=== PATIENT | female | born 1965 | race Caucasian/White ===

== ENCOUNTER 2018-05-31 09:50 | Inpatient (IN) | payer MEDICARE, OTHER | END 2018-06-17 11:21 | disposition home or self-care (01) | LOC: ADULT MH 09:50 | DX: F25.0 Schizoaffective disorder, bipolar type (principal); E86.1 Hypovolemia; I10 Essential (primary) hypertension ==

== ENCOUNTER 2022-02-09 12:38 | Emergency (ER) | payer MEDICARE ==
[~2022-02-09] VITALS: Ht 167.6 cm; Wt 72.7 kg
[~2022-02-09 12:38] MED LIST: DIVA250T8 PO; RISP2TAB85 PO; TEMA15CA PO
[2022-02-09 12:58] VITALS: BP 92/61
--- NOTE | 2022-02-09 13:10 | NUR ---
PT WENT UP TO REGISTRATION WINDOW AND STATED "I CHANGED MY MIND", TOOK OFF HER BP CUFF AND LEFT OUT THE FRONT DOOR.
== END 2022-02-09 13:10 | disposition left against medical advice (07) ==
LOC: ER 12:38
DX: G20 Parkinson's disease (principal); Z53.21 Procedure and treatment not carried out due to patient leaving prior to being seen by health care provider

== ENCOUNTER 2022-02-14 16:56 | Inpatient (IN) | payer MEDICARE, MEDICAID ==
[~2022-02-14] VITALS: Ht 167.6 cm; Wt 68.8 kg
[2022-02-14 18:45] LABS: BASOPHILS # (AUTO) 0.1 X10'3 (0-0.2); BASOPHILS % (AUTO) 0.5 % (0-1); EOSINOPHILS # (AUTO) 0.1 X10'3 (0-0.9); EOSINOPHILS % (AUTO) 0.8 % (0-6); HEMATOCRIT 32.4 % (35.0-45.0); HEMOGLOBIN 11.1 g/dl (12.0-16.0); LYMPHOCYTES # (AUTO) 2.7 X10'3 (1.1-4.8); LYMPHOCYTES % (AUTO) 28.2 % (21-51); MEAN CORPUSCULAR HEMOGLOBIN 32.6 PG (27.0-31.0); MEAN CORPUSCULAR HGB CONC 34.2 g/dL (33.0-36.5); MEAN CORPUSCULAR VOLUME 95.2 FL (78-98); MEAN PLATELET VOLUME 7.7 FL (7.4-10.4); MONOCYTES # (AUTO) 0.9 X10'3 (0-0.9); MONOCYTES % (AUTO) 9.5 % (2-12); NEUTROPHILS # (AUTO) 5.9 X10'3 (1.8-7.7); PLATELET COUNT 100 X10'3 (140-440); RED BLOOD COUNT 3.41 X10'6 (4.20-5.60); RED CELL DISTRIBUTION WIDTH 17.5 % (11.5-14.5); WHITE BLOOD COUNT 9.7 X10'3 (4.5-11.0)
[2022-02-14 18:47] LABS: ALANINE AMINOTRANSFERASE 19 U/L (12-78); ALBUMIN 3.6 G/DL (3.4-5.0); ALBUMIN/GLOBULIN RATIO 0.8 (1.1-1.5); ALKALINE PHOSPHATASE 544 IU/L (46-116); ANION GAP 9 (8-16); ASPARTATE AMINO TRANSFERASE 36 U/L (10-37); BILIRUBIN,TOTAL 0.4 MG/DL (0.1-1.0); BLOOD UREA NITROGEN 12 MG/DL (7-18); BUN/CREATININE RATIO 11.7 (6.6-38.0); CALCIUM 10.5 MG/DL (8.5-10.1); CHLORIDE 97 MMOL/L (99-107); CREATININE 1.03 MG/DL (0.40-0.90); GLUCOSE 92 MG/DL (70-104); POTASSIUM 3.7 MMOL/L (3.5-5.1); SODIUM 132 MMOL/L (135-145); TOTAL CARBON DIOXIDE 26.4 MMOL/L (24-32); TOTAL PROTEIN 7.9 G/DL (6.4-8.2); eGFR 56 ML/MIN
[2022-02-14 19:10] LABS: ETHANOL < 0.010 GM/DL (0.0-0.010)
[2022-02-14 20:08] LABS: ANISOCYTOSIS 1+; NUCLEATED RED BLOOD CELLS 3 /100WBC (0-0); PLATELET ESTIMATE DECREASED; TOTAL CELLS COUNTED 100
--- NOTE | 2022-02-14 22:40 | NUR ---
PT MOVED FROM HALLWAY 16 TO OVERFLOW BED 20. PT'S BELONGINGS HAVE BEEN TAKEN AND LOCKED UP. PT CHANGED INTO GREEN SCRUBS AND PROVIDED A URINE SAMPLE. PT NOW LYING IN BED.
[2022-02-14 22:50] LABS: CLARITY,URINE SLIGHTLY CLOUDY (Clear); GLUCOSE, URINE NEGATIVE (Neg); KETONES,URINE NEGATIVE (Neg); LEUKOCYTE ESTERASE ,URINE MODERATE (Neg); NITRITES, URINE POSITIVE (Neg); OCCULT BLOOD,URINE TRACE-INTACT (Neg); PROTEIN,URINE NEGATIVE (Neg); UROBILINOGEN,URINE 0.2 E.U/dL (0.2-1.0)
[2022-02-14 22:58] LABS: COLOR,URINE STRAW (Yellow); UA COLLECTION TYPE CLN CATCH MIDSTREAM
[2022-02-14 23:01] LABS: BACTERIA,URINE 4+ /HPF (Neg); MUCUS STRANDS FEW /LPF (Neg); RBC,URINE 0-2 /HPF (0-2); SQUAMOUS EPITHELIAL CELL,UR FEW /LPF (FEW); TRANSITIONAL EPI CELLS,URINE FEW /HPF; WBC CLUMPS,URINE FEW /HPF (NEGATIVE)
[2022-02-14 23:04] LABS: URINE AMPHETAMINE SCREEN NEGATIVE (Neg); URINE BARBITUATE SCREEN NEGATIVE (Neg); URINE BENZODIAZEPINES SCREEN NEGATIVE (Neg); URINE CANNABINOID SCREEN POSITIVE (Neg); URINE COCAINE SCREEN NEGATIVE (Neg); URINE METHADONE SCREEN NEGATIVE (Neg); URINE OPIATE SCREEN NEGATIVE (Neg); URINE PHENCYCLIDINE SCREEN NEGATIVE (Neg)
--- NOTE | 2022-02-14 23:13 | NUR ---
[facility] faxed
--- NOTE | 2022-02-14 23:30 | NUR ---
PT SLEEPING ON HER SIDE. EQUAL RISE AND FALL OF CHEST.
[2022-02-14] MEDS: sulfamethoxazole/trimethoprim DS (800/160mg) tablet PO SCH (23:55)
--- NOTE | 2022-02-15 00:30 | NUR ---
SPOKE TO [facility] CONCERNING PT'S URINE RESULTS. HE PUT IN ORDERS FOR ANTIBIOTICS. PT MEDICATED WITH FIRST DOSE AND NOW TRYING TO SLEEP AGAIN.
--- NOTE | 2022-02-15 01:30 | NUR ---
PT WALKED TO RESTROOM AND IS NOW BACK IN BED SLEEPING COMFORTABLY.
--- NOTE | 2022-02-15 02:30 | NUR ---
PT SLEEPING COMFORTABLY. EQUAL RISE AND FALL OF CHEST.
--- NOTE | 2022-02-15 03:30 | NUR ---
PT SLEEPING ON HER RIGHT SIDE. EQUAL RISE AND FALL OF CHEST.
--- NOTE | 2022-02-15 04:28 | NUR ---
PT GOT UP AND WALKED TO THE RESTROOM. PT NOW BACK IN BED AND ATTEMPTING TO SLEEP AGAIN.
--- NOTE | 2022-02-15 05:32 | NUR ---
PT IS CURLED UP WITH BLANKET AND SLEEPING ON HER SIDE AFTER HER VITALS WERE TAKEN BY TECH. EQUAL RISE AND FALL OF CHEST.
--- NOTE | 2022-02-15 07:45 | NUR ---
Pt has a baseline tremors. "That is because I have a psychiatric condition."
[2022-02-15] MEDS: sulfamethoxazole/trimethoprim DS (800/160mg) tablet PO SCH ×2 (08:25→20:29)
--- NOTE | 2022-02-15 09:22 | NUR ---
Up to void. Steady gait.
--- NOTE | 2022-02-15 09:24 | NUR ---
Pt was not hungry and did not eat breakfast. She did have a cup of coffee.
--- NOTE | 2022-02-15 10:45 | NUR ---
Nurse to Nurse report given to VANGIE Jara at [facility].
--- NOTE | 2022-02-15 11:11 | NUR ---
Report was given to VANGIE Madden in [facility]. They are not ready to accept the pt at this time but took report.
--- NOTE | 2022-02-15 12:31 | NUR ---
Pt c/o upper back pain after stretching.
[2022-02-15] MEDS ORDERED: acetaminophen 325mg tablet PO ONE (12:35)
[2022-02-15] MEDS ORDERED: PROP10TA10 PO (12:50)
[2022-02-15] MEDS ORDERED: BENZ0.5T43 PO (12:50)
[2022-02-15] MEDS ORDERED: LIT300C PO (12:50)
[2022-02-15] MEDS ORDERED: OLAN5TAB5 PO (12:50)
[2022-02-15] MEDS ORDERED: OLANZapine 5mg rapidly disint. tablet PO PRN (13:25)
[2022-02-15] MEDS ORDERED: loperamide 2mg capsule PO PRN (15:25)
[2022-02-15] MEDS ORDERED: NICOTINE POLACRILEX 2 MG LOZENGE BC PRN (15:25)
[2022-02-15] MEDS ORDERED: acetaminophen 325mg tablet PO PRN (15:25)
[2022-02-15] MEDS ORDERED: OLAN10TA3 PO (16:05)
--- NOTE | 2022-02-15 17:00 | NUR ---
ADMIT NOTE Pt admitted to [facility] at 1510 from [facility] on 5150 for GD. When [facility] clinician visited patient in her home, she was found to be disorganized, malodorous, unable to finish sentences appropriately, unable to care for herself, and not taking her medications correctly. She had rotten food in her home and wasnt sure when she had eaten last. She also reported that she was not feeling safe in her home, and was feeling that people were coming in and taking things. Skin and safety check completed. Belongings inventoried. UTI being treated with Septra
[2022-02-15] MEDS ORDERED: pneumococcal 23-VAL P-sac vacc 25 mcg/0.5ml vial IMVAC ONE (17:35)
[2022-02-15] MEDS: traMADol 50MG tablet PO PRN (18:17)
[2022-02-15 20:00] VITALS: BP 115/69
[2022-02-15] MEDS: traZODone 50mg tablet PO SCH (20:29)
[2022-02-15] MEDS: propranolol 10mg tablet PO SCH (20:29)
[2022-02-15] MEDS: benztropine 1mg tablet PO SCH (20:30)
--- NOTE | 2022-02-16 00:56 | NUR ---
Nursing Progress Note: Problem: Pt admitted to [facility] at 1510 from [facility] on 5150 for GD. When [facility] clinician visited patient in her home, she was found to be disorganized, malodorous, unable to finish sentences appropriately, unable to care for herself, and not taking her medications correctly. She had rotten food in her home and wasnt sure when she had eaten last. She also reported that she was not feeling safe in her home, and was feeling that people were coming in and taking things. Interventions: One on one with patient, administered medications with an explanation of the benefits,provided redirection, positive reinforcement, therapeutic conversation, active listening, monitored behaviors, maintained clear boundaries. Monitored for safety Q15 min. Response: Patient laying in bed at shift change. Patient 1:1, Patient speech linear with normal rate and rhythm. The patient denies A/VH SI HI. Patient reports she is here due to a back sprain when she picked up her cat. patient describes a cracking sound coming from her back and now she is here to be treated. Patient isolated to room and self most of the evening. The patient took evening meds w/o complications. Patient went to sleep shortly after med pass. Plan: Patient requires crisis interruption and stabilization with medication management and monitoring in a safe and therapeutic environment with food, clothing and snf.
[2022-02-16 07:19] VITALS: BP 93/64
[2022-02-16] MEDS: nicotine 21mg patch - 24 hr TD SCH (08:00)
[2022-02-16] MEDS: propranolol 10mg tablet PO SCH ×2 (08:00→20:43)
[2022-02-16] MEDS: sulfamethoxazole/trimethoprim DS (800/160mg) tablet PO SCH ×2 (08:19→20:43)
[2022-02-16] MEDS: OLANZapine 5mg rapidly disint. tablet PO SCH (08:19)
[2022-02-16] MEDS: benztropine 1mg tablet PO SCH ×2 (08:19→20:43)
[2022-02-16 08:41] LABS: HEMOGLOBIN A1C 6.2 % (4.5-6.2)
[2022-02-16 09:31] LABS: CHOL/HDL RATIO 3.1 (0.00-4.99); CHOLESTEROL 159 MG/DL (0-200); HDL CHOLESTEROL 51 MG/DL (35-60); LDL CHOLESTEROL 80 MG/DL (50-100); TRIGLYCERIDES 153 MG/DL (20-135)
[2022-02-16] MEDS: traMADol 50MG tablet PO PRN ×2 (15:28→20:59)
--- NOTE | 2022-02-16 17:44 | NUR ---
Nursing Progress Note: Problem: Pt admitted to [facility] at 1510 from [facility] on 5150 for GD. When [facility] clinician visited patient in her home, she was found to be disorganized, malodorous, unable to finish sentences appropriately, unable to care for herself, and not taking her medications correctly. She had rotten food in her home and wasnt sure when she had eaten last. She also reported that she was not feeling safe in her home, and was feeling that people were coming in and taking things. Interventions: One on one with patient, administered medications with an explanation of the benefits, provided redirection, positive reinforcement, therapeutic conversation, active listening, monitored behaviors, maintained clear boundaries. Monitored for safety Q15 min. Response: RN received pt. asleep in bed at start of shift. Pt. took all medications and ate breakfast. Pt. isolated to her room most of the day and is socially withdrawn. 1:1 done at bedside, pt. reports she is here because of her back pain. pt. denies all psych symptoms, however, pt. appears to be responding to internal stimuli AEB frequent thought blocking. When asked if she is hearing voices, pt. states, Well Its like seeing an image and being there, like going back in time with the light A movie kind of. Pt. is A&O to self and place only. Pt. states, youre going to be calling the [facility] when Im better right? Pt. c/o of back pain rated 10/10 and received Ultram 50mg po x2 today. Plan: Patient requires crisis interruption and stabilization with medication management and monitoring in a safe and therapeutic environment with food, clothing and usp.
[2022-02-16 19:00] VITALS: BP 103/66
[2022-02-16 19:50] LABS: BASOPHILS # (AUTO) 0.1 X10'3 (0-0.2); EOSINOPHILS # (AUTO) 0.1 X10'3 (0-0.9); HEMATOCRIT 28.7 % (35.0-45.0); HEMOGLOBIN 9.8 g/dl (12.0-16.0); MEAN CORPUSCULAR HEMOGLOBIN 32.7 PG (27.0-31.0); MEAN CORPUSCULAR HGB CONC 34.2 g/dL (33.0-36.5); MEAN CORPUSCULAR VOLUME 95.6 FL (78-98); MEAN PLATELET VOLUME 7.8 FL (7.4-10.4); MONOCYTES # (AUTO) 0.6 X10'3 (0-0.9); RED BLOOD COUNT 3.01 X10'6 (4.20-5.60)
[2022-02-16 19:51] LABS: BASOPHILS % (AUTO) 0.9 % (0-1); EOSINOPHILS % (AUTO) 1.7 % (0-6); LYMPHOCYTES # (AUTO) 2.3 X10'3 (1.1-4.8); MONOCYTES % (AUTO) 7.4 % (2-12); NEUTROPHILS # (AUTO) 4.8 X10'3 (1.8-7.7); PLATELET COUNT 97 X10'3 (140-440); RED CELL DISTRIBUTION WIDTH 18.5 % (11.5-14.5); WHITE BLOOD COUNT 7.9 X10'3 (4.5-11.0)
[2022-02-16 20:03] LABS: ALANINE AMINOTRANSFERASE 16 U/L (12-78); ALBUMIN 2.9 G/DL (3.4-5.0); ALBUMIN/GLOBULIN RATIO 0.9 (1.1-1.5); ALKALINE PHOSPHATASE 428 IU/L (46-116); ANION GAP 10 (8-16); ASPARTATE AMINO TRANSFERASE 21 U/L (10-37); BILIRUBIN,TOTAL 0.2 MG/DL (0.1-1.0); BLOOD UREA NITROGEN 9 MG/DL (7-18); BUN/CREATININE RATIO 8.7 (6.6-38.0); CALCIUM 9.9 MG/DL (8.5-10.1); CHLORIDE 101 MMOL/L (99-107); CREATININE 1.03 MG/DL (0.40-0.90); GLUCOSE 90 MG/DL (70-104); POTASSIUM 4.1 MMOL/L (3.5-5.1); SODIUM 135 MMOL/L (135-145); TOTAL CARBON DIOXIDE 24.5 MMOL/L (24-32); TOTAL PROTEIN 6.3 G/DL (6.4-8.2); eGFR 56 ML/MIN
[2022-02-16] MEDS: traZODone 50mg tablet PO SCH (20:43)
[2022-02-16] MEDS: ferrous sulfate 325mg tablet PO SCH (20:52)
[2022-02-16 22:04] LABS: NUCLEATED RED BLOOD CELLS 4 /100WBC (0-0); TOTAL CELLS COUNTED 100
[2022-02-16 22:05] LABS: ANISOCYTOSIS 1+; BURR CELLS 1+; PLATELET ESTIMATE DECREASED
--- NOTE | 2022-02-17 02:56 | NUR ---
Nursing Progress Note: Problem: Pt admitted to [facility] at 1510 from [facility] on 5150 for GD. When [facility] clinician visited patient in her home, she was found to be disorganized, malodorous, unable to finish sentences appropriately, unable to care for herself, and not taking her medications correctly. She had rotten food in her home and wasnt sure when she had eaten last. She also reported that she was not feeling safe in her home, and was feeling that people were coming in and taking things. Interventions: One on one with patient, administered medications with an explanation of the benefits, provided redirection, positive reinforcement, therapeutic conversation, active listening, monitored behaviors, maintained clear boundaries. Monitored for safety Q15 min. Response: Patient is pleasant and cooperative with care; compliant with medication. PRN Tramadol provided per patient request. Patient reported her Nicotine patch fell off during the day. She denies SI, HI, A/VH. She remains self isolative and did not participate in HS snack; observed sleeping and does not appear to be having difficulty. Plan: Patient requires crisis interruption and stabilization with medication management and monitoring in a safe and therapeutic environment with food, clothing and prison.
[2022-02-17 08:00] VITALS: BP 85/50
[2022-02-17] MEDS: propranolol 10mg tablet PO SCH ×2 (08:00→20:00)
[2022-02-17] MEDS: ferrous sulfate 325mg tablet PO SCH ×2 (08:57→20:42)
[2022-02-17] MEDS: benztropine 1mg tablet PO SCH ×2 (08:57→20:42)
[2022-02-17] MEDS: sulfamethoxazole/trimethoprim DS (800/160mg) tablet PO SCH ×2 (08:57→20:42)
[2022-02-17] MEDS: nicotine 21mg patch - 24 hr TD SCH (08:58)
[2022-02-17] MEDS: OLANZapine 5mg rapidly disint. tablet PO SCH (08:58)
[2022-02-17 09:00] VITALS: BP 93/56
[2022-02-17] MEDS: magnesium hydroxide 30ml (MOM) UD suspension PO PRN (14:58)
--- NOTE | 2022-02-17 15:04 | NUR ---
Nursing Progress Note: KIA Problem: Pt admitted to [facility] at 1510 from [facility] on 5150 for GD. When [facility] clinician visited patient in her home, she was found to be disorganized, malodorous, unable to finish sentences appropriately, unable to care for herself, and not taking her medications correctly. She had rotten food in her home and wasnt sure when she had eaten last. She also reported that she was not feeling safe in her home, and was feeling that people were coming in and taking things. Interventions: One on one with patient, administered medications with an explanation of the benefits, provided redirection, positive reinforcement, therapeutic conversation, active listening, monitored behaviors, maintained clear boundaries. Monitored for safety Q15 min. Response: Received pt. asleep in bed. 1:1 done at bedside, A&O X4. Medication compliant. Kia states she is here because, my back was injured causing me to put my mental health concerns somewhere else. Pt denies A/VH stating, I visualize pictures because I like art. Pt attended breakfast eating 0% and 25% for lunch. Pt continues to isolate and spent the majority of the shift in bed other than meals and snack. Pt c/o constipation, MOM administered. Plan: Patient requires crisis interruption and stabilization with medication management and monitoring in a safe and therapeutic environment with food, clothing and retirement.
[2022-02-17] MEDS: traMADol 50MG tablet PO PRN (16:37)
[2022-02-17 19:58] VITALS: BP 88/59
[2022-02-17] MEDS: traZODone 50mg tablet PO SCH (20:42)
[2022-02-17 20:46] VITALS: BP 90/70
--- NOTE | 2022-02-18 05:14 | NUR ---
Nursing Progress Note: Problem: Pt admitted to [facility] at 1510 from [facility] on 5150 for GD. When [facility] clinician visited patient in her home, she was found to be disorganized, malodorous, unable to finish sentences appropriately, unable to care for herself, and not taking her medications correctly. She had rotten food in her home and wasnt sure when she had eaten last. She also reported that she was not feeling safe in her home, and was feeling that people were coming in and taking things. Interventions: One on one with patient, administered medications with an explanation of the benefits, provided redirection, positive reinforcement, therapeutic conversation, active listening, monitored behaviors, maintained clear boundaries. Monitored for safety Q15 min. Response: Patient is pleasant and cooperative with care; compliant with medication. PRN Nicotine lozenge provided and patch removed. She denies SI, HI, A/VH; continues to report being here for back problems. She was briefly observed on the unit and participated in HS snack; observed sleeping and does not appear to be having difficulty. Plan: Patient requires crisis interruption and stabilization with medication management and monitoring in a safe and therapeutic environment with food, clothing and assisted.
[2022-02-18 07:56] VITALS: BP 91/61
[2022-02-18] MEDS: benztropine 1mg tablet PO SCH ×2 (08:07→20:42)
[2022-02-18] MEDS: ferrous sulfate 325mg tablet PO SCH ×2 (08:07→20:42)
[2022-02-18] MEDS: sulfamethoxazole/trimethoprim DS (800/160mg) tablet PO SCH ×2 (08:08→20:42)
[2022-02-18] MEDS: propranolol 10mg tablet PO SCH ×2 (08:08→20:00)
[2022-02-18] MEDS: nicotine 21mg patch - 24 hr TD SCH (08:09)
[2022-02-18] MEDS: OLANZapine 5mg rapidly disint. tablet PO SCH (08:09)
[2022-02-18 11:43] LABS: % IRON SATURATION 46 % (11-46); IRON 86 UG/DL (49-151); TOTAL IRON BINDING CAPACITY 188 UG/DL (259-388)
[2022-02-18] MEDS: mag hydrox/Alum hydrox/simeth 30ml oral suspension PO PRN ×2 (12:37→16:32)
--- NOTE | 2022-02-18 17:02 | NUR ---
Nursing Progress Note: Problem: Pt admitted to [facility] at 1510 from [facility] on 5150 for GD. When [facility] clinician visited patient in her home, she was found to be disorganized, malodorous, unable to finish sentences appropriately, unable to care for herself, and not taking her medications correctly. She had rotten food in her home and wasnt sure when she had eaten last. She also reported that she was not feeling safe in her home, and was feeling that people were coming in and taking things. Interventions: Provided Medication Administration & Management; Maintained a Safe & Supportive Environment; Clear & Simple Instructions; Direction & Encouragement Regarding Performance of ADLs; Monitored Behaviors and Maintained Clear Boundaries; Provided Physical Assessment and 1:1 Patient Interview; Therapeutic Conversation & Active Listening; Education & Monitoring; Encouragement to spend time outside of his/her room; Encouragement to Attend Group Meetings; Clarification of PRN Medications w/Uses & Clarification of Dosage/Times & Blood Sugar Monitoring. Response: Received patient when she arrived in the Community Room for breakfast at 0805. Patient is pleasant and cooperative in taking her medications at 0800, as well as her physical examination and 1:1 interview questions. Patient c/o back pain rated at a 10 on a scale of 1-10. Patient received relief from Ultram approximately 1 hour later. Patient appears to be slightly disorganized, laughs easily and gets along well with others. Patient reports she feels safe at [facility] while staying here. Will continue to monitor patient closely over the next few days while assigned to her care. Plan: Pt. requires a safe and supportive environment, medication titration until effective dose, needs to be monitored for crisis stabilization, and a viable plan for food, water & retirement for discharge.
[2022-02-18] MEDS: traMADol 50MG tablet PO PRN (17:28)
[2022-02-18 19:57] VITALS: BP 100/78
[2022-02-18] MEDS: traZODone 50mg tablet PO SCH (20:42)
--- NOTE | 2022-02-19 04:23 | NUR ---
Nursing Progress Note: Problem: Pt admitted to [facility] at 1510 from [facility] on 5150 for GD. When [facility] clinician visited patient in her home, she was found to be disorganized, malodorous, unable to finish sentences appropriately, unable to care for herself, and not taking her medications correctly. She had rotten food in her home and wasnt sure when she had eaten last. She also reported that she was not feeling safe in her home, and was feeling that people were coming in and taking things. Interventions: One on one with patient, administered medications with an explanation of the benefits, provided redirection, positive reinforcement, therapeutic conversation, active listening, monitored behaviors, maintained clear boundaries. Monitored for safety Q15 min. Response: Patient is pleasant and cooperative with care; compliant with medication. Nicotine patch removed. She denies SI, HI, A/VH; no apparent delusions expressed this shift. She remains in her room the majority of the shift but participated in HS snack prior to bed; observed sleeping and does not appear to be having difficulty. Plan: Patient requires crisis interruption and stabilization with medication management and monitoring in a safe and therapeutic environment with food, clothing and fci.
--- NOTE | 2022-02-19 07:39 | NUR ---
Initial: Pt admitted w/ schizophrenia per EMR. Currently on Regular diet w/ avg intake 45% of meals and participates in snacks per documentation, only partially meeting needs. Will provide smoothies and shakes with meals for additional calories/protein. [facility] 02/17 receiving PRN bowel care. Will continue to monitor. Recs; 1. Continue Regular diet as tolerated 2. Smoothie WB, Shake WS 3. Bowel care PRN 4. Weekly wts Addendum: 02/19/22 at [address] Amended: Links added.
[2022-02-19 08:00] VITALS: BP 109/78
[2022-02-19] MEDS: ferrous sulfate 325mg tablet PO SCH ×2 (08:15→20:45)
[2022-02-19] MEDS: benztropine 1mg tablet PO SCH ×2 (08:15→20:45)
[2022-02-19] MEDS: propranolol 10mg tablet PO SCH ×2 (08:15→20:46)
[2022-02-19] MEDS: sulfamethoxazole/trimethoprim DS (800/160mg) tablet PO SCH ×2 (08:16→20:45)
[2022-02-19] MEDS: OLANZapine 5mg rapidly disint. tablet PO SCH (08:16)
[2022-02-19] MEDS: nicotine 21mg patch - 24 hr TD SCH (08:16)
[2022-02-19] MEDS: traMADol 50MG tablet PO PRN ×2 (12:16→19:28)
[2022-02-19] MEDS: nystatin 15 GM powder TP SCH ×2 (12:16→20:45)
[2022-02-19] MEDS: acetaminophen 325mg tablet PO PRN (16:27)
--- NOTE | 2022-02-19 17:26 | NUR ---
Nursing Progress Note: Problem: Pt admitted to [facility] at 1510 from [facility] on 5150 for GD. When [facility] clinician visited patient in her home, she was found to be disorganized, malodorous, unable to finish sentences appropriately, unable to care for herself, and not taking her medications correctly. She had rotten food in her home and wasnt sure when she had eaten last. She also reported that she was not feeling safe in her home, and was feeling that people were coming in and taking things. Interventions: Provided Medication Administration & Management; Maintained a Safe & Supportive Environment; Clear & Simple Instructions; Direction & Encouragement Regarding Performance of ADLs; Monitored Behaviors and Maintained Clear Boundaries; Provided Physical Assessment and 1:1 Patient Interview; Therapeutic Conversation & Active Listening; Education & Monitoring; Encouragement to spend time outside of his/her room; Encouragement to Attend Group Meetings; Clarification of PRN Medications w/Uses & Clarification of Dosage/Times & Blood Sugar Monitoring. Response: Patient was sleeping soundly this morning and she would wake up briefly to inform that she was going to the dining room to eat breakfast, then would fall right back to sleep. Patient took her medications while in bed this morning, and refused to get out of bed for breakfast. Patient has drank multiple pitchers of H20 throughout today. Patient woke up at approximately 0855 and stayed up and out of bed today. Patient spent most of the day with other peers in the Community Room. Patient reported she is itching in my vaginal area. Redness noted and spoke with Dr. Pruitt and ordered Nystatin Powder to be used tid. Patient used after she showered and received clean underwear and then used the Nystatin Powder on her vaginal area. Patient c/o low posterior back pain which she received Ultram x1 and Tylenol x1 for c/o back pain rated at a 10. Patient is linear most of the time and denies SI, AH & VH. Patient resting in bed at this time. Plan: Pt. requires a safe and supportive environment, medication titration until effective dose, needs to be monitored for crisis stabilization, and a viable plan for food, water & custodial for discharge.
[2022-02-19 19:38] VITALS: BP 113/78
[2022-02-19] MEDS: traZODone 50mg tablet PO SCH (20:45)
[2022-02-19] MEDS: mag hydrox/Alum hydrox/simeth 30ml oral suspension PO PRN (21:25)
--- NOTE | 2022-02-20 05:08 | NUR ---
Nursing Progress Note: Problem: Pt admitted to [facility] at 1510 from [facility] on 5150 for GD. When [facility] clinician visited patient in her home, she was found to be disorganized, malodorous, unable to finish sentences appropriately, unable to care for herself, and not taking her medications correctly. She had rotten food in her home and wasnt sure when she had eaten last. She also reported that she was not feeling safe in her home, and was feeling that people were coming in and taking things. Interventions: One on one with patient, administered medications with an explanation of the benefits, provided redirection, positive reinforcement, therapeutic conversation, active listening, monitored behaviors, maintained clear boundaries. Monitored for safety Q15 min. Response: Patient is pleasant and cooperative with care; compliant with medication. Nicotine patch removed. PRN Tramadol and Maalox provided. She denies SI, HI, A/VH. She remains fixated on back pain; reporting 10/10 pain even after receiving pain medication. She mostly stays in her room, social with roommate and staff, participated in HS snack prior to bed; she's observed sleeping and does not appear to be having difficulty. Plan: Patient requires crisis interruption and stabilization with medication management and monitoring in a safe and therapeutic environment with food, clothing and usp.
[2022-02-20] MEDS: benztropine 1mg tablet PO SCH ×2 (07:57→20:20)
[2022-02-20] MEDS: ferrous sulfate 325mg tablet PO SCH ×2 (07:58→20:20)
[2022-02-20] MEDS: OLANZapine 5mg rapidly disint. tablet PO SCH (07:58)
[2022-02-20] MEDS: nicotine 21mg patch - 24 hr TD SCH (07:59)
[2022-02-20] MEDS: propranolol 10mg tablet PO SCH ×2 (07:59→20:20)
[2022-02-20 08:00] VITALS: BP 84/58
[2022-02-20] MEDS: nystatin 15 GM powder TP SCH ×3 (08:02→20:20)
[2022-02-20] MEDS: traMADol 50MG tablet PO PRN ×2 (09:28→17:20)
[2022-02-20] MEDS: mag hydrox/Alum hydrox/simeth 30ml oral suspension PO PRN ×2 (16:09→22:29)
--- NOTE | 2022-02-20 17:08 | NUR ---
Nursing Progress Note: Problem: Pt admitted to [facility] at 1510 from [facility] on 5150 for GD. When [facility] clinician visited patient in her home, she was found to be disorganized, malodorous, unable to finish sentences appropriately, unable to care for herself, and not taking her medications correctly. She had rotten food in her home and wasnt sure when she had eaten last. She also reported that she was not feeling safe in her home, and was feeling that people were coming in and taking things. Interventions: Provided Medication Administration & Management; Maintained a Safe & Supportive Environment; Clear & Simple Instructions; Direction & Encouragement Regarding Performance of ADLs; Monitored Behaviors and Maintained Clear Boundaries; Provided Physical Assessment and 1:1 Patient Interview; Therapeutic Conversation & Active Listening; Education & Monitoring; Encouragement to spend time outside of his/her room; Encouragement to Attend Group Meetings; Clarification of PRN Medications w/Uses & Clarification of Dosage/Times & Blood Sugar Monitoring. Response: Patient awoke easily for her medications then refused to get up for breakfast in the Community Room. `Patient requested a Pain pill and received Ultram for c/o low back pain rated at 10 on a scale of 1-10. Post f/u after pain pill was administered patient was sleeping soundly. Physical Assessment & 1:1 Patient Interview completed. Patient denied SI, AH & VH. Patient is pleasant and cooperative at all times. Patients blood pressure was 84/58 sitting right arm. Inderal was held as her BP was less than 100. Patient reports her yeast infection, has improved since starting Nystatin Powder yesterday afternoon. Patient joined the [facility] who ambulated to the [facility] outside for approximately 30 minutes then returned to the department. Patient rested in bed most of the day today. Plan: Pt. requires a safe and supportive environment, medication titration until effective dose, needs to be monitored for crisis stabilization, and a viable plan for food, water & care home for discharge.
[2022-02-20 20:00] VITALS: BP 102/61
[2022-02-20] MEDS: traZODone 50mg tablet PO SCH (20:20)
[2022-02-20] MEDS: acetaminophen 325mg tablet PO PRN (22:30)
--- NOTE | 2022-02-21 05:00 | NUR ---
Nursing Progress Note: Problem: Pt admitted to [facility] at 1510 from [facility] on 5150 for GD. When [facility] clinician visited patient in her home, she was found to be disorganized, malodorous, unable to finish sentences appropriately, unable to care for herself, and not taking her medications correctly. She had rotten food in her home and wasnt sure when she had eaten last. She also reported that she was not feeling safe in her home, and was feeling that people were coming in and taking things. Interventions: One on one with patient, administered medications with an explanation of the benefits, provided redirection, positive reinforcement, therapeutic conversation, active listening, monitored behaviors, maintained clear boundaries. Monitored for safety Q15 min. Response: Patient is pleasant and cooperative with care; compliant with medication. PRN Tylenol and Maalox provided this shift; Nicotine patch removed. She denies SI, HI, A/VH. She is social and participated in HS snack prior to bed; observed sleeping and does not appear to be having difficulty. Plan: Patient requires crisis interruption and stabilization with medication management and monitoring in a safe and therapeutic environment with food, clothing and skilled nursing.
[2022-02-21 07:23] VITALS: BP 92/59
[2022-02-21] MEDS: nystatin 15 GM powder TP SCH ×2 (08:00→13:00)
[2022-02-21] MEDS: propranolol 10mg tablet PO SCH (08:00)
[2022-02-21] MEDS: ferrous sulfate 325mg tablet PO SCH (08:15)
[2022-02-21] MEDS: benztropine 1mg tablet PO SCH (08:15)
[2022-02-21] MEDS: OLANZapine 5mg rapidly disint. tablet PO SCH (08:16)
[2022-02-21] MEDS: nicotine 21mg patch - 24 hr TD SCH (08:18)
[2022-02-21] MEDS: traMADol 50MG tablet PO PRN ×2 (08:22→14:40)
[2022-02-21] MEDS: magnesium hydroxide 30ml (MOM) UD suspension PO PRN (10:18)
[2022-02-21] MEDS ORDERED: TRAZ-251 PO (13:52)
[2022-02-21] MEDS ORDERED: OLAN20TA34 PO (13:52)
[2022-02-21] MEDS ORDERED: PROP20TA6 PO (13:52)
[2022-02-21] MEDS ORDERED: NICO-687 TD (13:52)
[2022-02-21] MEDS ORDERED: FER325T PO (13:52)
[2022-02-21] MEDS ORDERED: BENZ0.5T4 PO (13:52)
[2022-02-21] MEDS ORDERED: LIDO700A32 TOP (13:55)
--- NOTE | 2022-02-21 14:53 | NUR ---
DISCHARGE NOTE: Pt. discharged to home, driven by [employer] li[employer] car driver. RN went over all discharge paperwork with patient and she verbalized understanding and signed all paperwork including firearms restriction, emergency phone numbers (including 911), and discharge f/u plan and medications. Pt. is A&O to self and place and is in no apparent distress. Pt denies SI/HI, A/V hallucinations. Pt. discharged with all belongings and valuables.
== END 2022-02-21 14:53 | disposition home or self-care (01) | DRG 885 ==
LOC: ER 16:57 → ED HOLD 02-15 12:25 → ADULT MH 02-15 15:06
PROVIDERS: ADMIT Psychiatry & Neurology Psychiatry; ATTEND Psychiatry & Neurology Psychiatry
DX: F25.0 Schizoaffective disorder, bipolar type (principal); N18.30 Chronic kidney disease, stage 3 unspecified; E87.1 Hypo-osmolality and hyponatremia; N39.0 Urinary tract infection, site not specified; D64.9 Anemia, unspecified; Z20.822 Contact with and (suspected) exposure to COVID-19; D69.6 Thrombocytopenia, unspecified; F15.10 Other stimulant abuse, uncomplicated; E83.52 Hypercalcemia; F12.10 Cannabis abuse, uncomplicated; G89.29 Other chronic pain; M54.9 Dorsalgia, unspecified; F17.210 Nicotine dependence, cigarettes, uncomplicated; Z79.899 Other long term (current) drug therapy; Z56.0 Unemployment, unspecified; Z91.199 Patient's noncompliance with other medical treatment and regimen due to unspecified reason; Z28.21 Immunization not carried out because of patient refusal; Z88.0 Allergy status to penicillin
CPT/HCPCS: 36415; 80053; 80061; 80178; 80305; 80320; 81001; 83036; 83540; 83550; 84443; 85007; 85025; 87081; 87811; 90732; 99285

== ENCOUNTER 2024-04-01 16:08 | Emergency (ER) | payer MEDICARE, MEDICAID ==
[~2024-04-01] VITALS: Ht 167.6 cm; Wt 53.8 kg
[~2024-04-01 16:08] MED LIST changes: +BENZ0.5T44 PO; -DIVA250T8 PO; +FER325T PO; +LIDO700A32 TOP; +NICO-687 TD; +OLAN20TA81 PO; +PROP20TA6 PO; -RISP2TAB85 PO; -TEMA15CA PO; +TRAZ-251 PO
[2024-04-01] MEDS: LORazepam 1 MG tablet PO ONE (16:38)
[2024-04-01 17:05] LABS: BASOPHILS # (AUTO) 0.1 X10'3 (0-0.2); BASOPHILS % (AUTO) 1.3 % (0-1); EOSINOPHILS # (AUTO) 0.2 X10'3 (0-0.9); EOSINOPHILS % (AUTO) 2.4 % (0-6); HEMATOCRIT 34.3 % (35.0-45.0); HEMOGLOBIN 11.7 g/dl (12.0-16.0); LYMPHOCYTES # (AUTO) 2.1 X10'3 (1.1-4.8); MEAN CORPUSCULAR HEMOGLOBIN 38.1 PG (27.0-31.0); MEAN CORPUSCULAR HGB CONC 34.1 g/dL (33.0-36.5); MEAN CORPUSCULAR VOLUME 111.6 FL (78-98); MEAN PLATELET VOLUME 7.6 FL (7.4-10.4); MONOCYTES % (AUTO) 12.7 % (2-12); NEUTROPHILS # (AUTO) 4.6 X10'3 (1.8-7.7); NEUTROPHILS % (AUTO) 57.6 % (42-75); PLATELET COUNT 283 X10'3 (140-440); RED BLOOD COUNT 3.08 X10'6 (4.20-5.60); RED CELL DISTRIBUTION WIDTH 18.2 % (11.5-14.5); WHITE BLOOD COUNT 7.9 X10'3 (4.5-11.0)
[2024-04-01] MEDS ORDERED: ARIP5TAB12 PO (17:13)
[2024-04-01] MEDS ORDERED: ROPI0.5T37 PO (17:13)
[2024-04-01] MEDS ORDERED: BENZ1TAB97 PO (17:13)
[2024-04-01] MEDS ORDERED: LIT300C PO (17:13)
[2024-04-01] MEDS ORDERED: SERT50TA PO (17:13)
[2024-04-01] MEDS ORDERED: PROP10TA10 PO (17:13)
[2024-04-01] MEDS ORDERED: VALB40CA2 PO (17:13)
[2024-04-01] MEDS ORDERED: OLAN5TAB5 PO (17:13)
[2024-04-01 17:28] LABS: ALBUMIN 3.6 G/DL (3.4-5.0); ANION GAP 4 (8-16); BLOOD UREA NITROGEN 7 MG/DL (7-18); CALCIUM 8.8 MG/DL (8.5-10.1); CHLORIDE 104 MMOL/L (99-107); CREATININE 1.17 MG/DL (0.40-0.90); ETHANOL < 10 MG/DL (<10); GLUCOSE 79 MG/DL (70-104); POTASSIUM 4.2 MMOL/L (3.5-5.1); SODIUM 138 MMOL/L (135-145); TOTAL CARBON DIOXIDE 29.8 MMOL/L (24-32); eCRCL 46 ML/MIN; eGFR 48 ML/MIN
[2024-04-01 17:51] LABS: PLATELET ESTIMATE NORMAL
[2024-04-01 17:52] LABS: ANISOCYTOSIS 2+
[2024-04-01 18:16] LABS: BILIRUBIN,URINE NEGATIVE (Neg); CLARITY,URINE CLEAR (Clear); COLOR,URINE YELLOW (Yellow); GLUCOSE, URINE NEGATIVE (Neg); KETONES,URINE NEGATIVE (Neg); LEUKOCYTE ESTERASE ,URINE TRACE (Neg); NITRITES, URINE NEGATIVE (Neg); OCCULT BLOOD,URINE TRACE-INTACT (Neg); PH,URINE 6.5 (4.8-8.0); PROTEIN,URINE NEGATIVE (Neg); UROBILINOGEN,URINE 0.2 E.U/dL (0.2-1.0)
[2024-04-01 18:18] LABS: URINE HCG NEGATIVE (NEG)
[2024-04-01 18:20] LABS: UA COLLECTION TYPE CLN CATCH MIDSTREAM
[2024-04-01 18:22] LABS: BACTERIA,URINE 1+ /HPF (Neg); MUCUS STRANDS FEW /LPF (Neg); RBC,URINE 0-2 /HPF (0-2); RENAL CELLS, URINE FEW /HPF; SQUAMOUS EPITHELIAL CELL,UR MODERATE /LPF (FEW); TRANSITIONAL EPI CELLS,URINE FEW /HPF
[2024-04-01 18:23] LABS: AMORPHOUS PHOSPHATES 1+
[2024-04-01 18:31] LABS: URINE AMPHETAMINE SCREEN POSITIVE (Neg); URINE BARBITUATE SCREEN NEGATIVE (Neg); URINE BENZODIAZEPINES SCREEN NEGATIVE (Neg); URINE CANNABINOID SCREEN POSITIVE (Neg); URINE COCAINE SCREEN NEGATIVE (Neg); URINE METHADONE SCREEN NEGATIVE (Neg); URINE OPIATE SCREEN NEGATIVE (Neg); URINE PHENCYCLIDINE SCREEN NEGATIVE (Neg)
[2024-04-01] MEDS: VALBENAZINE TOSYLATE PO SCH (20:44)
[2024-04-01] MEDS: sertraline 50mg tablet PO SCH (20:46)
[2024-04-01] MEDS: olanzapine 10mg tablet PO SCH (20:47)
[2024-04-01] MEDS: ROPINIRole 0.25mg tablet PO SCH (20:47)
[2024-04-01] MEDS: lithium carbonate 150mg capsule PO SCH (20:47)
[2024-04-01] MEDS: benztropine 1mg tablet PO SCH (20:47)
[2024-04-01] MEDS: propranolol 10mg tablet PO SCH (20:51)
[2024-04-02 05:52] VITALS: BP 90/62; PULSE 88; TEMP 98.9; O2SAT 98
[2024-04-02] MEDS: aripiprazole 5mg tablet PO SCH (09:27)
[2024-04-02 19:43] VITALS: RESP 16
== END 2024-04-02 20:08 | disposition still patient (30) ==
LOC: ER 16:09
DX: Z73.6 Limitation of activities due to disability (principal); F31.9 Bipolar disorder, unspecified; Z56.0 Unemployment, unspecified; Z88.0 Allergy status to penicillin; Z79.899 Other long term (current) drug therapy; Z20.822 Contact with and (suspected) exposure to COVID-19
CPT/HCPCS: 36415; 80048; 80178; 80305; 81001; 81025; 84443; 85008; 85025; 87502; 87503; 87811; 92508; 92616; 99285; G0480; 80320

== ENCOUNTER 2024-07-24 15:14 | Inpatient (IN) | payer MEDICARE, MEDICAID ==
[~2024-07-24] VITALS: Ht 167.6 cm; Wt 54.5 kg
[~2024-07-24 15:14] MED LIST changes: +ARIP5TAB12 PO; -BENZ0.5T44 PO; +BENZ1TAB97 PO; -FER325T PO; -LIDO700A32 TOP; +LIT300C PO; -NICO-687 TD; -OLAN20TA81 PO; +OLAN5TAB5 PO; +PROP10TA10 PO; -PROP20TA6 PO; +ROPI0.5T37 PO; +SERT50TA PO; -TRAZ-251 PO; +VALB40CA2 PO
[2024-07-24] MEDS: normal saline 1000ML IV soln IV ONE (16:32)
[2024-07-24 17:20] LABS: BASOPHILS % (AUTO) 0.6 % (0-1); EOSINOPHILS # (AUTO) 0.1 X10'3 (0-0.9); EOSINOPHILS % (AUTO) 0.8 % (0-6); HEMATOCRIT 37.3 % (35.0-45.0); HEMOGLOBIN 12.9 g/dl (12.0-16.0); LYMPHOCYTES # (AUTO) 2.1 X10'3 (1.1-4.8); MEAN CORPUSCULAR HEMOGLOBIN 37.6 PG (27.0-31.0); MEAN CORPUSCULAR HGB CONC 34.5 g/dL (33.0-36.5); MEAN CORPUSCULAR VOLUME 109.2 FL (78-98); MONOCYTES # (AUTO) 0.7 X10'3 (0-0.9); MONOCYTES % (AUTO) 9.2 % (2-12); NEUTROPHILS # (AUTO) 4.2 X10'3 (1.8-7.7); NEUTROPHILS % (AUTO) 59.4 % (42-75); PLATELET COUNT 211 X10'3 (140-440); RED BLOOD COUNT 3.42 X10'6 (4.20-5.60); RED CELL DISTRIBUTION WIDTH 14.1 % (11.5-14.5); WHITE BLOOD COUNT 7.1 X10'3 (4.5-11.0)
[2024-07-24 17:40] LABS: ALANINE AMINOTRANSFERASE 21 U/L (12-78); ALBUMIN 3.7 G/DL (3.4-5.0); ALBUMIN/GLOBULIN RATIO 1.1 (1.1-1.5); ALKALINE PHOSPHATASE 67 IU/L (46-116); ANION GAP 6 (8-16); ASPARTATE AMINO TRANSFERASE 16 U/L (10-37); BILIRUBIN,DIRECT 0.1 MG/DL (0-0.3); BILIRUBIN,TOTAL 0.3 MG/DL (0.1-1.0); BLOOD UREA NITROGEN 28 MG/DL (7-18); BUN/CREATININE RATIO 19.2 (10.0-20.0); CHLORIDE 95 MMOL/L (99-107); CREATININE 1.46 MG/DL (0.40-0.90); GLUCOSE 89 MG/DL (70-104); POTASSIUM 3.1 MMOL/L (3.5-5.1); SODIUM 133 MMOL/L (135-145); TOTAL CARBON DIOXIDE 32.5 MMOL/L (24-32); TOTAL PROTEIN 7.1 G/DL (6.4-8.2); eCRCL 37 ML/MIN; eGFR 37 ML/MIN
[2024-07-24 17:52] LABS: ETHANOL < 10 MG/DL (<10)
[2024-07-24 18:17] LABS: BILIRUBIN,URINE NEGATIVE (Neg); CLARITY,URINE CLEAR (Clear); COLOR,URINE YELLOW (Yellow); GLUCOSE, URINE NEGATIVE (Neg); KETONES,URINE NEGATIVE (Neg); LEUKOCYTE ESTERASE ,URINE MODERATE (Neg); NITRITES, URINE NEGATIVE (Neg); OCCULT BLOOD,URINE TRACE-INTACT (Neg); PH,URINE 7.5 (4.8-8.0); PROTEIN,URINE TRACE mg/dl (Neg); UROBILINOGEN,URINE 0.2 E.U/dL (0.2-1.0)
[2024-07-24 18:22] LABS: UA COLLECTION TYPE NON-SPECIFIED
[2024-07-24 18:24] LABS: BACTERIA,URINE 1+ /HPF (Neg); SQUAMOUS EPITHELIAL CELL,UR MODERATE /LPF (FEW); TRANSITIONAL EPI CELLS,URINE FEW /HPF
[2024-07-24] MEDS: ondansetron/PF 4mg/2ml inj IV ONE (18:31)
[2024-07-24] MEDS: morphine 2 MG/ML inj. syringe IV ONE (18:32)
[2024-07-24] MEDS: pantoprazole 40 MG vial IV ONE (18:32)
[2024-07-24 18:36] LABS: URINE AMPHETAMINE SCREEN NEGATIVE (Neg); URINE BARBITUATE SCREEN NEGATIVE (Neg); URINE BENZODIAZEPINES SCREEN NEGATIVE (Neg); URINE CANNABINOID SCREEN POSITIVE (Neg); URINE COCAINE SCREEN NEGATIVE (Neg); URINE METHADONE SCREEN NEGATIVE (Neg); URINE OPIATE SCREEN NEGATIVE (Neg); URINE PHENCYCLIDINE SCREEN NEGATIVE (Neg)
[2024-07-24] MEDS: CefTRIAXone 2gm/D5W 50ml BAG 50 ML IV ONE (18:48)
[2024-07-24] MEDS: potassium Cl 20 mEq SR tablet PO ONE (19:20)
[2024-07-24] MEDS ORDERED: potassium Cl 40MEQ/1/2NS 520ml 520 ML IV PRN (20:00)
[2024-07-24] MEDS ORDERED: potassium Cl 20 mEq SR tablet PO PRN (20:00)
[2024-07-24] MEDS ORDERED: magnesium Cl slow-release 64mg tablet PO PRN (20:00)
[2024-07-24] MEDS: K and/or MAG REPLACEMENT MC SCH (20:00)
[2024-07-24] MEDS ORDERED: mag hydrox/Alum hydrox/simeth 30ml oral suspension PO PRN (20:00)
[2024-07-24] MEDS ORDERED: magnesium sulf-water 2g/50mL 50 ML IV PRN (20:00)
[2024-07-24] MEDS ORDERED: magnesium sulf-water 4G/100mL 100 ML IV PRN (20:00)
[2024-07-24] MEDS ORDERED: acetaminophen 325mg tablet PO PRN (20:00)
[2024-07-24] MEDS ORDERED: morphine 2 MG/ML inj. syringe IV PRN (20:00)
[2024-07-24] MEDS ORDERED: magnesium hydroxide 30ml (MOM) UD suspension PO PRN (20:00)
[2024-07-24] MEDS ORDERED: ipratropium/albuterol 3ml nebule NEB PRN (20:05)
[2024-07-24] MEDS: potassium Cl 20 mEq SR tablet PO PRN (20:28)
[2024-07-24] MEDS: docusate sod 100mg capsule PO SCH (20:28)
[2024-07-24] MEDS: ringers solution, lacted 1,000 ML IV SCH (20:34)
[2024-07-24 20:42] LABS: HEMOGLOBIN A1C 5.4 % (4.5-6.2)
[2024-07-24 20:47] LABS: PRO BRAIN NATRIURETIC PEPTIDE 104 PG/ML (0-125); THYROID STIMULATING HORMONE 0.97 ulU/ml (0.34-4.50)
[2024-07-24 21:10] VITALS: BP 139/79; PULSE 89; RESP 18; TEMP 98.5; O2SAT 98
[2024-07-24 21:23] LABS: OCCULT BLOOD STOOL POSITIVE (Neg)
[2024-07-24 22:00] VITALS: BP 139/79; PULSE 86; RESP 20; TEMP 98.5; O2SAT 95
[2024-07-25 02:19] LABS: BASOPHILS % (AUTO) 0.7 % (0-1); EOSINOPHILS % (AUTO) 0.6 % (0-6); HEMATOCRIT 33.9 % (35.0-45.0); HEMOGLOBIN 11.9 g/dl (12.0-16.0); LYMPHOCYTES # (AUTO) 1.1 X10'3 (1.1-4.8); LYMPHOCYTES % (AUTO) 20.1 % (21-51); MEAN CORPUSCULAR HEMOGLOBIN 38.5 PG (27.0-31.0); MEAN CORPUSCULAR HGB CONC 35.1 g/dL (33.0-36.5); MEAN CORPUSCULAR VOLUME 109.6 FL (78-98); MEAN PLATELET VOLUME 7.2 FL (7.4-10.4); MONOCYTES # (AUTO) 0.6 X10'3 (0-0.9); MONOCYTES % (AUTO) 10.3 % (2-12); NEUTROPHILS # (AUTO) 3.8 X10'3 (1.8-7.7); NEUTROPHILS % (AUTO) 68.3 % (42-75); PLATELET COUNT 199 X10'3 (140-440); RED BLOOD COUNT 3.09 X10'6 (4.20-5.60); RED CELL DISTRIBUTION WIDTH 14.2 % (11.5-14.5); WHITE BLOOD COUNT 5.5 X10'3 (4.5-11.0)
[2024-07-25] MEDS: ondansetron/PF 4mg/2ml inj IV PRN (02:34)
[2024-07-25 02:47] LABS: ALANINE AMINOTRANSFERASE 12 U/L (12-78); ALBUMIN 3.1 G/DL (3.4-5.0); ALKALINE PHOSPHATASE 59 IU/L (46-116); ANION GAP 7 (8-16); ASPARTATE AMINO TRANSFERASE 15 U/L (10-37); BILIRUBIN,TOTAL 0.2 MG/DL (0.1-1.0); BLOOD UREA NITROGEN 19 MG/DL (7-18); BUN/CREATININE RATIO 16.4 (10.0-20.0); CHLORIDE 101 MMOL/L (99-107); CHOL/HDL RATIO 4.1 (0.00-4.99); CHOLESTEROL 243 MG/DL (0-200); CREATININE 1.16 MG/DL (0.40-0.90); GLUCOSE 115 MG/DL (70-104); HDL CHOLESTEROL 59 MG/DL (35-60); LDL CHOLESTEROL 142 MG/DL (50-100); MAGNESIUM 1.7 MG/DL (1.5-2.4); POTASSIUM 3.7 MMOL/L (3.5-5.1); SODIUM 135 MMOL/L (135-145); TOTAL CARBON DIOXIDE 27.2 MMOL/L (24-32); TOTAL PROTEIN 6.3 G/DL (6.4-8.2); TRIGLYCERIDES 183 MG/DL (20-135); eCRCL 47 ML/MIN; eGFR 48 ML/MIN
[2024-07-25] MEDS: acetaminophen 325mg tablet PO PRN (05:58)
[2024-07-25 06:00] VITALS: BP 122/87; PULSE 91; RESP 19; TEMP 97.9; O2SAT 100
[2024-07-25] MEDS: CefTRIAXone/D5W-Rocephin 1gm 50 ML IV SCH (08:58)
[2024-07-25 08:59] VITALS: RESP 18; O2SAT 100
[2024-07-25] MEDS: pantoprazole 40 MG vial IV SCH (08:59)
[2024-07-25 10:00] VITALS: BP 116/73; PULSE 60; RESP 19; TEMP 97.5; O2SAT 97
== END 2024-07-25 13:35 | disposition left against medical advice (07) | DRG 315 ==
LOC: ER 15:15 → ED HOLD 19:27 → UNDOADMIN 19:27 → ED HOLD 19:59 → EDBEDREQ 20:43 → ORTHO 4S 21:16 → ED HOLD 21:16 → UNDODISIN 07-25 13:35
PROVIDERS: ADMIT Internal Medicine Critical Care Medicine; ATTEND Internal Medicine
DX: I95.9 Hypotension, unspecified (principal); N17.9 Acute kidney failure, unspecified; N39.0 Urinary tract infection, site not specified; E86.0 Dehydration; K21.9 Gastro-esophageal reflux disease without esophagitis; F31.9 Bipolar disorder, unspecified; Z53.21 Procedure and treatment not carried out due to patient leaving prior to being seen by health care provider; Z85.3 Personal history of malignant neoplasm of breast; Z88.0 Allergy status to penicillin; Z79.899 Other long term (current) drug therapy
CPT/HCPCS: 36415; 71045; 80048; 80053; 80061; 80076; 80178; 80305; 80320; 81001; 82272; 82607; 83036; 83605; 83735; 83880; 84145; 84443; 85025; 87040; 87081; 87088; 93005; 96361; 96365; 96375; 99285; G0378; J0696; J2270; J2405; J2470; J7030; J7120

== ENCOUNTER 2024-08-12 02:54 | Inpatient (IN) | payer MEDICARE, MEDICAID ==
[~2024-08-12] VITALS: Ht 172.7 cm; Wt 54.0 kg
[~2024-08-12 02:54] MED LIST changes: -ROPI0.5T37 PO
[2024-08-12 03:27] LABS: BASOPHILS % (AUTO) 0.5 % (0-1); EOSINOPHILS % (AUTO) 0.6 % (0-6); HEMOGLOBIN 13.3 g/dl (12.0-16.0); LYMPHOCYTES # (AUTO) 0.9 X10'3 (1.1-4.8); LYMPHOCYTES % (AUTO) 15.3 % (21-51); MEAN CORPUSCULAR HEMOGLOBIN 37.2 PG (27.0-31.0); MEAN CORPUSCULAR HGB CONC 34.1 g/dL (33.0-36.5); MEAN CORPUSCULAR VOLUME 109.1 FL (78-98); MEAN PLATELET VOLUME 6.8 FL (7.4-10.4); MONOCYTES # (AUTO) 0.3 X10'3 (0-0.9); MONOCYTES % (AUTO) 4.3 % (2-12); NEUTROPHILS # (AUTO) 4.6 X10'3 (1.8-7.7); NEUTROPHILS % (AUTO) 79.3 % (42-75); PLATELET COUNT 262 X10'3 (140-440); RED BLOOD COUNT 3.57 X10'6 (4.20-5.60); RED CELL DISTRIBUTION WIDTH 13.6 % (11.5-14.5); WHITE BLOOD COUNT 5.8 X10'3 (4.5-11.0)
[2024-08-12] MEDS: ondansetron/PF 4mg/2ml inj IV ONE (03:41)
[2024-08-12] MEDS: normal saline 1000ml 1,000 ML IV ONE (03:45)
[2024-08-12 03:49] LABS: ALBUMIN 3.4 G/DL (3.4-5.0); ANION GAP 11 (8-16); BLOOD UREA NITROGEN 21 MG/DL (7-18); BUN/CREATININE RATIO 12.7 (10.0-20.0); CALCIUM 9.2 MG/DL (8.5-10.1); CHLORIDE 88 MMOL/L (99-107); CREATININE 1.66 MG/DL (0.40-0.90); GLUCOSE 273 MG/DL (70-104); SODIUM 129 MMOL/L (135-145); THYROID STIMULATING HORMONE 0.48 ulU/ml (0.34-4.50); TOTAL CARBON DIOXIDE 29.6 MMOL/L (24-32); eGFR 32 ML/MIN
[2024-08-12 03:52] LABS: ETHANOL < 10 MG/DL (<10); POTASSIUM 2.2 MMOL/L (3.5-5.1)
[2024-08-12] MEDS: potassium Cl 20 mEq SR tablet PO STA (03:56)
[2024-08-12] MEDS: midazolam 1 mg/ML 2ml injection IV ONE (04:20)
[2024-08-12 04:25] LABS: MAGNESIUM 2.1 MG/DL (1.5-2.4)
[2024-08-12] MEDS ORDERED: acetaminophen 325mg tablet PO PRN (04:45)
[2024-08-12] MEDS ORDERED: potassium Cl 20 mEq SR tablet PO PRN (04:45)
[2024-08-12] MEDS ORDERED: magnesium sulf-water 2g/50mL 50 ML IV PRN (04:45)
[2024-08-12] MEDS ORDERED: potassium Cl 40MEQ/1/2NS 520ml 520 ML IV PRN (04:45)
[2024-08-12] MEDS ORDERED: magnesium sulf-water 4G/100mL 100 ML IV PRN (04:45)
[2024-08-12] MEDS ORDERED: magnesium Cl slow-release 64mg tablet PO PRN (04:45)
[2024-08-12] MEDS: potassium Cl 40MEQ/1/2NS 520ml 520 ML IV SCH (05:00)
[2024-08-12] MEDS: magnesium sulf-water 2g/50mL 50 ML IV ONE (05:02)
[2024-08-12] MEDS ORDERED: potassium Cl 20mEq/100mL bag 100 ML IV ONE (05:10)
[2024-08-12] MEDS: metoclopramide 5 mg/ml inj IV PRN (05:53)
[2024-08-12] MEDS: normal saline 1000ml 1,000 ML IV SCH (06:17)
[2024-08-12 07:41] LABS: CHOL/HDL RATIO 3.3 (0.00-4.99); CHOLESTEROL 240 MG/DL (0-200); HDL CHOLESTEROL 73 MG/DL (35-60); LDL CHOLESTEROL 136 MG/DL (50-100); TRIGLYCERIDES 143 MG/DL (20-135)
[2024-08-12 07:49] LABS: OSMOLALITY 268 MOSM/K (280-300)
[2024-08-12] MEDS: docusate sod 100mg capsule PO SCH (08:00)
[2024-08-12] MEDS: heparin, porcine 5000 units/ml vial SQ SCH (08:00)
[2024-08-12] MEDS: K and/or MAG REPLACEMENT MC SCH (08:00)
[2024-08-12 08:12] LABS: HEMOGLOBIN A1C 5.4 % (4.5-6.2)
[2024-08-12 09:49] LABS: BILIRUBIN,URINE NEGATIVE (Neg); CLARITY,URINE SLIGHTLY CLOUDY (Clear); COLOR,URINE YELLOW (Yellow); GLUCOSE, URINE NEGATIVE (Neg); KETONES,URINE NEGATIVE (Neg); LEUKOCYTE ESTERASE ,URINE TRACE (Neg); NITRITES, URINE NEGATIVE (Neg); OCCULT BLOOD,URINE TRACE-INTACT (Neg); PROTEIN,URINE 30 mg/dl (Neg); UROBILINOGEN,URINE 0.2 E.U/dL (0.2-1.0)
[2024-08-12 09:51] LABS: URINE AMPHETAMINE SCREEN NEGATIVE (Neg); URINE BARBITUATE SCREEN NEGATIVE (Neg); URINE BENZODIAZEPINES SCREEN NEGATIVE (Neg); URINE CANNABINOID SCREEN POSITIVE (Neg); URINE COCAINE SCREEN NEGATIVE (Neg); URINE METHADONE SCREEN NEGATIVE (Neg); URINE OPIATE SCREEN NEGATIVE (Neg); URINE PHENCYCLIDINE SCREEN NEGATIVE (Neg)
[2024-08-12 09:57] LABS: UA COLLECTION TYPE NON-SPECIFIED
[2024-08-12 10:02] LABS: BACTERIA,URINE FEW /HPF (Neg); SQUAMOUS EPITHELIAL CELL,UR MANY /LPF (FEW); TRANSITIONAL EPI CELLS,URINE MODERATE /HPF
[2024-08-12] MEDS: ondansetron/PF 4mg/2ml inj IV PRN (10:20)
[2024-08-12 10:26] LABS: UA EOSINOPHILS NO EOS /HPF
[2024-08-12 10:50] VITALS: BP 99/71; PULSE 98; RESP 14; TEMP 98.3; O2SAT 97
[2024-08-12 16:00] VITALS: BP 109/75; PULSE 93; RESP 17; O2SAT 95
[2024-08-12 18:00] VITALS: BP 113/75; PULSE 93; RESP 18; TEMP 98.2; O2SAT 93
[2024-08-12] MEDS: magnesium hydroxide 30ml (MOM) UD suspension PO PRN (19:15)
[2024-08-12 20:00] VITALS: RESP 18; O2SAT 93
[2024-08-12 22:00] VITALS: BP 117/74; PULSE 90; RESP 20; TEMP 99.2; O2SAT 98
[2024-08-13] VITALS (7 sets, daily range): BP systolic 92–123; BP diastolic 57–85; PULSE 62–109; RESP 16–20; TEMP 97.1–98.7; O2SAT 95–99
[2024-08-13] MEDS: Melatonin 3mg tablet PO ONE (01:36)
[2024-08-13 08:02] LABS: BASOPHILS % (AUTO) 0.4 % (0-1); EOSINOPHILS % (AUTO) 0.3 % (0-6); HEMATOCRIT 33.3 % (35.0-45.0); HEMOGLOBIN 11.5 g/dl (12.0-16.0); LYMPHOCYTES # (AUTO) 0.9 X10'3 (1.1-4.8); LYMPHOCYTES % (AUTO) 15.9 % (21-51); MEAN CORPUSCULAR HEMOGLOBIN 37.9 PG (27.0-31.0); MEAN CORPUSCULAR HGB CONC 34.6 g/dL (33.0-36.5); MEAN CORPUSCULAR VOLUME 109.6 FL (78-98); MEAN PLATELET VOLUME 7.3 FL (7.4-10.4); MONOCYTES # (AUTO) 0.4 X10'3 (0-0.9); MONOCYTES % (AUTO) 7.6 % (2-12); NEUTROPHILS # (AUTO) 4.4 X10'3 (1.8-7.7); NEUTROPHILS % (AUTO) 75.8 % (42-75); PLATELET COUNT 226 X10'3 (140-440); RED BLOOD COUNT 3.04 X10'6 (4.20-5.60); RED CELL DISTRIBUTION WIDTH 13.6 % (11.5-14.5); WHITE BLOOD COUNT 5.8 X10'3 (4.5-11.0)
[2024-08-13 08:12] LABS: ALANINE AMINOTRANSFERASE 14 U/L (12-78); ALBUMIN 2.9 G/DL (3.4-5.0); ALBUMIN/GLOBULIN RATIO 0.9 (1.1-1.5); ALKALINE PHOSPHATASE 56 IU/L (46-116); ANION GAP 6 (8-16); ASPARTATE AMINO TRANSFERASE 61 U/L (10-37); BILIRUBIN,TOTAL 0.3 MG/DL (0.1-1.0); BLOOD UREA NITROGEN 8 MG/DL (7-18); BUN/CREATININE RATIO 8.8 (10.0-20.0); CALCIUM 8.5 MG/DL (8.5-10.1); CHLORIDE 98 MMOL/L (99-107); CREATININE 0.91 MG/DL (0.40-0.90); GLUCOSE 141 MG/DL (70-104); POTASSIUM 3.4 MMOL/L (3.5-5.1); SODIUM 133 MMOL/L (135-145); TOTAL CARBON DIOXIDE 29.1 MMOL/L (24-32); TOTAL PROTEIN 6.2 G/DL (6.4-8.2); eCRCL 59 ML/MIN; eGFR 64 ML/MIN
[2024-08-13] MEDS: potassium Cl 20 mEq SR tablet PO PRN (08:42)
[2024-08-13] MEDS ORDERED: GABA-1405 PO (16:19)
[2024-08-13] MEDS ORDERED: VALB80CA PO (16:19)
[2024-08-13] MEDS: sertraline 50mg tablet PO SCH (20:30)
[2024-08-13] MEDS: gabapentin 300mg capsule PO SCH (20:31)
[2024-08-13] MEDS: olanzapine 10mg tablet PO SCH (20:32)
[2024-08-14 06:27] LABS: BASOPHILS % (AUTO) 0.4 % (0-1); HEMATOCRIT 35.3 % (35.0-45.0); LYMPHOCYTES % (AUTO) 19.5 % (21-51); MEAN CORPUSCULAR HEMOGLOBIN 37.2 PG (27.0-31.0); MEAN CORPUSCULAR VOLUME 109.2 FL (78-98); MEAN PLATELET VOLUME 6.9 FL (7.4-10.4); MONOCYTES # (AUTO) 0.5 X10'3 (0-0.9); MONOCYTES % (AUTO) 10.3 % (2-12); NEUTROPHILS # (AUTO) 3.4 X10'3 (1.8-7.7); NEUTROPHILS % (AUTO) 68.8 % (42-75); PLATELET COUNT 212 X10'3 (140-440); RED BLOOD COUNT 3.23 X10'6 (4.20-5.60); RED CELL DISTRIBUTION WIDTH 13.8 % (11.5-14.5)
[2024-08-14 06:45] LABS: ALANINE AMINOTRANSFERASE 18 U/L (12-78); ALBUMIN 2.8 G/DL (3.4-5.0); ALBUMIN/GLOBULIN RATIO 0.8 (1.1-1.5); ALKALINE PHOSPHATASE 57 IU/L (46-116); ANION GAP 3 (8-16); ASPARTATE AMINO TRANSFERASE 49 U/L (10-37); BILIRUBIN,TOTAL 0.4 MG/DL (0.1-1.0); BLOOD UREA NITROGEN 8 MG/DL (7-18); CHLORIDE 103 MMOL/L (99-107); GLUCOSE 90 MG/DL (70-104); POTASSIUM 4.9 MMOL/L (3.5-5.1); SODIUM 137 MMOL/L (135-145); TOTAL CARBON DIOXIDE 31.3 MMOL/L (24-32); TOTAL PROTEIN 6.5 G/DL (6.4-8.2); eCRCL 54 ML/MIN; eGFR 57 ML/MIN
[2024-08-14] MEDS: aripiprazole 5mg tablet PO SCH (08:08)
[2024-08-14 08:45] VITALS: RESP 14; O2SAT 98
[2024-08-14] MEDS: ondansetron 4mg rapidly disintigrating tab PO PRN (10:11)
[2024-08-14] MEDS: mag hydrox/Alum hydrox/simeth 30ml oral suspension PO PRN (15:08)
[2024-08-14 15:59] VITALS: BP 96/58; PULSE 96; RESP 13; TEMP 97.8; O2SAT 98
== END 2024-08-14 19:03 | DRG 640 ==
LOC: ER 02:55 → ED HOLD 05:06 → PCU 3S 10:38
PROVIDERS: ADMIT Internal Medicine Critical Care Medicine; ATTEND Internal Medicine
DX: E87.6 Hypokalemia (principal); G93.41 Metabolic encephalopathy; N17.9 Acute kidney failure, unspecified; N39.0 Urinary tract infection, site not specified; E44.0 Moderate protein-calorie malnutrition; Z68.1 Body mass index [BMI] 19.9 or less, adult; Z20.822 Contact with and (suspected) exposure to COVID-19; E87.8 Other disorders of electrolyte and fluid balance, not elsewhere classified; E11.65 Type 2 diabetes mellitus with hyperglycemia; K59.00 Constipation, unspecified; E87.1 Hypo-osmolality and hyponatremia; E87.3 Alkalosis; F25.0 Schizoaffective disorder, bipolar type; F17.210 Nicotine dependence, cigarettes, uncomplicated; Z88.0 Allergy status to penicillin; Z79.899 Other long term (current) drug therapy; Z85.118 Personal history of other malignant neoplasm of bronchus and lung
CPT/HCPCS: 36415; 80048; 80053; 80061; 80305; 80320; 81001; 82570; 83036; 83735; 83930; 83935; 84132; 84300; 84443; 85025; 87081; 87207; 87811; 93005; 96361; 96365; 96375; 99285; A6250; G0378; J1644; J2405; J2765; J3480; J7030

== ENCOUNTER 2024-08-14 17:45 | Inpatient (IN) | payer MEDICARE, MEDICAID ==
[~2024-08-14] VITALS: Ht 167.6 cm; Wt 53.2 kg
[~2024-08-14 17:45] MED LIST changes: +GABA-1405 PO; -VALB40CA2 PO; +VALB80CA PO
[2024-08-14] MEDS ORDERED: loperamide 2mg capsule PO PRN (20:35)
[2024-08-14] MEDS ORDERED: chlorproMAZINE 25mg tablet PO PRN (20:35)
[2024-08-14] MEDS ORDERED: diphenhydrAMINE 25mg capsule PO PRN (20:35)
[2024-08-14] MEDS: ondansetron 4mg rapidly disintigrating tab PO PRN (22:42)
[2024-08-14] MEDS: magnesium citrate 296ml oral solution PO ONE (22:43)
[2024-08-14] MEDS: sertraline 50mg tablet PO SCH (22:43)
[2024-08-14] MEDS: gabapentin 300mg capsule PO SCH (22:43)
[2024-08-14] MEDS: OLANZapine 5mg rapidly disint. tablet PO SCH (22:44)
[2024-08-14 22:55] VITALS: RESP 18; O2SAT 99
[2024-08-15 07:30] VITALS: BP 90/63; PULSE 102; RESP 18; TEMP 97.5; O2SAT 96
[2024-08-15 07:55] LABS: CHOL/HDL RATIO 3.1 (0.00-4.99); CHOLESTEROL 214 MG/DL (0-200); HDL CHOLESTEROL 68 MG/DL (35-60); LDL CHOLESTEROL 112 MG/DL (50-100); TRIGLYCERIDES 131 MG/DL (20-135)
[2024-08-15] MEDS: nicotine 21mg patch - 24 hr TD SCH (08:00)
[2024-08-15] MEDS: aripiprazole 5mg tablet PO SCH (08:00)
[2024-08-15 08:21] LABS: HEMOGLOBIN A1C 5.4 % (4.5-6.2)
--- NOTE | 2024-08-15 12:41 | HISTORY AND PHYSICAL ---
History & Physical - Blank History and Physical CHIEF COMPLAINT GRAVELY DISABILITY HISTORY OF PRESENT ILLNESS Kia's mental health has decompensated. She has been neglecting her ADLs and due to her disorganization and preoccupation, she is unable to execute plans to meet her needs inappropriately utilize her resources. CHART REVIEW Kia is a 55-year-old female on the medical floor of [facility] referred for a mental health evaluation. Toxicology report positive for THC. Kia is an active client of [facility]. Per [place] clinician, client has been decompensating over the past three months. Reporting that she had not been letting them into her home, most recent visitation clinician discovered home to be an unlivable declined. She stated that the client although reporting she has been eating and has food in her home, this information is boss, and client's physical well-being and weight loss is evident, and evidence verify and there is no food in the home. Client lives on her own in his uncertain if she has been able to maintain a medication regiment. ASSESSMENT The patient is interviewed in observation room. Patient seen actively sitting in rec room. The patient endorses "I need to throw-up." Patient endorses "my stomach is upset it has been upset for about a month I just came from the hospital." The patient endorses "I like the new medications that I get." Patient endorses she was brought to [facility] for a checkup to see how she was doing. "I have multiple diagnosis they all change." The patient was preoccupied about not being able to clean her home and not having a BM for 2 weeks. Despite documentation that she had a BM on 08/15/2024. Denies SI. Denies HI. Denies AVH. The patient is stable no acute distress noted. The patient is hyperverble, irritable, disorganized, and engaged during session. Per staff report no behavior issues. Per staff report patient is compliant with medication regimen. Will continue daily assessment and adjusting treatment as needed. Closely monitor behavior and response to medication during hospitalization. Discussed treatment plan with patient. ASE/risks and benefits of chosen treatment. He verbalized understanding and consented to treatment. REVIEW OF LABS WBC 5.8 RBC 3.57 HEMOGLOBIN 13.3 HEMATOCRIT 39.0 PLATELET COUNT 262 SODIUM 129 POTASSIUM 3.6 ANION GAP11 BUN 21 CREATININE 1.66 HEMOGLOBIN A1C 5.4 CALCIUM 9.2 LITHIUM 2.1 ALBUMIN 3.4 TRIGLYCERIDES 143 CHOLESTEROL 240 LDL 136 HDL 73 TSH 0.48 URINE DRUG SCREEN POSITIVE FOR CANNABIS URINE ANALYSIS NEGATIVE MENTAL STATUS EXAM APPEARANCE: DISHEVELED. AVERAGE HEIGHT THIN FEMALE. WEARING GREEN SCRUBS. BLONDE GRAYING HAIR PULLED BACK IN A PONYTAIL SPEECH: HYPERVERABLE, CIRCUMSTANTIAL, TANGENTIAL EYE CONTACT: NORMAL AFFECT: CONGRUENT WITH MOOD MOOD: IRRITABLE ORIENTATION IMPAIRMENT: NONE MEMORY IMPAIRMENT: NONE ATTENTION: DISTRACTED HALLUCINATIONS: NONE SUICIDALITY: NONE DELUSIONS: PREOCCUPATION BEHAVIOR: AGITATED JUDGMENT: POOR INSIGHT: POOR TREATMENT GABAPENTIN 600 MG P.O. Q.H.S. ABILIFY 5 MG P.O. DAILY Increase ZOLOFT 75 MG P.O. Q.H.S. Increase OLANZAPINE 15 MG P.O. Q.H.S. Monitoring by Staff, Milieu, Group, and Individual counseling as needed -- According to the [place] Suicide Assessment the above named patient is on Q 15 MINUTE CHECKS. [id number]-Patient is unable to formulate a plan to safely meet their basic needs of food, clothing, and chcf due to the severity of their mental illness. We are still titrating medications to an effective dose while maintaining a therapeutic environment to prevent decompensation and readmission. REVIEW OF Clinical notes [X ] RN notes [X] PCT documentation [X] SW notes Labs [ X] Medications [X] Care trends/care activity [X] Vitals [X] DISCUSSION WITH er physician [X] Staff SW [X] Treatment Team [X] DISCHARGE UNSURE AT THIS TIME. DISCHARGE HOME ONCE STABLE. Past Psychiatric History Past Psychiatric History MULTIPLE PSYCHIATRIC HOSPITALIZATION DIAGNOSIS SCHIZOAFFECTIVE DISORDER BIPOLAR TYPE-1985 Past Medical History Past Medical History SEE MEDICAL H & P Past Surgical History Past Surgical History DENIES ANY SURGICAL HISTORY Past Family History Patient History: Patient reports no known family medical history. Substance Abuse History Substance Abuse History [id number] TIMES PER WEEK TOBACCO- DAILY ALCOHOL-OCCASIONALLY ILLICIT DRUGS-DENIES Personal History Current Living Situation APARTMENT IN [place] Marital & Relationship History . ONE CHILD-BOY. 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
--- NOTE | 2024-08-15 14:34 | RADIOLOGY REPORT ---
EXAM: DI ABDOMEN,SINGLE VIEW(KUB) HISTORY: pt. reports no bm for 2 weeks COMPARISON: None TECHNIQUE: Single AP of the abdomen and pelvis was obtained. Findings: Frontal view of the abdomen demonstrates a nonobstructive bowel gas pattern. Moderate descending and rectosigmoid colon fecal burden. No visualized renal calculi. There is no evidence of an acute fractu re, dislocation, blastic, or lytic lesions. The visualized portions of the lung bases are unremarkable. No radiopaque foreign bodies. No superficial soft tissue abnormalities. Impression: 1. Nonobstructive bowel gas pattern. 2. Moderate descending and rectosigmoid colon fecal burden.
[2024-08-15 19:00] VITALS: RESP 20; O2SAT 99
[2024-08-15 20:00] VITALS: BP 112/80; PULSE 98; RESP 20; TEMP 98.9; O2SAT 99
[2024-08-16 08:00] VITALS: BP 98/66; PULSE 62; RESP 18; TEMP 97.6; O2SAT 94
[2024-08-16] MEDS ORDERED: proCHLORperazine 10mg tablet PO PRN (10:00)
[2024-08-16] MEDS: psyllium seed 5.8 gm packet (sugar-free) PO ONE (10:27)
[2024-08-16] MEDS: bisacodyl 10mg suppository rectal RC STA (10:27)
[2024-08-16] MEDS: proCHLORperazine 10 MG/2 ml inj IM ONE (10:40)
--- NOTE | 2024-08-16 12:39 | PROGRESS NOTE ---
Progress Note Dictate Providers to CC ~ Central Line/PICC still needed: N\\A Antibiotic Ordered?: No MRSA Education MRSA Education Provided to pt: No Objective Vitals Vital Signs Date Time Temp Pulse Resp B/P (MAP) Pulse Ox O2 Delivery O2 Flow Rate FiO2 08/16/24 08:00 97.6 62 18 98/66 (77) 94 Room Air Counseling Services Smoking & Tobacco Cessation: > 10 Minutes Problem\\Assessment\\Plan Problems/Diagnosis: (1) Schizoaffective disorder, bipolar type (2) Gravely disabled Psychiatrist's Progress Note Date of Service: Aug 16, 2024 Notes CHART REVIEW Kia is a 55-year-old female on the medical floor of [facility] referred for a mental health evaluation. Toxicology report positive for THC. Kia is an active client of [facility]. Per [place] clinician, client has been decompensating over the past three months. Reporting that she had not been letting them into her home, most recent visitation clinician discovered home to be an unlivable declined. She stated that the client although reporting she has been eating and has food in her home, this information is boss, and client's physical well-being and weight loss is evident, and evidence verify and there is no food in the home. Client lives on her own in his uncertain if she has been able to maintain a medication regiment. ASSESSMENT The patient is interviewed in observation room. Patient seen actively resting in bed with eyes open. The patient endorses "Good." The patient endorses the medicine is working great, I like that." "I am being treated for constipation."Patient endorses "I think the gabapentin is making me sick."Keith mathew endorses "I am a little depressed I keep trying to cry and I can not cry." "I want to cry about everything." Denies SI. Denies HI. Denies AVH. Patient endorses adequate sleep and food intake.. The patient is stable no acute distress noted. The patient is less irritable,less disorganized, depressed, and engaged during session. Patient is still preoccupied with being constipated. Per staff report no behavior issues. Per staff report patient is compliant with medication regimen. Will continue daily assessment and adjusting treatment as needed. Closely monitor behavior and response to medication during hospitalization. Results Of any Diagn. Testing REVIEW OF LABS WBC 5.8 RBC 3.57 HEMOGLOBIN 13.3 HEMATOCRIT 39.0 PLATELET COUNT 262 SODIUM 129 POTASSIUM 3.6 ANION GAP11 BUN 21 CREATININE 1.66 HEMOGLOBIN A1C 5.4 CALCIUM 9.2 LITHIUM 2.1 ALBUMIN 3.4 TRIGLYCERIDES 143 CHOLESTEROL 240 LDL 136 HDL 73 TSH 0.48 URINE DRUG SCREEN POSITIVE FOR CANNABIS URINE ANALYSIS NEGATIVE Appearnace: Other (DISHEVELED. AVERAGE HEIGHT THIN FEMALE. WEARING GREEN SCRUBS. BLONDE GRAYING HAIR PULLED BACK IN A PONY TAIL) Speech: Tangential, Other (CIRCUMSTANTIAL) Eye Contact: Other (INTERMITTENT) Motor Activity: Normal Affect: Labile Mood: Depressed Orientation Impairment: None Memory Impairment: None Attention: Normal Hallucinations: None Other: None Suicidality: None Homicidality: None Delusions: Other (PREOCCUPIED WITH HAVING A BM) Behavior: Cooperative Insight: Poor Judgment: Poor Treatment Decrease GABAPENTIN 300 MG P.O. Q.H.S. ABILIFY 5 MG P.O. DAILY ZOLOFT 75 MG P.O. Q.H.S. INCREASE OLANZAPINE 20 MG P.O. Q.H.S. Monitoring by Staff, Milieu, Group, and Individual counseling as needed -- According to the [place] Suicide Assessment the above named patient is on Q 15 MINUTE CHECKS. [id number]-Patient is unable to formulate a plan to safely meet their basic needs of food, clothing, and [place] [facility] due to the severity of their mental illness. We are still titrating medications to an effective dose while maintaining a therapeutic environment to prevent decompensation and readmission. REVIEW OF Clinical notes [X ] RN notes [X] PCT documentation [X] SW notes Labs [ X] Medications [X] Care trends/care activity [X] Vitals [X] DISCUSSION WITH patient access specialist [X] Staff SW [X] Treatment Team [X] Discharge UNSURE AT THIS TIME. DISCHARGE HOME ONCE STABLE. CODING VISIT-PSYCHIATRY Date of Service: Aug 16, 2024 Billing Provider: KERRIE RIZO APRN Psych Common Visit Codes: [id number] INP/OBS CARE(Mod) KERRIE RIZO APRN Aug 16, 2024 12:39
[2024-08-16] MEDS: lactulose 20gm/30ml cup PO SCH (13:58)
--- NOTE | 2024-08-16 14:49 | HISTORY AND PHYSICAL ---
History & Physical Providers to CC ~ History of Present Illness Reason for Admit\Complaint: Gravely disabled\ constipation with secondary emesis History of Present Illness This is the hospitalist history and physical exam on patients hospitalized at [facility]. The patient was transferred from a medical floor and has been hospitalized for severe hypokalemia and acute kidney injury which had resolved by the time the patient was transferred though the renal function me remains slightly low the patient was creatinine on admission has been 1.66 and on the was 1.00 the patient's potassium initially was 2.2 in his normalized and on the day of the was 4.9. The patient is on a 5150 hold due to being gravely disabled and unable to take care of herself the patient was underlining bipolar disorder. I received a page this morning on this patient as she has not had a good bowel movement in a couple of weeks though she has a small bowel movement two days ago and a KUB demonstrated moderate left-sided fecal stool burden however no signs of an bowel dilatation. I ordered Compazine IM 10 mg x 1 as well as lactulose scheduled Dulcolax suppository p.r.n.- Metamucil x1 and then nightly. The patient has no other complaints and her abdominal exam is unremarkable Allergies: Coded Allergies: Penicillins (Verified Allergy, Unknown, 07/24/24) TOLERARTING ROCEPHIN 07/2024 docusate (Verified Allergy, Unknown, 08/12/24) Home Medications Home Medications Active Reported Gabapentin 600 Mg Tablet 1 Tab PO HS 30 Days Zyprexa Zydis Odt* (Olanzapine) 5 Mg Tab.rapdis 4 Tab PO HS 30 Days Ingrezza (Valbenazine Tosylate) 80 Mg Capsule 1 Cap PO HS 30 Days Zoloft* (Sertraline HCl) 50 Mg Tablet 1 Tab PO HS Inderal* (Propranolol HCl) 10 Mg Tablet 2 Tab PO Q12H LITHIUM CARBONATE tablet ([place] Carbonate) 300 Mg Tablet.sa 0.5 Tab PO Q12H Abilify* (Aripiprazole) 5 Mg Tablet 1 Tab PO QAM Cogentin* (Benztropine Mesylate) 1 Mg Tablet 1 Tab PO Q12H Past Medical History Past Medical History Bone and lung cancer, chronic anemia, constipation, bipolar disorder Past Surgical History Surgical History Comment No prior surgeries Family History Family History: FH: heart disease Maternal grandfather FH: pancreatic cancer Maternal grandmother Past Social History Social History Comment Smokes half a pack of cigarettes a day, does not drink alcohol, smoke a couple of joints of marijuana daily, denies illicit drug use. Full code status. ROS ROS Except for positives in the HPI the rest of the 14 point review systems is negative Exam Vitals: Vital Signs Date Time Temp Pulse Resp B/P (MAP) Pulse Ox O2 Delivery O2 Flow Rate FiO2 08/16/24 08:00 18 94 Room Air 08/16/24 08:00 97.6 62 98/66 (77) General: Gen. No acute distress alert and oriented Lungs clear to ascultation bilaterally, no wheezes rales or rhonchi appreciated Heart normal sinus rhythm no murmurs rubs or clicks noted Abdomen soft nontender bowel sounds are normoactive Lower extremities no clubbing cyanosis, nor edema appreciated bilaterally Counseling Services Smoking & Tobacco Cessation: > 10 Minutes Advance Care Planning Advanced Care planning: N/A Problems: (1) Bipolar 1 disorder Status: Acute Additional Plan # bipolar disorder- on a 5149 due to being gravely disabled Psychiatry following # significant constipation with secondary nausea and vomiting Scheduled lactulose until large bowel movement Metamucil nightly and x1 Dulcolax suppositories p.r.n. constipation # Tobacco abuse-I spent 12 minutes discussing smoking cessation with the patient including the risk of continuing smoke: Lung cancer, stroke, heart attack, poor wound healing, increased in facial wrinkling, cigarette smoke also leads a foul smell on clothing and fabrics, risk of MRSA skin infections. The expense of smoking cigarettes and how cigarettes have been scientifically engineered to be as addictive as humanly possible. The patient has accepted PRN nicotine lozen ges and a 21 mg nicotine patch # daily cannabis use Unknown if this is contributing to her disability, psychiatry to tease this out. # bone and lung cancer We will need to follow up with Oncology once no longer hospitalized on a 5149 # hypokalemia With further episodes of emesis a CMP is ordered for the morning # acute kidney injury Likely secondary to dehydration due to vomiting CMP is ordered. The Hospitalist service will continue to follow the patient Date of Service: Aug 16, 2024 Billing Provider: DAWN SALCEDO DO Common Visit Codes: [id number] INP/OBS CARE (MOD) Secondary Visit Codes: [id number] CHNG SMOKING >10MIN DAWN SALCEDO DO Aug 16, 2024 14:49
[2024-08-16] MEDS: mag hydrox/Alum hydrox/simeth 30ml oral suspension PO PRN (18:36)
[2024-08-16 19:00] VITALS: RESP 14; O2SAT 96
[2024-08-16 20:00] VITALS: BP 96/69; PULSE 111; RESP 14; TEMP 98.4; O2SAT 96
[2024-08-16] MEDS: traZODone 50mg tablet PO PRN (20:38)
[2024-08-16] MEDS: psyllium seed 5.8 gm packet (sugar-free) PO SCH (20:38)
[2024-08-16] MEDS: sertraline 25mg tablet PO SCH (20:39)
[2024-08-16] MEDS: gabapentin 300mg capsule PO SCH (20:39)
[2024-08-17] MEDS: hydrOXYzine 25 MG tablet PO PRN (00:37)
[2024-08-17 07:34] VITALS: BP 108/78; PULSE 105; RESP 16; TEMP 98.3; O2SAT 96
[2024-08-17 08:00] VITALS: RESP 16; O2SAT 99
--- NOTE | 2024-08-17 09:13 | RADIOLOGY REPORT ---
Date: 08/17/2024 07:51 AM Examination: DI ABDOMEN,SINGLE VIEW(KUB) History: Constipation re-evaluate stool burden load Comparison: DI ABDOMEN,SINGLE VIEW(KUB) on DOS: 08/15/24 TECHNIQUE: Frontal views of the abdomen was obtained. FINDINGS: Moderate stool burden. The lung bases are unremarkable. Sclerotic appearance of the osseous structures. IMPRESSION: Moderate stool burden. Sclerotic appearance of the osseous structures.
[2024-08-17 11:25] LABS: ALANINE AMINOTRANSFERASE 19 U/L (12-78); ALBUMIN/GLOBULIN RATIO 0.8 (1.1-1.5); ALKALINE PHOSPHATASE 59 IU/L (46-116); ANION GAP 5 (8-16); ASPARTATE AMINO TRANSFERASE 25 U/L (10-37); BILIRUBIN,TOTAL 0.3 MG/DL (0.1-1.0); BLOOD UREA NITROGEN 11 MG/DL (7-18); BUN/CREATININE RATIO 10.4 (10.0-20.0); CALCIUM 9.3 MG/DL (8.5-10.1); CHLORIDE 94 MMOL/L (99-107); CREATININE 1.06 MG/DL (0.40-0.90); GLUCOSE 95 MG/DL (70-104); POTASSIUM 3.8 MMOL/L (3.5-5.1); SODIUM 133 MMOL/L (135-145); TOTAL CARBON DIOXIDE 34.2 MMOL/L (24-32); TOTAL PROTEIN 6.7 G/DL (6.4-8.2); eCRCL 52 ML/MIN; eGFR 54 ML/MIN
--- NOTE | 2024-08-17 12:02 | PROGRESS NOTE ---
Progress Note Dictate Providers to CC ~ Central Line/PICC still needed: N\\A Antibiotic Ordered?: No MRSA Education MRSA Education Provided to pt: No Objective Vitals Vital Signs Date Time Temp Pulse Resp B/P (MAP) Pulse Ox O2 Delivery O2 Flow Rate FiO2 08/17/24 08:00 16 99 Room Air 08/17/24 07:34 98.3 105 108/78 (88) Lab Results: 08/17/24 1040 Problem\\Assessment\\Plan Problems/Diagnosis: (1) Schizoaffective disorder, bipolar type (2) Gravely disabled Psychiatrist's Progress Note Date of Service: Aug 17, 2024 Notes CHART REVIEW Kia is a 55-year-old female on the medical floor of [facility] referred for a mental health evaluation. Toxicology report positive for THC. Kia is an active client of [facility]. Per [place] clinician, client has been decompensating over the past three months. Reporting that she had not been letting them into her home, most recent visitation clinician discovered home to be an unlivable declined. She stated that the client although reporting she has been eating and has food in her home, this information is boss, and client's physical well-being and weight loss is evident, and evidence verify and there is no food in the home. Client lives on her own in his uncertain if she has been able to maintain a medication regiment. ASSESSMENT The patient is interviewed in observation room. Patient seen actively sitting in rec room engaging with peers. The patient endorses "better." The patient endorses " I am depressed but not suicidal." Denies SI. Denies HI. Denies AVH. Patient endorses adequate sleep and food intake. The patient is stable no acute distress noted. The patient is less disorganized, depressed, and engaged during session. Per staff report no behavior issues. Per staff report patient is compliant with medication regimen. Will continue daily assessment and adjusting treatment as needed. Closely monitor behavior and response to medication during hospitalization. Results Of any Diagn. Testing REVIEW OF LABS WBC 5.8 RBC 3.57 HEMOGLOBIN 13.3 HEMATOCRIT 39.0 PLATELET COUNT 262 SODIUM 129 POTASSIUM 3.6 ANION GAP11 BUN 21 CREATININE 1.66 HEMOGLOBIN A1C 5.4 CALCIUM 9.2 LITHIUM 2.1 ALBUMIN 3.4 TRIGLYCERIDES 143 CHOLESTEROL 240 LDL 136 HDL 73 TSH 0.48 URINE DRUG SCREEN POSITIVE FOR CANNABIS URINE ANALYSIS NEGATIVE Appearnace: Disheveled (DISHEVELED. AVERAGE HEIGHT THIN FEMALE. WEARING GREEN SCRUBS. BLONDE GRAYING HAIR PULLED BACK IN A PONY TAIL) Speech: Tangential, Other (CIRCUMSTANTIAL) Eye Contact: Other Motor Activity: Normal Affect: Flat Mood: Depressed Orientation Impairment: None Memory Impairment: None Attention: Distracted Hallucinations: None Other: None Suicidality: None Homicidality: None Delusions: None Behavior: Cooperative Insight: Poor Judgment: Poor Treatment DECREASE GABAPENTIN 100 MG P.O. Q.H.S. ABILIFY 5 MG P.O. DAILY ZOLOFT 75 MG P.O. Q.H.S. OLANZAPINE 20 MG P.O. Q.H.S. Monitoring by Staff, Milieu, Group, and Individual counseling as needed -- According to the [place] Suicide Assessment the above named patient is on Q 15 MINUTE CHECKS. [id number]-Patient is unable to formulate a plan to safely meet their basic needs of food, clothing, and chcf due to the severity of their mental illness. We are still titrating medications to an effective dose while maintaining a therapeutic environment to prevent decompensation and readmission. REVIEW OF Clinical notes [X ] RN notes [X] PCT documentation [X] SW notes Labs [ X] Medications [X] Care trends/care activity [X] Vitals [X] DISCUSSION WITH directional driller [X] Staff SW [X] Treatment Team [X] Discharge UNSURE AT THIS TIME. LPS REFERRAL SENT CODING VISIT-PSYCHIATRY Date of Service: Aug 17, 2024 Billing Provider: KERRIE RIZO APRN Psych Common Visit Codes: [id number] INP/OBS CARE(Mod) KERRIE RIZO APRN Aug 17, 2024 12:02
[2024-08-17] MEDS: acetaminophen 325mg tablet PO PRN (18:38)
[2024-08-17 18:51] VITALS: RESP 16; O2SAT 97
[2024-08-17 18:57] VITALS: BP 110/75; PULSE 94; RESP 16; TEMP 98.4; O2SAT 97
[2024-08-17 19:05] VITALS: BP 110/75; PULSE 94; RESP 16; TEMP 98.4; O2SAT 97
[2024-08-17] MEDS: gabapentin 100mg capsule PO SCH (20:03)
[2024-08-17] MEDS: OLANZapine **IM** 10 mg inj. IM ONE (22:01)
[2024-08-17] MEDS: diphenhydrAMINE 50 mg/ml inj IM ONE (22:02)
[2024-08-18 07:48] VITALS: BP 106/79; PULSE 100; RESP 16; TEMP 97.9; O2SAT 99
[2024-08-18 08:00] VITALS: RESP 16; O2SAT 95
[2024-08-18] MEDS: magnesium hydroxide 30ml (MOM) UD suspension PO PRN (12:26)
--- NOTE | 2024-08-18 14:10 | PROGRESS NOTE ---
Progress Note Dictate Providers to CC ~ Antibiotic Ordered?: No MRSA Education MRSA Education Provided to pt: No Objective Vitals Vital Signs Date Time Temp Pulse Resp B/P (MAP) Pulse Ox O2 Delivery O2 Flow Rate FiO2 08/18/24 07:48 97.9 100 16 106/79 (88) 99 Room Air Lab Results: 08/17/24 1040 Counseling Services Smoking & Tobacco Cessation: > 10 Minutes Problem\\Assessment\\Plan Problems/Diagnosis: (1) Schizoaffective disorder, bipolar type (2) Gravely disabled Psychiatrist's Progress Note Date of Service: Aug 18, 2024 Notes CHART REVIEW Kia is a 55-year-old female on the medical floor of [facility] referred for a mental health evaluation. Toxicology report positive for THC. Kia is an active client of [facility]. Per [place] clinician, client has been decompensating over the past three months. Reporting that she had not been letting them into her home, most recent visitation clinician discovered home to be an unlivable declined. She stated that the client although reporting she has been eating and has food in her home, this information is boss, and client's physical well-being and weight loss is evident, and evidence verify and there is no food in the home. Client lives on her own in his uncertain if she has been able to maintain a medication regiment. ASSESSMENT The patient is interviewed in observation room. Patient seen actively sitting in rec room engaging with peers. The patient endorses "Okay." Patient endorses "I feel lighted hearted.' "That means I feel positive but I am still a little depressed." "I am not suicidal now; but if I go home I will get sick again." Denies SI. Denies HI. Denies AVH. Patient endorses adequate sleep and food intake. The patient is stable no acute distress noted. The patient is depressed, cooperative, and engaged during session. Per staff report no behavior issues. Per staff report patient is compliant with medication regimen. Will continue daily assessment and adjusting treatment as needed. Closely monitor behavior and response to medication during hospitalization. Results Of any Diagn. Testing REVIEW OF LABS WBC 5.8 RBC 3.57 HEMOGLOBIN 13.3 HEMATOCRIT 39.0 PLATELET COUNT 262 SODIUM 129 POTASSIUM 3.6 ANION GAP11 BUN 21 CREATININE 1.66 HEMOGLOBIN A1C 5.4 CALCIUM 9.2 LITHIUM 2.1 ALBUMIN 3.4 TRIGLYCERIDES 143 CHOLESTEROL 240 LDL 136 HDL 73 TSH 0.48 URINE DRUG SCREEN POSITIVE FOR CANNABIS URINE ANALYSIS NEGATIVE Appearnace: Disheveled (DISHEVELED. AVERAGE HEIGHT THIN FEMALE. WEARING GREEN SCRUBS. BLONDE GRAYING HAIR PULLED BACK IN A PONY TAIL) Speech: Other (CIRCUMSTANTIAL) Eye Contact: Other (INTERMITTENT) Motor Activity: Normal Affect: Constricted Mood: Depressed Orientation Impairment: None Memory Impairment: None Attention: Normal Hallucinations: None Other: None Suicidality: None Homicidality: None Delusions: None Behavior: Cooperative Insight: Poor Judgment: Poor Treatment Discontinue GABAPENTIN 100 MG P.O. Q.H.S. ABILIFY 5 MG P.O. DAILY ZOLOFT 75 MG P.O. Q.H.S. OLANZAPINE 20 MG P.O. Q.H.S. Monitoring by Staff, Milieu, Group, and Individual counseling as needed -- According to the [place] Suicide Assessment the above named patient is on Q 15 MINUTE CHECKS. [id number]-Patient is unable to formulate a plan to safely meet their basic needs of food, clothing, and fpc due to the severity of their mental illness. We are still titrating medications to an effective dose while maintaining a therapeutic environment to prevent decompensation and readmission. REVIEW OF Clinical notes [X ] RN notes [X] PCT documentation [X] SW notes Labs [ X] Medications [X] Care trends/care activity [X] Vitals [X] DISCUSSION WITH junior software engineer [X] Staff SW [X] Treatment Team [X] Discharge UNSURE AT THIS TIME. LPS REFERRAL SENT CODING VISIT-PSYCHIATRY Date of Service: Aug 18, 2024 Billing Provider: KERRIE RIZO APRN Psych Common Visit Codes: [id number] INP/OBS CARE(Mod) KERRIE RIZO APRN Aug 18, 2024 14:10
[2024-08-18 18:30] VITALS: RESP 16; O2SAT 96
--- NOTE | 2024-08-18 19:03 | PROGRESS NOTE ---
Daily Progress Note Providers to CC ~ Antibiotic Timeout Antibiotic Ordered?: No Subjective This is the hospitalist progress note on patients hospitalized at [facility] The patient's RN informed me that the patient has been vomiting intermittently though she has been eating her meals and when I enter the room the emesis basin had least 200 cc of gastric contents present. 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 Objective Vital Signs Date Time Temp Pulse Resp B/P (MAP) Pulse Ox O2 Delivery O2 Flow Rate FiO2 08/18/24 18:30 16 96 Room Air 08/18/24 07:48 97.9 100 106/79 (88) Result Diagram: 08/17/24 1040 Gen. No acute distress alert and oriented Lungs clear to ascultation bilaterally, no wheezes rales or rhonchi appreciated Heart normal sinus rhythm no murmurs rubs or clicks noted Abdomen soft nontender bowel sounds are normoactive Lower extremities no clubbing cyanosis, nor edema appreciated bilaterally Problem\Assessment\Plan Problems/Diagnosis: (1) Bipolar 1 disorder # bipolar disorder- on a 5149 due to being gravely disabled Psychiatry following # significant constipation with secondary nausea and vomiting Scheduled lactulose until large bowel movement Metamucil nightly and x1 Dulcolax suppositories p.r.n. constipation # Tobacco abuse-I spent 12 minutes discussing smoking cessation with the patient including the risk of continuing smoke: Lung cancer, stroke, heart attack, poor wound healing, increased in facial wrinkling, cigarette smoke also leads a foul smell on clothing and fabrics, risk of MRSA skin infections. The expense of smoking cigarettes and how cigarettes have been scientifically engineered to be as addictive as humanly possible. The patient has accepted PRN nicotine lozenges and a 21 mg nicotine patch # daily cannabis use Unknown if this is contributing to her disability, psychiatry to tease this out. # bone and lung cancer We will need to follow up with Oncology once no longer hospitalized on a 515 # hypokalemia With further episodes of emesis a CMP is ordered for the morning # acute kidney injury Likely secondary to dehydration due to vomiting Significantly improved # gastritis- Maalox as ordered P.r.n. Zofran and p.r.n. Compazine Due to the patient's history of breast cancer with metastasis to the bone I have ordered a CT scan of the abdomen and pelvis with overnight oral contrast prep and IV contrast The Hospitalist service will continue to follow the patient Date of Service: Aug 18, 2024 Billing Provider: DAWN SALCEDO DO Common Visit Codes: [id number] INP/OBS CARE(HIGH) DAWN SALCEDO DO Aug 18, 2024 19:03
[2024-08-18 19:29] VITALS: PULSE 65; RESP 16; TEMP 98.6; O2SAT 100
[2024-08-18] MEDS: proCHLORperazine 10mg tablet PO PRN (20:44)
[2024-08-18] MEDS: diatr meglu/diatrizoate 30ml oral sol.-(3 dose) bottle PO SCH (20:44)
[2024-08-19 07:20] VITALS: BP 114/85; PULSE 119; RESP 14; TEMP 97.7; O2SAT 96
[2024-08-19 07:55] VITALS: RESP 16; O2SAT 94
[2024-08-19] MEDS ORDERED: iohexol 300mg/ml 100ml inj. ONE (08:21)
--- NOTE | 2024-08-19 11:44 | RADIOLOGY REPORT ---
Exam: CT CT ABDOMEN PELVIS W/ IV ORAL CONTRAST History: Intermittent nausea and vomiting, HX of Lung and bone ca TECHNIQUE: Multiple contiguous axial CT images of the abdomen and pelvis were obtained with intraveno us contrast. The images were reformatted to generate coronal and sagittal reconstructions. 100 cc of Omnipaque 300 contrast was injected intravenously. All CT scans at this medical facility are performed using dose modulation techniques as appropriate t o a performed exam including the following:Automated exposure control was utilized; adjustment of the MA and/or KV according to patient size; and use of iterative reconstruction technique. Radiation Dose Information: CT Dose: CTDI volume is 7 mGy. Dose-length product is 327 mGy*cm Comparison: None FINDINGS: There is a 4.8 x 8.5 x 7.6 cm irregular heterogeneous mass with peripheral enhancement and central hy podense area along the body of the pancreas. There is no significant peripancreatic fluid collection. There is fatty infiltration of the liver. The gallbladder is not seen in is likely surgically absent. There is a 1.1 cm hypodense left adrenal gland nodule probably an adenoma. The kidneys, and spleen appear within normal limits. There is no free fluid or free air. The stomach grossly appears unremarkable. The small and large bowel loops demonstrate normal caliber and distribution. There is moderate amount of stool in the colon. A normal appearing appendix is see n in the right lower quadrant abdomen. The abdominal aorta and IVC appear within normal limits. The bladder appears within normal limits the degree of distention. Uterus appears within normal limit s. There is no evidence of a pelvic mass or lymphadenopathy. There is no free fluid collection. Lung bases are clear. The osseous structures in the pelvis and lumbar spine demonstrates diffuse heterogeneous sclerotic ch anges compatible osseous metastasis. IMPRESSION: 1. 4.8 x 8.5 x 7.6 cm irregular heterogeneous mass with central hypodense area along the body of the pancreas. This may represent primary pancreatic malignancy versus collection of matted lymph nodes. 2. Extensive heterogeneous sclerotic changes in the pelvis and lumbar spine compatible with osseous m etastasis. 3. Hepatic steatosis. 4. 1.1 cm hypodense nodule in the left adrenal gland probably an adenoma. HS:Y
--- NOTE | 2024-08-19 12:24 | PROGRESS NOTE ---
Progress Note Dictate Providers to CC ~ Central Line/PICC still needed: N\\A Antibiotic Ordered?: No MRSA Education MRSA Education Provided to pt: No Objective Vitals Vital Signs Date Time Temp Pulse Resp B/P (MAP) Pulse Ox O2 Delivery O2 Flow Rate FiO2 08/19/24 07:55 16 94 Room Air 08/19/24 07:20 97.7 119 114/85 (95) Lab Results: 08/17/24 1040 Problem\\Assessment\\Plan Problems/Diagnosis: (1) Schizoaffective disorder, bipolar type (2) Gravely disabled Psychiatrist's Progress Note Date of Service: Aug 19, 2024 Notes CHART REVIEW Kia is a 55-year-old female on the medical floor of [facility] referred for a mental health evaluation. Toxicology report positive for THC. Kia is an active client of [facility]. Per [place] clinician, client has been decompensating over the past three months. Reporting that she had not been letting them into her home, most recent visitation clinician discovered home to be an unlivable declined. She stated that the client although reporting she has been eating and has food in her home, this information is boss, and client's physical well-being and weight loss is evident, and evidence verify and there is no food in the home. Client lives on her own in his uncertain if she has been able to maintain a medication regiment. ASSESSMENT The patient is interviewed in observation room. Patient seen actively sitting in rec room engaging with peers. The patient endorses "alright." Patient endorses "the only way to get rid of my stomach pain is to make myself vomit." Patient endorses no worsening mental health symptoms. Denies SI. Denies HI. Denies AVH. Patient endorses adequate sleep and food intake. The patient is stable no acute distress noted. The patient is depressed, irritable, and engaged during session. Per staff report no behavior issues. Per staff report patient is compliant with medication regimen. Staff report patient noted with a self-induced vomiting. Will continue daily assessment and adjusting treatment as needed. Closely monitor behavior and response to medication during hospitalization. I spoke with Gilmar De Los Santos, [facility] team manager rn case, Gilmar report that they are unable to enter patient's home to get her Ingrezza or the medication that she takes for her cancer. Gilmar stated that they she will see if she can find some samples in the office and dropped them off at [facility]. I also spoke with [facility] and awaiting patient's oncologist to return call regarding CT abdomen results. CT abdomen results were also fax to [phone]. Results Of any Diagn. Testing REVIEW OF LABS Critical findings discussed with Renetta by Dr. Mike Blum via phone on 08/19/2024 11:54 AM. ADDENDUM # 1 Exam: CT CT ABDOMEN PELVIS W/ IV ORAL CONTRAST History: Intermittent nausea and vomiting, HX of Lung and bone ca TECHNIQUE: Multiple contiguous axial CT images of the abdomen and pelvis were obtained with intravenous contrast. The images were reformatted to generate coronal and sagittal reconstructions. 100 cc of Omnipaque 300 contrast was injected intravenously. All CT scans at this medical facility are performed using dose modulation techniques as appropriate to a performed exam including the following:Automated exposure control was utilized; adjustment of the MA and/or KV according to patient size; and use of iterative reconstruction technique. Radiation Dose Information: CT Dose: CTDI volume is 7 mGy. Dose-length product is 327 mGy*cm Comparison: None FINDINGS: There is a 4.8 x 8.5 x 7.6 cm irregular heterogeneous mass with peripheral enhancement and central hypodense area along the body of the pancreas. There is no significant peripancreatic fluid collection. There is fatty infiltration of the liver. The gallbladder is not seen in is likely surgically absent. There is a 1.1 cm hypodense left adrenal gland nodule probably an adenoma. The kidneys, and spleen appear within normal limits. There is no free fluid or free air. The stomach grossly appears unremarkable. The small and large bowel loops demonstrate normal caliber and distribution. There is moderate amount of stool in the colon. A normal appearing appendix is seen in the right lower quadrant abdomen. The abdominal aorta and IVC appear within normal limits. The bladder appears within normal limits the degree of distention. Uterus appears within normal limits. There is no evidence of a pelvic mass or lymphadenopathy. There is no free fluid collection. Lung bases are clear. The osseous structures in the pelvis and lumbar spine demonstrates diffuse heterogeneous sclerotic changes compatible osseous metastasis. IMPRESSION: 1. 4.8 x 8.5 x 7.6 cm irregular heterogeneous mass with central hypodense area along the body of the pancreas. This may represent primary pancreatic malignancy versus collection of matted lymph nodes. 2. Extensive heterogeneous sclerotic changes in the pelvis and lumbar spine compatible with osseous metastasis. 3. Hepatic steatosis. 4. 1.1 cm hypodense nodule in the left adrenal gland probably an adenoma. HS:Y ORIGINAL REPORT Exam: CT CT ABDOMEN PELVIS W/ IV ORAL CONTRAST History: Intermittent nausea and vomiting, HX of Lung and bone ca TECHNIQUE: Multiple contiguous axial CT images of the abdomen and pelvis were obtained with intravenous contrast. The images were reformatted to generate coronal and sagittal reconstructions. 100 cc of Omnipaque 300 contrast was injected intravenously. All CT scans at this medical facility are performed using dose modulation techniques as appropriate to a performed exam including the following:Automated exposure control was utilized; adjustment of the MA and/or KV according to patient size; and use of iterative reconstruction technique. Radiation Dose Information: CT Dose: CTDI volume is 7 mGy. Dose-length product is 327 mGy*cm Comparison: None FINDINGS: There is a 4.8 x 8.5 x 7.6 cm irregular heterogeneous mass with peripheral enhancement and central hypodense area along the body of the pancreas. There is no significant peripancreatic fluid collection. There is fatty infiltration of the liver. The gallbladder is not seen in is likely surgically absent. There is a 1.1 cm hypodense left adrenal gland nodule probably an adenoma. The kidneys, and spleen appear within normal limits. There is no free fluid or free air. The stomach grossly appears unremarkable. The small and large bowel loops demonstrate normal caliber and distribution. There is moderate amount of stool in the colon. A normal appearing appendix is seen in the right lower quadrant abdomen. The abdominal aorta and IVC appear within normal limits. The bladder appears within normal limits the degree of distention. Uterus appears within normal limits. There is no evidence of a pelvic mass or lymphadenopathy. There is no free fluid collection. Lung bases are clear. The osseous structures in the pelvis and lumbar spine demonstrates diffuse heterogeneous sclerotic changes compatible osseous metastasis. IMPRESSION: 1. 4.8 x 8.5 x 7.6 cm irregular heterogeneous mass with central hypodense area along the body of the pancreas. This may represent primary pancreatic malignancy versus collection of matted lymph nodes. 2. Extensive heterogeneous sclerotic changes in the pelvis and lumbar spine compatible with osseous metastasis. 3. Hepatic steatosis. 4. 1.1 cm hypodense nodule in the left adrenal gland probably an adenoma. WBC 5.8 RBC 3.57 HEMOGLOBIN 13.3 HEMATOCRIT 39.0 PLATELET COUNT 262 SODIUM 129 POTASSIUM 3.6 ANION GAP11 BUN 21 CREATININE 1.66 HEMOGLOBIN A1C 5.4 CALCIUM 9.2 LITHIUM 2.1 ALBUMIN 3.4 TRIGLYCERIDES 143 CHOLESTEROL 240 LDL 136 HDL 73 TSH 0.48 URINE DRUG SCREEN POSITIVE FOR CANNABIS URINE ANALYSIS NEGATIVE Appearnace: Other Speech: Other (CIRCUMSTANTIAL) Eye Contact: Other (INTERMITTENT) Affect: Constricted Mood: Irritable Orientation Impairment: None Memory Impairment: None Attention: Normal Hallucinations: Auditory Other: None Suicidality: None Homicidality: None Delusions: None Behavior: Guarded Insight: Poor Judgment: Poor Treatment ABILIFY 5 MG P.O. DAILY ZOLOFT 75 MG P.O. Q.H.S. OLANZAPINE 20 MG P.O. Q.H.S. Monitoring by Staff, Milieu, Group, and Individual counseling as needed -- According to the [place] Suicide Assessment the above named patient is on Q 15 MINUTE CHECKS. [id number]-Patient is unable to formulate a plan to safely meet their basic needs of food, clothing, and prison due to the severity of their mental illness. We are still titrating medications to an effective dose while maintaining a therapeutic environment to prevent decompensation and readmission. REVIEW OF Clinical notes [X ] RN notes [X] PCT documentation [X] SW notes Labs [ X] Medications [X] Care trends/care activity [X] Vitals [X] DISCUSSION WITH document control assistant [X] Staff SW [X] Treatment Team [X] Discharge UNSURE AT THIS TIME. LPS REFERRAL SENT CODING VISIT-PSYCHIATRY Date of Service: Aug 19, 2024 Billing Provider: KERRIE RIZO APRN Psych Common Visit Codes: [id number] INP/OBS CARE(Mod) KERRIE RIZO APRN Aug 19, 2024 12:24
[2024-08-19] MEDS: benztropine 1mg tablet PO SCH (13:07)
[2024-08-19 18:30] VITALS: RESP 16; O2SAT 95
[2024-08-19 19:40] VITALS: BP 116/89; PULSE 114; RESP 20; TEMP 99.1; O2SAT 99
[2024-08-20 07:00] VITALS: RESP 20; O2SAT 97
[2024-08-20 08:00] VITALS: BP 113/86; PULSE 81; RESP 20; TEMP 96.4; O2SAT 97
[2024-08-20] MEDS ORDERED: iohexol 300mg/ml 100ml inj. ONE (08:56)
--- NOTE | 2024-08-20 10:35 | RADIOLOGY REPORT ---
CT HEAD WITH CONTRAST CLINICAL HISTORY: hx of metastatic cancer w bizzare ideation TECHNIQUE: Multiple contiguous axial images of the head with and without contrast. Coronal and sagittal reforma ts. 100 cc of Omnipaque 350 contrast was injected intravenously. Radiation Dose Information: CT Dose: CTDI volume is 54 mGy. Dose-length product is 05/28/2005 mGy*cm Comparison: None FINDINGS: There is mild generalized parenchymal volume loss. There is no evidence of intracranial hemorrhage, m ass, mass effect or midline shift. There is no hydrocephalus or extra-axial fluid collection. There is no pathologic focus of enhancement. The roberts-white matter differentiation appears maintained. The visualized paranasal sinuses are clear. The osseous structures appear unremarkable. IMPRESSION: 1. There is no acute intracranial process. HS:Y
--- NOTE | 2024-08-20 14:09 | PROGRESS NOTE ---
Progress Note Dictate Providers to CC ~ Central Line/PICC still needed: N\\A [place] Indications Met/Not Met: F/C Indications Not Met Antibiotic Ordered?: No MRSA Education MRSA Education Provided to pt: No Objective Vitals Vital Signs Date Time Temp Pulse Resp B/P (MAP) Pulse Ox O2 Delivery O2 Flow Rate FiO2 08/20/24 08:00 96.4 81 20 113/86 (95) 97 Room Air Lab Results: 08/17/24 1040 Counseling Services Smoking & Tobacco Cessation: > 10 Minutes Problem\\Assessment\\Plan Problems/Diagnosis: (1) Schizoaffective disorder, bipolar type (2) Gravely disabled Psychiatrist's Progress Note Date of Service: Aug 19, 2024 Notes CHART REVIEW Kia is a 55-year-old female on the medical floor of [facility] referred for a mental health evaluation. Toxicology report positive for THC. Kia is an active client of [facility]. Per [place] clinician, client has been decompensating over the past three months. Reporting that she had not been letting them into her home, most recent visitation clinician discovered home to be an unlivable declined. She stated that the client although reporting she has been eating and has food in her home, this information is boss, and client's physical well-being and weight loss is evident, and evidence verify and there is no food in the home. Client lives on her own in his uncertain if she has been able to maintain a medication regiment. ASSESSMENT The patient is interviewed in observation room. Patient seen actively resting in bed . The patient endorses "Alright." The patient endorses "I am still having a lot of stomach issues." The patient endorses no worsening mental health symptoms. Denies SI. Denies HI. Denies AVH. Patient endorses adequate sleep and food intake. The patient is stable no acute distress noted. The patient is depressed, cooperative, and engaged during session. Per staff report no behavior issues. Per staff report patient is compliant with medication regimen. Will continue daily assessment and adjusting treatment as needed. Closely monitor behavior and response to medication during hospitalization I spoke with , at [facility], patient consent and notify him of CT abdomen results and fax him the results. endorses the mass on the pancreas is new and the patient needs a follow-up appointment as soon as possible for a new treatment plan. Left message for Maria T wynn's case investigator waiting on returned phone call. Results Of any Diagn. Testing REVIEW OF LABS WBC 5.8 RBC 3.57 HEMOGLOBIN 13.3 HEMATOCRIT 39.0 PLATELET COUNT 262 SODIUM 129 POTASSIUM 3.6 ANION GAP11 BUN 21 CREATININE 1.66 HEMOGLOBIN A1C 5.4 CALCIUM 9.2 LITHIUM 2.1 ALBUMIN 3.4 TRIGLYCERIDES 143 CHOLESTEROL 240 LDL 136 HDL 73 TSH 0.48 URINE DRUG SCREEN POSITIVE FOR CANNABIS URINE ANALYSIS NEGATIVE Appearnace: Disheveled (DISHEVELED. AVERAGE HEIGHT THIN FEMALE. WEARING GREEN SCRUBS. BLONDE GRAYING HAIR PULLED BACK IN A PONY TAIL) Speech: Impoverished Eye Contact: Other (INTERMITTENT) Motor Activity: Normal Affect: Constricted Mood: Depressed Orientation Impairment: None Memory Impairment: None Attention: Normal Hallucinations: None Other: None Suicidality: None Homicidality: None Delusions: None Behavior: Guarded Insight: Poor Judgment: Poor Treatment ABILIFY 5 MG P.O. DAILY ZOLOFT 75 MG P.O. Q.H.S. OLANZAPINE 20 MG P.O. Q.H.S. Monitoring by Staff, Milieu, Group, and Individual counseling as needed -- According to the [place] Suicide Assessment the above named patient is on Q 15 MINUTE CHECKS. [id number]-Patient is unable to formulate a plan to safely meet their basic needs of food, clothing, and prison due to the severity of their mental illness. We are still titrating medications to an effective dose while maintaining a therapeutic environment to prevent decompensation and readmission. REVIEW OF Clinical notes [X ] RN notes [X] PCT documentation [X] SW notes Labs [ X] Medications [X] Care trends/care activity [X] Vitals [X] DISCUSSION WITH restaurant hourly manager [X] Staff SW [X] Treatment Team [X] Discharge UNSURE AT THIS TIME. LPS REFERRAL SENT CODING VISIT-PSYCHIATRY Date of Service: Aug 19, 2024 Billing Provider: KERRIE RIZO APRN Psych Common Visit Codes: [id number] DISCH DAY >30min KERRIE RIZO APRN Aug 20, 2024 14:09
--- NOTE | 2024-08-20 16:04 | PROGRESS NOTE ---
Daily Progress Note Providers to CC ~ Antibiotic Timeout Antibiotic Ordered?: No Subjective This is the hospitalist progress note on patients hospitalized at [facility]. I reviewed the abdominal and pelvic overnight oral contrast prep CT scan results with the patient and discussed the fact that she has an region in the epigastric region that is either a pancreatic mass or matted lymph nodes. The patient states she has a Dr. and kept telling me that she has a UTI and needs antibiotics the only detail she could informed me of is that she has a abdominal discomfort and points to the mid abdominal region Objective Vital Signs Date Time Temp Pulse Resp B/P (MAP) Pulse Ox O2 Delivery O2 Flow Rate FiO2 08/20/24 08:00 96.4 81 20 113/86 (95) 97 Room Air Result Diagram: 08/17/24 1040 Gen. No acute distress alert and oriented Lungs clear to ascultation bilaterally, no wheezes rales or rhonchi appreciated Heart normal sinus rhythm no murmurs rubs or clicks noted Abdomen soft nontender bowel sounds are normoactive Lower extremities no clubbing cyanosis, nor edema appreciated bilaterally Problem\Assessment\Plan Problems/Diagnosis: (1) Bipolar 1 disorder # bipolar disorder- on a 5150 due to being gravely disabled Psychiatry following # significant constipation with secondary nausea and vomiting The patient's RN has witnessed the patient was sticking her finger down her throat and inducing vomiting for which I discussed with the patient- for which she informed me that food gets stuck and that's why she was inducing vomiting when I informed her that this could harm her and cause injury to her esophagus the patient stated she can do what she wants Scheduled lactulose until large bowel movement Metamucil nightly and x1 Dulcolax suppositories p.r.n. constipation # 4.8 x 8.5 x 7.6 cm irregular heterogeneous mass with central hypodense area along the body of the pancreas. I informed the patient that this could be either a primary pancreatic malignancy versus a collection of matted lymph nodes which Elenita Izaguirre psychologists contacted pt's oncology office of Dr Martinez and faxed over the CT scan results and was informed that the patient needs to follow up in the office and likely change her chemo therapy regimen unfortunately the patient is awaiting for an LPS conservatorship. # bone and lung cancer We will need to follow up with Oncology once no longer hospitalized on a 5150 # Tobacco abuse-I spent 12 minutes discussing smoking cessation with the patient including the risk of continuing smoke: Lung cancer, stroke, heart attack, poor wound healing, increased in facial wrinkling, cigarette smoke also leads a foul smell on clothing and fabrics, risk of MRSA skin infections. The expense of smoking cigarettes and how cigarettes have been scientifically engineered to be as addictive as humanly possible. The patient has accepted PRN nicotine lozenges and a 21 mg nicotine patch # daily cannabis use Unknown if this is contributing to her disability, psychiatry to tease this out. # hypokalemia With further episodes of emesis a CMP is ordered for the morning # acute kidney injury Likely secondary to dehydration due to vomiting Significantly improved # gastritis- Maalox as ordered P.r.n. Zofran and p.r.n. Compazine Due to the patient's history of breast cancer with metastasis to the bone I have ordered a CT scan of the abdomen and pelvis with overnight oral contrast prep and IV contrast The Hospitalist service will continue to follow the patient Date of Service: Aug 20, 2024 Billing Provider: DAWN SALCEDO DO Common Visit Codes: [id number] INP/OBS CARE(HIGH) DAWN SALCEDO DO Aug 20, 2024 16:04
[2024-08-20 18:35] VITALS: RESP 16; O2SAT 96
[2024-08-20 19:09] VITALS: BP 130/70; PULSE 65; RESP 18; TEMP 98.8; O2SAT 96
[2024-08-20 19:23] LABS: BILIRUBIN,URINE NEGATIVE (Neg); COLOR,URINE YELLOW (Yellow); GLUCOSE, URINE NEGATIVE (Neg); KETONES,URINE NEGATIVE (Neg); LEUKOCYTE ESTERASE ,URINE NEGATIVE (Neg); NITRITES, URINE NEGATIVE (Neg); OCCULT BLOOD,URINE NEGATIVE (Neg); PROTEIN,URINE NEGATIVE (Neg); UROBILINOGEN,URINE 0.2 E.U/dL (0.2-1.0)
[2024-08-20 19:29] LABS: BACTERIA,URINE 1+ /HPF (Neg); CLARITY,URINE SLIGHTLY CLOUDY (Clear); SQUAMOUS EPITHELIAL CELL,UR MANY /LPF (FEW); UA COLLECTION TYPE CLN CATCH MIDSTREAM
[2024-08-20 19:30] LABS: RBC,URINE NONE SEEN /HPF (0-2); WBC,URINE 0-4 /HPF (0-4)
[2024-08-21 07:00] VITALS: RESP 18; O2SAT 100
[2024-08-21 08:00] VITALS: BP 116/71; PULSE 75; RESP 18; TEMP 97.7; O2SAT 100
--- NOTE | 2024-08-21 09:57 | PROGRESS NOTE ---
Progress Note Dictate Providers to CC ~ Central Line/PICC still needed: N\\A Antibiotic Ordered?: No MRSA Education MRSA Education Provided to pt: No Objective Vitals Vital Signs Date Time Temp Pulse Resp B/P (MAP) Pulse Ox O2 Delivery O2 Flow Rate FiO2 08/21/24 08:00 97.7 75 18 116/71 (86) 100 Room Air Lab Results: 08/17/24 1040 Problem\\Assessment\\Plan Problems/Diagnosis: (1) Schizoaffective disorder, bipolar type (2) Gravely disabled Psychiatrist's Progress Note Date of Service: Aug 21, 2024 Notes CHART REVIEW Kia is a 55-year-old female on the medical floor of [facility] referred for a mental health evaluation. Toxicology report positive for THC. Kia is an active client of [facility]. Per [place] clinician, client has been decompensating over the past three months. Reporting that she had not been letting them into her home, most recent visitation clinician discovered home to be an unlivable declined. She stated that the client although reporting she has been eating and has food in her home, this information is boss, and client's physical well-being and weight loss is evident, and evidence verify and there is no food in the home. Client lives on her own in his uncertain if she has been able to maintain a medication regiment. ASSESSMENT The patient is interviewed in observation room. Patient seen actively sitting in rec room. The patient endorses "okay." The patient endorses patient endorses she is still having a lot of stomach issues. Per chart review the patient is eating 50-100% of her meals and last had Zofran at midnight. The patient endorses "I want to go home not be conserved." The patient endorses no worsening mental health symptoms. Denies SI. Denies HI. Denies AVH. Patient endorses adequate sleep and food intake. The patient is stable no acute distress noted. The patient is depressed, cooperative, and engaged during session. Per staff report no behavior issues. Per staff report patient is compliant with medication regimen. Will continue daily assessment and adjusting treatment as needed. Closely monitor behavior and response to medication during hospitalization Results Of any Diagn. Testing REVIEW OF LABS WBC 5.8 RBC 3.57 HEMOGLOBIN 13.3 HEMATOCRIT 39.0 PLATELET COUNT 262 SODIUM 129 POTASSIUM 3.6 ANION GAP11 BUN 21 CREATININE 1.66 HEMOGLOBIN A1C 5.4 CALCIUM 9.2 LITHIUM 2.1 ALBUMIN 3.4 TRIGLYCERIDES 143 CHOLESTEROL 240 LDL 136 HDL 73 TSH 0.48 URINE DRUG SCREEN POSITIVE FOR CANNABIS URINE ANALYSIS NEGATIVE Appearnace: Disheveled (DISHEVELED. AVERAGE HEIGHT THIN FEMALE. WEARING GREEN SCRUBS. BLONDE GRAYING HAIR PULLED BACK IN A PONY TAIL) Speech: Other (CIRCUMSTANTIAL) Eye Contact: Other (INTERMITTENT) Motor Activity: Normal Affect: Constricted Orientation Impairment: None Memory Impairment: None Attention: Normal Hallucinations: None Other: None Suicidality: None Homicidality: None Delusions: None Behavior: Cooperative Insight: Poor Judgment: Poor Treatment ABILIFY 5 MG P.O. DAILY ZOLOFT 75 MG P.O. Q.H.S. OLANZAPINE 20 MG P.O. Q.H.S. Monitoring by Staff, Milieu, Group, and Individual counseling as needed -- According to the [place] Suicide Assessment the above named patient is on Q 15 MINUTE CHECKS. [id number]-Patient is unable to formulate a plan to safely meet their basic needs of food, clothing, and longterm due to the severity of their mental illness. We are still titrating medications to an effective dose while maintaining a therapeutic environment to prevent decompensation and readmission. REVIEW OF Clinical notes [X ] RN notes [X] PCT documentation [X] SW notes Labs [ X] Medications [X] Care trends/care activity [X] Vitals [X] DISCUSSION WITH line assembler aircraft [X] Staff SW [X] Treatment Team [X] Discharge UNSURE AT THIS TIME. LPS REFERRAL SENT CODING VISIT-PSYCHIATRY Date of Service: Aug 21, 2024 Billing Provider: KERRIE RIZO APRN Psych Common Visit Codes: [id number] INP/OBS CARE(Mod) KERRIE RIZO APRN Aug 21, 2024 09:57
[2024-08-21 19:00] VITALS: RESP 16
[2024-08-21 20:00] VITALS: BP 114/84; PULSE 94; RESP 16; TEMP 98.7; O2SAT 95
[2024-08-22] MEDS: acetaminophen 325mg tablet PO ONE (01:00)
[2024-08-22 07:00] VITALS: RESP 16; O2SAT 92
[2024-08-22 08:00] VITALS: BP 111/79; PULSE 110; RESP 16; TEMP 99; O2SAT 92
--- NOTE | 2024-08-22 12:38 | PROGRESS NOTE ---
Progress Note Dictate Providers to CC ~ Central Line/PICC still needed: N\\A Antibiotic Ordered?: No MRSA Education MRSA Education Provided to pt: No Objective Vitals Vital Signs Date Time Temp Pulse Resp B/P (MAP) Pulse Ox O2 Delivery O2 Flow Rate FiO2 08/22/24 08:00 99.0 110 16 111/79 (90) 92 Room Air Problem\\Assessment\\Plan Problems/Diagnosis: (1) Schizoaffective disorder, bipolar type (2) Gravely disabled Psychiatrist's Progress Note Date of Service: Aug 22, 2024 Notes CHART REVIEW Kia is a 55-year-old female on the medical floor of [facility] referred for a mental health evaluation. Toxicology report positive for THC. Kia is an active client of [facility]. Per [place] clinician, client has been decompensating over the past three months. Reporting that she had not been letting them into her home, most recent visitation clinician discovered home to be an unlivable declined. She stated that the client although reporting she has been eating and has food in her home, this information is boss, and client's physical well-being and weight loss is evident, and evidence verify and there is no food in the home. Client lives on her own in his uncertain if she has been able to maintain a medication regiment. ASSESSMENT The patient is interviewed in observation room. Patient seen actively sitting in rec room. The patient endorses "okay." Patient endorses "I am tired answering questions." "Can you guys just leave me alone." The patient endorses no worsening mental health symptoms. Denies SI. Denies HI. Denies AVH. Patient endorses adequate sleep and food intake. The patient is stable no acute distress noted. The patient is agitated, uncooperative, and disengaged during session. Per staff report no behavior i ssues. Per staff report patient is compliant with medication regimen. Will continue daily assessment and adjusting treatment as needed. Closely monitor behavior and response to medication during hospitalization Results Of any Diagn. Testing REVIEW OF LABS WBC 5.8 RBC 3.57 HEMOGLOBIN 13.3 HEMATOCRIT 39.0 PLATELET COUNT 262 SODIUM 129 POTASSIUM 3.6 ANION GAP11 BUN 21 CREATININE 1.66 HEMOGLOBIN A1C 5.4 CALCIUM 9.2 LITHIUM 2.1 ALBUMIN 3.4 TRIGLYCERIDES 143 CHOLESTEROL 240 LDL 136 HDL 73 TSH 0.48 URINE DRUG SCREEN POSITIVE FOR CANNABIS URINE ANALYSIS NEGATIVE Appearnace: Disheveled (AVERAGE HEIGHT THIN FEMALE. WEARING GREEN SCRUBS. BLONDE GRAYING HAIR PULLED BACK IN A PONY TAIL) Speech: Other (CIRCUMSTANTIAL) Eye Contact: Normal Motor Activity: Normal Affect: Flat Orientation Impairment: None Memory Impairment: None Attention: Normal Hallucinations: None Other: None Suicidality: None Homicidality: None Delusions: None Behavior: Agitated Insight: Poor Judgment: Poor Treatment ABILIFY 5 MG P.O. DAILY ZOLOFT 75 MG P.O. Q.H.S. OLANZAPINE 20 MG P.O. Q.H.S. Monitoring by Staff, Milieu, Group, and Individual counseling as needed -- According to the [place] Suicide Assessment the above named patient is on Q 15 MINUTE CHECKS. [id number]-Patient is unable to formulate a plan to safely meet their basic needs of food, clothing, and alf due to the severity of their mental illness. We are still titrating medications to an effective dose while maintaining a therapeutic environment to prevent decompensation and readmission. REVIEW OF Clinical notes [X ] RN notes [X] PCT documentation [X] SW notes Labs [ X] Medications [X] Care trends/care activity [X] Vitals [X] DISCUSSION WITH rpg programmer analyst [X] Staff SW [X] Treatment Team [X] Discharge UNSURE AT THIS TIME. LPS REFERRAL SENT CODING VISIT-PSYCHIATRY Date of Service: Aug 22, 2024 Billing Provider: KERRIE RIZO APRN Psych Common Visit Codes: [id number] INP/OBS CARE(Mod) KERRIE RIZO APRN Aug 22, 2024 12:38
--- NOTE | 2024-08-22 18:44 | PROGRESS NOTE ---
Daily Progress Note Providers to CC ~ Antibiotic Timeout Antibiotic Ordered?: No Subjective Patient was seen in mental health unit she was having emesis episodes. She mentioned she is constipated since couple of days. Objective Vital Signs Date Time Temp Pulse Resp B/P (MAP) Pulse Ox O2 Delivery O2 Flow Rate FiO2 08/22/24 08:00 99.0 110 16 111/79 (90) 92 Room Air General-patient not in any acute distress, alert awake chronically ill-appearing HEENT-atraumatic normocephalic, neck supple without elevated JVD, no thyromegaly or carotid bruit. No lymphadenopathy bilaterally. Eyes-no icterus or pallor seen in eyes Chest-clear to auscultation bilaterally, breathing nonlabored no tachypnea, no wheezing, no crepitation, no crackles. Heart-S1-S2 normal, regular heart rate no murmur Abdomen bowel sounds positive on auscultation, soft nondistended , signs of subjective discomfort, present over abdomen no guarding, no rigidity Skin no active skin rash Neurology-grossly intact, nonfocal alert awake oriented Extremity- no pedal edema able to move all 4 extremities Psychiatry - patient is not confused or agitated cooperated during physical examination Problem\Assessment\Plan Problems/Diagnosis: (1) Bipolar 1 disorder # bipolar disorder- on a 5150 due to being gravely disabled Psychiatry following # significant constipation with secondary nausea and vomiting- ordered KUB today # hypokalemia- resolved # acute kidney injury Likely secondary to dehydration due to vomiting Significantly improved # gastritis- Maalox as ordered P.r.n. Zofran and p.r.n. Compazine #Hyponatremia-improved Patient's current condition is guarded we will continue to follow from hospitalist team as needed or as per protocol Date of Service: Aug 22, 2024 Billing Provider: ELÍAS SNOW MD Common Visit Codes: [id number] INP/OBS CARE(LOW) ELÍAS SNOW MD Aug 22, 2024 18:44
[2024-08-22 19:00] VITALS: RESP 16
--- NOTE | 2024-08-22 19:04 | RADIOLOGY REPORT ---
Date: 08/22/2024 06:42 PM Examination: DI ABDOMEN,SINGLE VIEW(KUB) History: constipation Comparison: DI ABDOMEN,SINGLE VIEW(KUB) on DOS: 08/17/24, DI ABDOMEN,SINGLE VIEW(KUB) on DOS: 08/15/24 TECHNIQUE: Frontal views of the abdomen was obtained. FINDINGS: Bowel gas pattern is unremarkable. Contrast in the transverse colon. Persistent findings of stool in the left colon. The lung bases are unremarkable. No acute osseous abnormality identified. IMPRESSION: 1. Contrast in the transverse colon. 2. Persistent stool in the left colon.
[2024-08-22 21:40] VITALS: BP 115/82; PULSE 72; RESP 16; TEMP 97.4; O2SAT 95
[2024-08-22 21:45] VITALS: BP 115/82; PULSE 72; RESP 16; TEMP 97.4; O2SAT 95
[2024-08-23 08:00] VITALS: PULSE 15; RESP 15; TEMP 98.8; O2SAT 98
--- NOTE | 2024-08-23 13:04 | PROGRESS NOTE ---
Progress Note Dictate Providers to CC ~ Central Line/PICC still needed: N\\A Antibiotic Ordered?: No MRSA Education MRSA Education Provided to pt: No Objective Vitals Vital Signs Date Time Temp Pulse Resp B/P (MAP) Pulse Ox O2 Delivery O2 Flow Rate FiO2 08/23/24 08:00 98.8 15 15 98 Room Air 08/22/24 21:45 115/82 (93) Problem\\Assessment\\Plan Problems/Diagnosis: (1) Schizoaffective disorder, bipolar type (2) Gravely disabled Psychiatrist's Progress Note Date of Service: Aug 23, 2024 Notes CHART REVIEW Kia is a 55-year-old female on the medical floor of [facility] referred for a mental health evaluation. Toxicology report positive for THC. Kia is an active client of [facility]. Per [place] clinician, client has been decompensating over the past three months. Reporting that she had not been letting them into her home, most recent visitation clinician discovered home to be an unlivable declined. She stated that the client although reporting she has been eating and has food in her home, this information is boss, and client's physical well-being and weight loss is evident, and evidence verify and there is no food in the home. Client lives on her own in his uncertain if she has been able to maintain a medication regiment. ASSESSMENT The patient is interviewed in observation room. Patient seen actively sitting edge of bed. The patient endorses "fine." The patient endorses no worsening mental health symptoms. Denies SI. Denies HI. Denies AVH. Patient endorses adequate sleep and food intake. The patient is stable no acute distress noted. The patient is agitated, uncooperative, and disengaged during session. Per staff report no behavior issues. Per staff report patient is compliant with medication regimen. Per report patient is self isolates. Patient encouraged to participate in unit/group activities daily. Will continue daily assessment and adjusting treatment as needed. Closely monitor behavior and response to medication during hospitalization Results Of any Diagn. Testing REVIEW OF LABS WBC 5.8 RBC 3.57 HEMOGLOBIN 13.3 HEMATOCRIT 39.0 PLATELET COUNT 262 SODIUM 129 POTASSIUM 3.6 ANION GAP11 BUN 21 CREATININE 1.66 HEMOGLOBIN A1C 5.4 CALCIUM 9.2 LITHIUM 2.1 ALBUMIN 3.4 TRIGLYCERIDES 143 CHOLESTEROL 240 LDL 136 HDL 73 TSH 0.48 URINE DRUG SCREEN POSITIVE FOR CANNABIS URINE ANALYSIS NEGATIVE Appearnace: Other (AVERAGE HEIGHT THIN FEMALE. WEARING GREEN SCRUBS. BLONDE GRAYING HAIR PULLED BACK IN A PONY TAIL) Speech: Other (CIRCUMSTANTIAL) Eye Contact: Other (INTERMITTENT) Motor Activity: Normal Affect: Labile Mood: Irritable Orientation Impairment: None Memory Impairment: None Attention: Normal Hallucinations: None Other: None Suicidality: None Homicidality: None Delusions: None Behavior: Agitated Insight: Poor Judgment: Poor Treatment ABILIFY 5 MG P.O. DAILY ZOLOFT 75 MG P.O. Q.H.S. OLANZAPINE 20 MG P.O. Q.H.S. Monitoring by Staff, Milieu, Group, and Individual counseling as needed -- According to the [place] Suicide Assessment the above named patient is on Q 15 MINUTE CHECKS. [id number]-Patient is unable to formulate a plan to safely meet their basic needs of food, clothing, and fpc due to the severity of their mental illness. We are still titrating medications to an effective dose while maintaining a therapeutic environment to prevent decompensation and readmission. REVIEW OF Clinical notes [X ] RN notes [X] PCT documentation [X] SW notes Labs [ X] Medications [X] Care trends/care activity [X] Vitals [X] DISCUSSION WITH lab aide [X] Staff SW [X] Treatment Team [X] Discharge UNSURE AT THIS TIME. LPS REFERRAL SENT CODING VISIT-PSYCHIATRY Date of Service: Aug 23, 2024 Billing Provider: KERRIE RIZO APRN Psych Common Visit Codes: [id number] INP/OBS CARE(Mod) KERRIE RIZO APRN Aug 23, 2024 13:03
[2024-08-23 19:00] VITALS: RESP 16; O2SAT 98
[2024-08-23 20:00] VITALS: BP 117/75; PULSE 114; RESP 16; TEMP 98; O2SAT 98
[2024-08-23] MEDS: acetaminophen 325mg tablet PO PRN (20:26)
[2024-08-24 07:00] VITALS: RESP 16; O2SAT 100
[2024-08-24 08:00] VITALS: BP 114/84; PULSE 110; RESP 16; TEMP 98.4; O2SAT 100
--- NOTE | 2024-08-24 11:34 | PROGRESS NOTE ---
Progress Note Dictate Providers to CC ~ Central Line/PICC still needed: N\\A Antibiotic Ordered?: No MRSA Education MRSA Education Provided to pt: No Objective Vitals Vital Signs Date Time Temp Pulse Resp B/P (MAP) Pulse Ox O2 Delivery O2 Flow Rate FiO2 08/24/24 08:00 98.4 110 16 114/84 (94) 100 Room Air Problem\\Assessment\\Plan Problems/Diagnosis: (1) Schizoaffective disorder, bipolar type (2) Gravely disabled Psychiatrist's Progress Note Date of Service: Aug 24, 2024 Notes CHART REVIEW Kia is a 55-year-old female on the medical floor of [facility] referred for a mental health evaluation. Toxicology report positive for THC. Kia is an active client of [facility]. Per [place] clinician, client has been decompensating over the past three months. Reporting that she had not been letting them into her home, most recent visitation clinician discovered home to be an unlivable declined. She stated that the client although reporting she has been eating and has food in her home, this information is boss, and client's physical well-being and weight loss is evident, and evidence verify and there is no food in the home. Client lives on her own in his uncertain if she has been able to maintain a medication regiment. ASSESSMENT The patient is interviewed in observation room. Patient seen actively sitting in rec room. The patient endorses "Okay." The patient endorses she is still "vomiting sometimes."The patient was informed that she has an appointment on Saturday for her cancer injection and she will see her oncologist at that time. The patient endorses no worsening mental health symptoms. Denies SI. Denies HI. Denies AVH. Patient endorses adequate sleep and food intake. The patient is stable no acute distress noted. The patient is irritable, cooperative, and engaged during session. Per staff report no behavior issues. Per staff report patient is compliant with medication regimen. Per report patient is self isolates. Patient encouraged to participate in unit/group activities daily. Will continue daily assessment and adjusting treatment as needed. Closely monitor behavior and response to medication during hospi talization Results Of any Diagn. Testing REVIEW OF LABS WBC 5.8 RBC 3.57 HEMOGLOBIN 13.3 HEMATOCRIT 39.0 PLATELET COUNT 262 SODIUM 129 POTASSIUM 3.6 ANION GAP11 BUN 21 CREATININE 1.66 HEMOGLOBIN A1C 5.4 CALCIUM 9.2 LITHIUM 2.1 ALBUMIN 3.4 TRIGLYCERIDES 143 CHOLESTEROL 240 LDL 136 HDL 73 TSH 0.48 URINE DRUG SCREEN POSITIVE FOR CANNABIS URINE ANALYSIS NEGATIVE Appearnace: Other (AVERAGE HEIGHT THIN FEMALE. WEARING GREEN SCRUBS. BLONDE GRAYING HAIR PULLED BACK IN A PONY TAIL) Speech: Other (CIRCUMSTANTIAL) Eye Contact: Other (INTERMITTENT) Motor Activity: Normal Affect: Constricted Mood: Irritable Orientation Impairment: None Memory Impairment: None Attention: Normal Hallucinations: None Other: None Suicidality: None Homicidality: None Delusions: None Behavior: Guarded Insight: Poor Judgment: Poor Treatment ABILIFY 5 MG P.O. DAILY ZOLOFT 75 MG P.O. Q.H.S. OLANZAPINE 20 MG P.O. Q.H.S. Monitoring by Staff, Milieu, Group, and Individual counseling as needed -- According to the [place] Suicide Assessment the above named patient is on Q 15 MINUTE CHECKS. [id number]-Patient is unable to formulate a plan to safely meet their basic needs of food, clothing, and half-way due to the severity of their mental illness. We are still titrating medications to an effective dose while maintaining a therapeutic environment to prevent decompensation and readmission. REVIEW OF Clinical notes [X ] RN notes [X] PCT documentation [X] SW notes Labs [ X] Medications [X] Care trends/care activity [X] Vitals [X] DISCUSSION WITH test pilot [X] Staff SW [X] Treatment Team [X] Discharge UNSURE AT THIS TIME. LPS REFERRAL SENT CODING VISIT-PSYCHIATRY Date of Service: Aug 24, 2024 Billing Provider: KERRIE RIZO APRN Psych Common Visit Codes: [id number] INP/OBS CARE(Mod) KERRIE RIZO APRN Aug 24, 2024 11:34
[2024-08-24] MEDS ORDERED: polyethylene glycol 3350 17gm powd pack PO PRN (19:20)
[2024-08-24 19:32] VITALS: RESP 16; O2SAT 95
[2024-08-24 19:37] VITALS: BP 110/80; PULSE 97; RESP 16; TEMP 98.2; O2SAT 95
--- NOTE | 2024-08-24 20:06 | PROGRESS NOTE- Residence ---
Progress Note - Resident Providers to CC Resident Creating Document: GEN KUMAR, NAREN ~ Antibiotic Timeout Antibiotic Ordered?: No Subjective Patient was seen in the mental health unit today, she was difficult to approach and did not consent for examination. Objective Vital Signs Date Time Temp Pulse Resp B/P (MAP) Pulse Ox O2 Delivery O2 Flow Rate FiO2 08/24/24 19:37 98.2 97 16 110/80 (90) 95 Room Air General: Awake and Alert, no acute distress. Patient did not consent for examination Assessment Assessment # bipolar disorder- on a 5150 due to being gravely disabled Psychiatry following # significant constipation with secondary nausea and vomiting- Abdominal x-ray showed persistent stool in the left colon # hypokalemia- resolved # acute kidney injury Likely secondary to dehydration due to vomiting Significantly improved # gastritis- Maalox as ordered P.r.n. Zofran and p.r.n. Compazine #Hyponatremia-improved Gen Kumar m.d pgy1 Date of Service: Aug 24, 2024 Billing Provider: JOANN MORRISSEY MD Common Visit Codes: [id number] INP/OBS CARE(MOD) GEN KUMAR, NAREN Aug 24, 2024 20:06 JOANN MORRISSEY MD Aug 24, 2024 20:33
[2024-08-25 07:00] VITALS: RESP 16; O2SAT 98
[2024-08-25] MEDS: bisacodyl 10mg suppository rectal RC PRN (08:17)
[2024-08-25 08:42] VITALS: BP 92/60; PULSE 78; RESP 16; TEMP 97.7; O2SAT 98
[2024-08-25 11:25] LABS: BASOPHILS # (AUTO) 0.1 X10'3 (0-0.2); BASOPHILS % (AUTO) 0.9 % (0-1); EOSINOPHILS % (AUTO) 0.7 % (0-6); HEMATOCRIT 34.1 % (35.0-45.0); HEMOGLOBIN 11.6 g/dl (12.0-16.0); LYMPHOCYTES # (AUTO) 0.7 X10'3 (1.1-4.8); LYMPHOCYTES % (AUTO) 12.7 % (21-51); MEAN CORPUSCULAR HEMOGLOBIN 35.9 PG (27.0-31.0); MEAN CORPUSCULAR HGB CONC 34.1 g/dL (33.0-36.5); MEAN CORPUSCULAR VOLUME 105.2 FL (78-98); MEAN PLATELET VOLUME 6.8 FL (7.4-10.4); MONOCYTES # (AUTO) 0.8 X10'3 (0-0.9); MONOCYTES % (AUTO) 13.8 % (2-12); NEUTROPHILS % (AUTO) 71.9 % (42-75); PLATELET COUNT 266 X10'3 (140-440); RED BLOOD COUNT 3.24 X10'6 (4.20-5.60); RED CELL DISTRIBUTION WIDTH 13.3 % (11.5-14.5); WHITE BLOOD COUNT 5.5 X10'3 (4.5-11.0)
[2024-08-25 11:47] LABS: PLATELET ESTIMATE NORMAL; TOTAL CELLS COUNTED 100
--- NOTE | 2024-08-25 14:22 | PROGRESS NOTE ---
Progress Note Dictate Providers to CC ~ Central Line/PICC still needed: N\\A Antibiotic Ordered?: No MRSA Education MRSA Education Provided to pt: No Objective Vitals Vital Signs Date Time Temp Pulse Resp B/P (MAP) Pulse Ox O2 Delivery O2 Flow Rate FiO2 08/25/24 08:42 97.7 78 16 92/60 (71) 98 Room Air Lab Results: 08/25/24 1113 Problem\\Assessment\\Plan Problems/Diagnosis: (1) Schizoaffective disorder, bipolar type (2) Gravely disabled Psychiatrist's Progress Note Date of Service: Aug 25, 2024 Notes CHART REVIEW Kia is a 55-year-old female on the medical floor of [facility] referred for a mental health evaluation. Toxicology report positive for THC. Kia is an active client of [facility]. Per [place] clinician, client has been decompensating over the past three months. Reporting that she had not been letting them into her home, most recent visitation clinician discovered home to be an unlivable declined. She stated that the client although reporting she has been eating and has food in her home, this information is boss, and client's physical well-being and weight loss is evident, and evidence verify and there is no food in the home. Client lives on her own in his uncertain if she has been able to maintain a medication regiment. ASSESSMENT The patient is interviewed in observation room. Patient seen actively sitting in rec room. The patient endorses "Okay." The patient endorses having last nausea and vomiting. The patient endorses no worsening mental health symptoms. Denies SI. Denies HI. Denies AVH. Patient endorses adequate sleep and food intake. The patient is stable no acute distress noted. The patient is irritable, cooperative, and engaged during session. Per staff report no behavior issues. Per staff report patient is compliant with medication regimen. Per report patient is self isolates. Patient encouraged to participate in unit/group activities daily. Will continue daily assessment and adjusting treatment as needed. Closely monitor behavior and response to medication during hospitalization Results Of any Diagn. Testing REVIEW OF LABS WBC 5.8 RBC 3.57 HEMOGLOBIN 13.3 HEMATOCRIT 39.0 PLATELET COUNT 262 SODIUM 129 POTASSIUM 3.6 ANION GAP11 BUN 21 CREATININE 1.66 HEMOGLOBIN A1C 5.4 CALCIUM 9.2 LITHIUM 2.1 ALBUMIN 3.4 TRIGLYCERIDES 143 CHOLESTEROL 240 LDL 136 HDL 73 TSH 0.48 URINE DRUG SCREEN POSITIVE FOR CANNABIS URINE ANALYSIS NEGATIVE Appearnace: Other (AVERAGE HEIGHT THIN FEMALE. WEARING GREEN SCRUBS. BLONDE GRAYING HAIR PULLED BACK IN A PONY TAIL) Speech: Impoverished, Other Eye Contact: Avoidant Motor Activity: Normal Affect: Flat Orientation Impairment: None Memory Impairment: None Attention: Normal Hallucinations: None Other: None Suicidality: None Homicidality: None Delusions: None Behavior: Cooperative Insight: Poor Judgment: Poor Treatment ABILIFY 5 MG P.O. DAILY ZOLOFT 100 MG P.O. Q.H.S. OLANZAPINE 20 MG P.O. Q.H.S. Monitoring by Staff, Milieu, Group, and Individual counseling as needed -- According to the [place] Suicide Assessment the above named patient is on Q 15 MINUTE CHECKS. [id number]-Patient is unable to formulate a plan to safely meet their basic needs of food, clothing, and snf due to the severity of their mental illness. We are still titrating medications to an effective dose while maintaining a therapeutic environment to prevent decompensation and readmission. REVIEW OF Clinical notes [X ] RN notes [X] PCT documentation [X] SW notes Labs [ X] Medications [X] Care trends/care activity [X] Vitals [X] DISCUSSION WITH architectural engineer [X] Staff SW [X] Treatment Team [X] Discharge UNSURE AT THIS TIME. LPS REFERRAL SENT CODING VISIT-PSYCHIATRY Date of Service: Aug 25, 2024 Billing Provider: KERRIE RIZO APRN Psych Common Visit Codes: [id number] INP/OBS CARE(Mod) KERRIE RIZO APRN Aug 25, 2024 14:22
[2024-08-25 18:42] LABS: ALANINE AMINOTRANSFERASE 422 U/L (12-78); ALBUMIN 3.2 G/DL (3.4-5.0); ALBUMIN/GLOBULIN RATIO 1.2 (1.1-1.5); ALKALINE PHOSPHATASE 449 IU/L (46-116); ANION GAP 5 (8-16); ASPARTATE AMINO TRANSFERASE 402 U/L (10-37); BILIRUBIN,TOTAL 2.8 MG/DL (0.1-1.0); BLOOD UREA NITROGEN 18 MG/DL (7-18); BUN/CREATININE RATIO 17.3 (10.0-20.0); CHLORIDE 88 MMOL/L (99-107); CREATININE 1.04 MG/DL (0.40-0.90); GLUCOSE 110 MG/DL (70-104); SODIUM 131 MMOL/L (135-145); TOTAL CARBON DIOXIDE 37.8 MMOL/L (24-32); TOTAL PROTEIN 5.9 G/DL (6.4-8.2); eCRCL 47 ML/MIN; eGFR 55 ML/MIN
[2024-08-25 18:55] LABS: POTASSIUM 2.9 MMOL/L (3.5-5.1)
[2024-08-25] MEDS ORDERED: magnesium sulf-water 2g/50mL 50 ML IV PRN (19:40)
[2024-08-25] MEDS ORDERED: magnesium Cl slow-release 64mg tablet PO PRN (19:40)
[2024-08-25] MEDS ORDERED: potassium Cl 40MEQ/1/2NS 520ml 520 ML IV PRN (19:40)
[2024-08-25] MEDS ORDERED: magnesium sulf-water 4G/100mL 100 ML IV PRN (19:40)
[2024-08-25 20:00] VITALS: RESP 16
[2024-08-25] MEDS: potassium Cl 20 mEq SR tablet PO PRN (20:10)
[2024-08-25] MEDS: K and/or MAG REPLACEMENT MC SCH (20:39)
[2024-08-26 07:00] VITALS: RESP 17; O2SAT 97
[2024-08-26 08:00] VITALS: BP 109/65; PULSE 106; RESP 17; TEMP 97.8; O2SAT 97
[2024-08-26] MEDS: NICOTINE POLACRILEX 2 MG LOZENGE BC PRN (08:35)
--- NOTE | 2024-08-26 11:16 | PROGRESS NOTE ---
Progress Note Dictate Providers to CC ~ Central Line/PICC still needed: N\\A Antibiotic Ordered?: No MRSA Education MRSA Education Provided to pt: No Objective Vitals Vital Signs Date Time Temp Pulse Resp B/P (MAP) Pulse Ox O2 Delivery O2 Flow Rate FiO2 08/26/24 08:00 97.8 106 17 109/65 (80) 97 Room Air Lab Results: 08/25/24 1113 08/26/24 0754 Problem\\Assessment\\Plan Problems/Diagnosis: (1) Schizoaffective disorder, bipolar type (2) Gravely disabled Psychiatrist's Progress Note Date of Service: Aug 26, 2024 Notes CHART REVIEW Kia is a 55-year-old female on the medical floor of [facility] referred for a mental health evaluation. Toxicology report positive for THC. Kia is an active client of [facility]. Per [place] clinician, client has been decompensating over the past three months. Reporting that she had not been letting them into her home, most recent visitation clinician discovered home to be an unlivable declined. She stated that the client although reporting she has been eating and has food in her home, this information is boss, and client's physical well-being and weight loss is evident, and evidence verify and there is no food in the home. Client lives on her own in his uncertain if she has been able to maintain a medication regiment. ASSESSMENT The patient is interviewed in observation room. Patient seen actively sitting up in bed. The patient endorses "I am good." The patient endorses she is excited about going to see her oncologist on Saturday. The patient endorses "when he gives me the injection it seems to make me feel better." The patient endorses no worsening mental health symptoms. Denies SI. Denies HI. Denies AVH. Patient endorses adequate sleep and food intake. The patient is stable no acute distress noted. The patient is calm, cooperative, and engaged during session. Per staff report no behavior issues. Per staff report patient is compliant with medication regimen. Per report patient is self isolates. Patient encouraged to participate in unit/group activities daily. Will continue daily assessment and adjusting treatment as needed. Closely monitor behavior and response to medication during hospitalization Results Of any Diagn. Testing REVIEW OF LABS WBC 5.8 RBC 3.57 HEMOGLOBIN 13.3 HEMATOCRIT 39.0 PLATELET COUNT 262 SODIUM 129 POTASSIUM 3.6 ANION GAP11 BUN 21 CREATININE 1.66 HEMOGLOBIN A1C 5.4 CALCIUM 9.2 LITHIUM 2.1 ALBUMIN 3.4 TRIGLYCERIDES 143 CHOLESTEROL 240 LDL 136 HDL 73 TSH 0.48 URINE DRUG SCREEN POSITIVE FOR CANNABIS URINE ANALYSIS NEGATIVE Appearnace: Other (AVERAGE HEIGHT THIN FEMALE. WEARING GREEN SCRUBS. BLONDE GRAYING HAIR PULLED BACK IN A PONY TAIL) Speech: Impoverished, Other (CIRCUMSTANTIAL) Affect: Constricted Orientation Impairment: None Memory Impairment: None Attention: Normal Hallucinations: None Other: None Suicidality: None Homicidality: None Delusions: None Behavior: Guarded Insight: Poor Judgment: Poor Treatment ABILIFY 5 MG P.O. DAILY ZOLOFT 100 MG P.O. Q.H.S. OLANZAPINE 20 MG P.O. Q.H.S. Monitoring by Staff, Milieu, Group, and Individual counseling as needed -- According to the [place] Suicide Assessment the above named patient is on Q 15 MINUTE CHECKS. [id number]-Patient is unable to formulate a plan to safely meet their basic needs of food, clothing, and intermediate due to the severity of their mental illness. We are still titrating medications to an effective dose while maintaining a therapeutic environment to prevent decompensation and readmission. REVIEW OF Clinical notes [X ] RN notes [X] PCT documentation [X] SW notes Labs [ X] Medications [X] Care trends/care activity [X] Vitals [X] DISCUSSION WITH baseball glove shaper [X] Staff SW [X] Treatment Team [X] Discharge UNSURE AT THIS TIME. LPS REFERRAL SENT CODING VISIT-PSYCHIATRY Date of Service: Aug 26, 2024 Billing Provider: KERRIE RIZO APRN Psych Common Visit Codes: [id number] INP/OBS CARE(Low) KERRIE RIZO APRN Aug 26, 2024 11:16
--- NOTE | 2024-08-26 16:14 | PROGRESS NOTE- Residence ---
Progress Note - Resident Providers to CC Resident Creating Document: SANDRA RICE, RES ~ Antibiotic Timeout Antibiotic Ordered?: No Subjective Patient was seen in the mental health unit today, she claims of having bone cancer and complaints of generalized pain of 10 on 10 in intensity. But however she was comfortable, lying down and did not show any signs of severe agony Objective Vital Signs Date Time Temp Pulse Resp B/P (MAP) Pulse Ox O2 Delivery O2 Flow Rate FiO2 08/26/24 08:00 97.8 106 17 109/65 (80) 97 Room Air Result Diagram: 08/25/24 1113 08/26/24 0754 Awake , alert, and oriented x4, delusions present HEENT: Atraumatic, normocephalic, EOMI, anicteric sclera ; pink conjunctiva Neck: Trachea midline. Supple, full range of motion, no JVD Cardiac: Regular rhythm, regular rate with no murmurs all over the precordium. Respiratory: Equal breath sounds bilaterally, no tachypnea, no wheezing ,rub or rales, Chest wall is symmetric and without deformity. Gastrointestinal: Abdomen symmetric, non-distended, soft, non-tender, normal bowel sounds x4 quadrant, normoactive, no hepatosplenomegaly Musculoskeletal: No peripheral edema, no cyanosis Neurological: No focal neurological deficits, speech clear, alert oriented, delusions present Skin: Warm and dry Advance Care Planning Advanced Care plannin - 30 Minutes Assessment Assessment # bipolar disorder- on a 5150 due to being gravely disabled Management per Psychiatry # significant constipation with secondary nausea and vomiting- Abdominal x-ray showed persistent stool in the left colon Patient has not complaints of any constipation at this visit, she had a bowel movement # hypokalemia- 3.6 today # acute kidney injury Likely secondary to dehydration due to vomiting Significantly improved # gastritis- Maalox as ordered P.r.n. Zofran and p.r.n. Compazine #Hyponatremia-improved to 131 today Sandra Rice MD Internal Medicine Resident, PGY-1 Date of Service: Aug 26, 2024 Billing Provider: JASWANT RIOS MD Common Visit Codes: [id number] INP/OBS CARE(MOD) SANDRA RICE, RES Aug 26, 2024 16:14 JASWANT RIOS MD Aug 30, 2024 16:43
[2024-08-26 19:00] VITALS: RESP 20; O2SAT 92
[2024-08-26 20:00] VITALS: BP 102/66; PULSE 107; RESP 20; TEMP 98; O2SAT 92
[2024-08-26] MEDS: sertraline 50mg tablet PO SCH (21:11)
[2024-08-26] MEDS ORDERED: ibuprofen 200mg tablet PO PRN (22:30)
[2024-08-27 07:00] VITALS: RESP 14; O2SAT 98
[2024-08-27 08:00] VITALS: BP 100/52; PULSE 71; RESP 14; TEMP 97.9; O2SAT 98
--- NOTE | 2024-08-27 15:43 | PROGRESS NOTE ---
Progress Note Dictate Providers to CC ~ Central Line/PICC still needed: N\\A Antibiotic Ordered?: No MRSA Education MRSA Education Provided to pt: No Objective Vitals Vital Signs Date Time Temp Pulse Resp B/P (MAP) Pulse Ox O2 Delivery O2 Flow Rate FiO2 08/27/24 08:00 97.9 71 14 100/52 (68) 98 Room Air Lab Results: 08/25/24 1113 08/26/24 0754 Problem\\Assessment\\Plan Problems/Diagnosis: (1) Schizoaffective disorder, bipolar type (2) Gravely disabled Psychiatrist's Progress Note Date of Service: Aug 27, 2024 Notes CHART REVIEW Kia is a 55-year-old female on the medical floor of [facility] referred for a mental health evaluation. Toxicology report positive for THC. Kia is an active client of [facility]. Per [place] clinician, client has been decompensating over the past three months. Reporting that she had not been letting them into her home, most recent visitation clinician discovered home to be an unlivable declined. She stated that the client although reporting she has been eating and has food in her home, this information is boss, and client's physical well-being and weight loss is evident, and evidence verify and there is no food in the home. Client lives on her own in his uncertain if she has been able to maintain a medication regiment. ASSESSMENT The patient is interviewed in observation room. Patient seen actively sitting up in bed. The patient endorses "okay." The patient endorses the nausea comes and goes. The patient endorses no worsening mental health symptoms. Denies SI. Denies HI. Denies AVH. Patient endorses adequate sleep and food intake. The patient is stable no acute distress noted. The patient is calm, cooperative, and engaged during session. Per staff report no behavior issues. Per staff report patient is compliant with medication regimen. Per report patient is self isolates. Patient encouraged to participate in unit/group activities daily. Will continue daily assessment and adjusting treatment as needed. Closely monitor behavior and response to medication during hospitalization Results Of any Diagn. Testing REVIEW OF LABS WBC 5.8 RBC 3.57 HEMOGLOBIN 13.3 HEMATOCRIT 39.0 PLATELET COUNT 262 SODIUM 129 POTASSIUM 3.6 ANION GAP11 BUN 21 CREATININE 1.66 HEMOGLOBIN A1C 5.4 CALCIUM 9.2 LITHIUM 2.1 ALBUMIN 3.4 TRIGLYCERIDES 143 CHOLESTEROL 240 LDL 136 HDL 73 TSH 0.48 URINE DRUG SCREEN POSITIVE FOR CANNABIS URINE ANALYSIS NEGATIVE Appearnace: Other (APPROPRIATE. AVERAGE HEIGHT THIN FEMALE. WEARING GREEN SCRUBS. BLONDE GRAYING HAIR PULLED BACK IN A PONY TAIL) Speech: Other (CIRCUMSTANTIAL) Eye Contact: Other (INTERMITTENT) Motor Activity: Normal Affect: Constricted Orientation Impairment: None Memory Impairment: None Attention: Normal Hallucinations: None Other: None Suicidality: None Homicidality: None Delusions: None Behavior: Cooperative Insight: Poor Judgment: Poor Treatment ABILIFY 5 MG P.O. DAILY ZOLOFT 100 MG P.O. Q.H.S. OLANZAPINE 20 MG P.O. Q.H.S. Monitoring by Staff, Milieu, Group, and Individual counseling as needed -- According to the [place] Suicide Assessment the above named patient is on Q 15 MINUTE CHECKS. [id number]-Patient is unable to formulate a plan to safely meet their basic needs of food, clothing, and fpc due to the severity of their mental illness. We are still titrating medications to an effective dose while maintaining a therapeutic environment to prevent decompensation and readmission. REVIEW OF Clinical notes [X ] RN notes [X] PCT documentation [X] SW notes Labs [ X] Medications [X] Care trends/care activity [X] Vitals [X] DISCUSSION WITH advertising sales representative [X] Staff SW [X] Treatment Team [X] Discharge UNSURE AT THIS TIME. TCON CODING VISIT-PSYCHIATRY Date of Service: Aug 27, 2024 Billing Provider: KERRIE RIZO APRN Psych Common Visit Codes: [id number] INP/OBS CARE(Low) KERRIE RIZO APRN Aug 27, 2024 15:43
[2024-08-27 19:00] VITALS: RESP 15; O2SAT 97
[2024-08-27 20:00] VITALS: BP 65/42; PULSE 106; RESP 17; TEMP 98
[2024-08-27 23:05] VITALS: BP 109/77; PULSE 105; RESP 20; O2SAT 98
[2024-08-28 07:42] LABS: ALANINE AMINOTRANSFERASE 301 U/L (12-78); ALBUMIN 2.8 G/DL (3.4-5.0); ALKALINE PHOSPHATASE 532 IU/L (46-116); ANION GAP 7 (8-16); ASPARTATE AMINO TRANSFERASE 186 U/L (10-37); BILIRUBIN,TOTAL 4.9 MG/DL (0.1-1.0); BLOOD UREA NITROGEN 12 MG/DL (7-18); BUN/CREATININE RATIO 13.6 (10.0-20.0); CALCIUM 8.9 MG/DL (8.5-10.1); CHLORIDE 93 MMOL/L (99-107); CREATININE 0.88 MG/DL (0.40-0.90); GLUCOSE 124 MG/DL (70-104); POTASSIUM 3.1 MMOL/L (3.5-5.1); SODIUM 132 MMOL/L (135-145); eCRCL 56 ML/MIN; eGFR 66 ML/MIN
[2024-08-28 07:43] LABS: ALBUMIN/GLOBULIN RATIO 0.8 (1.1-1.5); TOTAL PROTEIN 6.2 G/DL (6.4-8.2)
[2024-08-28 08:00] VITALS: BP 92/67; PULSE 88; RESP 18; TEMP 98; O2SAT 97
[2024-08-28] MEDS: nicotine 14mg patch - 24hr TD SCH (08:03)
[2024-08-28] MEDS: potassium Cl 20 mEq SR tablet PO PRN (08:04)
--- NOTE | 2024-08-28 12:05 | PROGRESS NOTE ---
Progress Note Dictate Providers to CC ~ Central Line/PICC still needed: N\\A Antibiotic Ordered?: No MRSA Education MRSA Education Provided to pt: No Objective Vitals Vital Signs Date Time Temp Pulse Resp B/P (MAP) Pulse Ox O2 Delivery O2 Flow Rate FiO2 08/28/24 08:00 98.0 88 18 92/67 (75) 97 Room Air Lab Results: 08/25/24 1113 08/28/24 0703 Counseling Services Smoking & Tobacco Cessation: > 10 Minutes Problem\\Assessment\\Plan Problems/Diagnosis: (1) Schizoaffective disorder, bipolar type (2) Gravely disabled Psychiatrist's Progress Note Date of Service: Aug 28, 2024 Notes CHART REVIEW Kia is a 55-year-old female on the medical floor of [facility] referred for a mental health evaluation. Toxicology report positive for THC. Kia is an active client of [facility]. Per [place] clinician, client has been decompensating over the past three months. Reporting that she had not been letting them into her home, most recent visitation clinician discovered home to be an unlivable declined. She stated that the client although reporting she has been eating and has food in her home, this information is boss, and client's physical well-being and weight loss is evident, and evidence verify and there is no food in the home. Client lives on her own in his uncertain if she has been able to maintain a medication regiment. ASSESSMENT The patient is interviewed in observation room. Patient seen actively sitting up in bed. The patient endorses "fine." The patient endorses no worsening mental health symptoms. Denies SI. Denies HI. Denies AVH. Patient endorses adequate sleep and food intake. The patient is stable no acute distress noted. The patient is calm, cooperative, and engaged during session. Per staff report no behavior issues. Per staff report patient is compliant with medication regimen. Per report patient is self isolates. Patient encouraged to participate in unit/group activities daily. Will continue daily assessment and adjusting treatment as needed. Closely monitor behavior and response to medication during hospitalization Results Of any Diagn. Testing REVIEW OF LABS WBC 5.8 RBC 3.57 HEMOGLOBIN 13.3 HEMATOCRIT 39.0 PLATELET COUNT 262 SODIUM 129 POTASSIUM 3.6 ANION GAP11 BUN 21 CREATININE 1.66 HEMOGLOBIN A1C 5.4 CALCIUM 9.2 LITHIUM 2.1 ALBUMIN 3.4 TRIGLYCERIDES 143 CHOLESTEROL 240 LDL 136 HDL 73 TSH 0.48 URINE DRUG SCREEN POSITIVE FOR CANNABIS URINE ANALYSIS NEGATIVE Appearnace: Other (APPROPRIATE. AVERAGE HEIGHT THIN FEMALE. WEARING GREEN SCRUBS. BLONDE GRAYING HAIR PULLED BACK IN A PONY TAIL) Speech: Other (CIRCUMSTANTIAL) Eye Contact: Normal Motor Activity: Normal Affect: Constricted Orientation Impairment: None Memory Impairment: None Attention: Normal Hallucinations: None Other: None Suicidality: None Homicidality: None Delusions: None Behavior: Cooperative Insight: Poor Judgment: Poor Treatment ABILIFY 5 MG P.O. DAILY ZOLOFT 100 MG P.O. Q.H.S. OLANZAPINE 20 MG P.O. Q.H.S. Monitoring by Staff, Milieu, Group, and Individual counseling as needed -- According to the [place] Suicide Assessment the above named patient is on Q 15 MINUTE CHECKS. [id number]-Patient is unable to formulate a plan to safely meet their basic needs of food, clothing, and assisted due to the severity of their mental illness. We are still titrating medications to an effective dose while maintaining a therapeutic environment to prevent decompensation and readmission. REVIEW OF Clinical notes [X ] RN notes [X] PCT documentation [X] SW notes Labs [ X] Medications [X] Care trends/care activity [X] Vitals [X] DISCUSSION WITH fur grader [X] Staff SW [X] Treatment Team [X] Discharge UNSURE AT THIS TIME. TCON CODING VISIT-PSYCHIATRY Date of Service: Aug 28, 2024 Billing Provider: KERRIE RIZO APRN Psych Common Visit Codes: [id number] INP/OBS CARE(Low) KERRIE RIZO APRN Aug 28, 2024 12:05
--- NOTE | 2024-08-28 16:19 | PROGRESS NOTE ---
Daily Progress Note Providers to CC ~ Antibiotic Timeout Antibiotic Ordered?: No Subjective This is the hospitalist progress note on patients hospitalized at [facility] [place] [facility]. Patient was sitting up in bed with a emesis basin there was scant amount of emesis in the emesis basin. The patient's bilirubin and alk phosphatase are up trending. Her serum potassium level today is 3.1. Daily CMPs are ordered. The patient was adamant that she was not going to take gabapentin as this could "damage my heart" Objective Vital Signs Date Time Temp Pulse Resp B/P (MAP) Pulse Ox O2 Delivery O2 Flow Rate FiO2 08/28/24 08:00 98.0 88 18 92/67 (75) 97 Room Air Result Diagram: 08/25/24 1113 08/28/24 0703 Gen. No acute distress alert and oriented Lungs clear to ascultation bilaterally, no wheezes rales or rhonchi appreciated Heart normal sinus rhythm no murmurs rubs or clicks noted Abdomen soft nontender bowel sounds are normoactive Lower extremities no clubbing cyanosis, nor edema appreciated bilaterally Problem\\Assessment\\Plan Problems/Diagnosis: (1) Bipolar 1 disorder # bipolar disorder- on a 5150 due to being gravely disabled Psychiatry following # 4.8 x 8.5 x 7.6 cm irregular heterogeneous mass with central hypodense area along the body of the pancreas. I informed the patient that this could be either a primary pancreatic malignancy versus a collection of matted lymph nodes which Elenita Izaguirre clinical psychology teacher contacted pt's oncology office of Dr Martinez and faxed over the CT scan results and was informed that the patient needs to follow up in the office and likely change her chemo therapy regimen unfortunately the patient is awaiting for an LPS conservatorship. # bone and lung cancer We will need to follow up with Oncology once no longer hospitalized on a 5150 # significant constipation with secondary nausea and vomiting- ordered KUB today # hypokalemia- daily CMP is ordered on the potassium replacement protocol # acute kidney injury Likely secondary to dehydration due to vomiting Significantly improved # gastritis- Maalox as ordered P.r.n. Zofran and p.r.n. Compazine #Hyponatremia-improved # Tobacco abuse-I spent 12 minutes discussing smoking cessation with the patient including the risk of continuing smoke: Lung cancer, stroke, heart attack, poor wound healing, increased in facial wrinkling, cigarette smoke also leads a foul smell on clothing and fabrics, risk of MRSA skin infections. The expense of smoking cigarettes and how cigarettes have been scientifically engineered to be as addictive as humanly possible. The patient has accepted PRN nicotine lozenges and a 21 mg nicotine patch Patient's current condition is likely terminal if she does not get the follow up with Oncology Hospitalist team will continue to follow the patient while hospitalized at [facility] Date of Service: Aug 28, 2024 Billing Provider: DAWN SALCEDO DO Common Visit Codes: [id number] INP/OBS CARE(HIGH) DAWN SALCEDO DO Aug 28, 2024 16:19
[2024-08-28 19:00] VITALS: RESP 14; O2SAT 98
[2024-08-28 20:00] VITALS: BP 113/71; PULSE 111; RESP 14; TEMP 98.2
[2024-08-28] MEDS ORDERED: potassium Cl 20 mEq SR tablet PO PRN (21:40)
[2024-08-28 23:55] VITALS: BP 113/71; PULSE 111; RESP 14; TEMP 98.2
[2024-08-29 07:00] VITALS: RESP 20; O2SAT 96
--- NOTE | 2024-08-29 07:15 | PROGRESS NOTE ---
Progress Note Dictate Providers to CC ~ Central Line/PICC still needed: N\\A Antibiotic Ordered?: No MRSA Education MRSA Education Provided to pt: No Objective Vitals Vital Signs Date Time Temp Pulse Resp B/P (MAP) Pulse Ox O2 Delivery O2 Flow Rate FiO2 08/28/24 20:00 98.2 111 14 113/71 (85) Room Air 08/28/24 19:00 98 Lab Results: 08/25/24 1113 08/28/24 0703 Counseling Services Smoking & Tobacco Cessation: > 10 Minutes Problem\\Assessment\\Plan Problems/Diagnosis: (1) Schizoaffective disorder, bipolar type (2) Gravely disabled Psychiatrist's Progress Note Date of Service: Aug 29, 2024 Notes CHART REVIEW Kia is a 55-year-old female on the medical floor of [facility] referred for a mental health evaluation. Toxicology report positive for THC. Kia is an active client of [facility]. Per [place] clinician, client has been decompensating over the past three months. Reporting that she had not been letting them into her home, most recent visitation clinician discovered home to be an unlivable declined. She stated that the client although reporting she has been eating and has food in her home, this information is boss, and client's physical well-being and weight loss is evident, and evidence verify and there is no food in the home. Client lives on her own in his uncertain if she has been able to maintain a medication regiment. ASSESSMENT The patient is interviewed in observation room. Patient seen actively sitting up in bed. The patient endorses "fine." "I need to make sure my stuff is okay at my house." The patient endorses no worsening mental health symptoms. Denies SI. Denies HI. Denies AVH. Patient endorses adequate sleep and food intake. The patient is stable no acute distress noted. The patient is calm, cooperative, and engaged during session. Per staff report no behavior issues. Per staff report patient is compliant with medication regimen. Per report patient is self isolates. Patient encouraged to participate in unit/group activities daily. Will continue daily assessment and adjusting treatment as needed. Closely monitor behavior and response to medication during hospitalization Results Of any Diagn. Testing REVIEW OF LABS WBC 5.8 RBC 3.57 HEMOGLOBIN 13.3 HEMATOCRIT 39.0 PLATELET COUNT 262 SODIUM 129 POTASSIUM 3.6 ANION GAP11 BUN 21 CREATININE 1.66 HEMOGLOBIN A1C 5.4 CALCIUM 9.2 LITHIUM 2.1 ALBUMIN 3.4 TRIGLYCERIDES 143 CHOLESTEROL 240 LDL 136 HDL 73 TSH 0.48 URINE DRUG SCREEN POSITIVE FOR CANNABIS URINE ANALYSIS NEGATIVE Appearnace: Disheveled (AVERAGE HEIGHT THIN FEMALE. WEARING GREEN SCRUBS. BLONDE GRAYING HAIR PULLED BACK IN A PONY TAIL) Speech: Other (CIRCUMSTANTIAL) Eye Contact: Normal Motor Activity: Normal Affect: Flat Orientation Impairment: None Memory Impairment: None Attention: Normal Hallucinations: None Other: None Suicidality: None Homicidality: None Delusions: None Behavior: Cooperative Insight: Poor Judgment: Poor Treatment ABILIFY 5 MG P.O. DAILY ZOLOFT 100 MG P.O. Q.H.S. OLANZAPINE 20 MG P.O. Q.H.S. Monitoring by Staff, Milieu, Group, and Individual counseling as needed -- According to the [place] Suicide Assessment the above named patient is on Q 15 MINUTE CHECKS. [id number]-Patient is unable to formulate a plan to safely meet their basic needs of food, clothing, and usp due to the severity of their mental illness. We are still titrating medications to an effective dose while maintaining a therapeutic environment to prevent decompensation and readmission. REVIEW OF Clinical notes [X ] RN notes [X] PCT documentation [X] SW notes Labs [ X] Medications [X] Care trends/care activity [X] Vitals [X] DISCUSSION WITH wheel press operator [X] Staff SW [X] Treatment Team [X] Discharge UNSURE AT THIS TIME. TCON CODING VISIT-PSYCHIATRY Date of Service: Aug 29, 2024 Billing Provider: KERRIE RIZO APRN Psych Common Visit Codes: [id number] INP/OBS CARE(Mod) KERRIE RIZO APRN Aug 29, 2024 07:15
[2024-08-29 08:00] VITALS: BP 104/71; PULSE 100; RESP 20; TEMP 96.3; O2SAT 96
[2024-08-29] MEDS ORDERED: lactose-reduced food (Ensure Enlive) - 237ml bottle PO SCH (08:00)
[2024-08-29 08:14] LABS: ALANINE AMINOTRANSFERASE 261 U/L (12-78); ALBUMIN 2.9 G/DL (3.4-5.0); ALKALINE PHOSPHATASE 580 IU/L (46-116); ANION GAP 7 (8-16); ASPARTATE AMINO TRANSFERASE 164 U/L (10-37); BILIRUBIN,TOTAL 5.8 MG/DL (0.1-1.0); BLOOD UREA NITROGEN 8 MG/DL (7-18); CALCIUM 8.9 MG/DL (8.5-10.1); CHLORIDE 92 MMOL/L (99-107); CREATININE 0.89 MG/DL (0.40-0.90); GLUCOSE 110 MG/DL (70-104); LIPASE 28 U/L (16-77); MAGNESIUM 2.4 MG/DL (1.5-2.4); POTASSIUM 3.7 MMOL/L (3.5-5.1); SODIUM 131 MMOL/L (135-145); TOTAL CARBON DIOXIDE 32.2 MMOL/L (24-32); eCRCL 56 ML/MIN; eGFR 66 ML/MIN
[2024-08-29 08:25] LABS: ALBUMIN/GLOBULIN RATIO 0.8 (1.1-1.5); TOTAL PROTEIN 6.4 G/DL (6.4-8.2)
[2024-08-29] MEDS: lactose-reduced food (Ensure Enlive) - 237ml bottle PO SCH (13:31)
[2024-08-29 20:17] VITALS: BP 109/66; PULSE 105; RESP 15; TEMP 98.3
[2024-08-30 06:34] LABS: ALANINE AMINOTRANSFERASE 218 U/L (12-78); ALBUMIN 2.6 G/DL (3.4-5.0); ALKALINE PHOSPHATASE 568 IU/L (46-116); ANION GAP 7 (8-16); ASPARTATE AMINO TRANSFERASE 159 U/L (10-37); BILIRUBIN,TOTAL 6.1 MG/DL (0.1-1.0); BLOOD UREA NITROGEN 13 MG/DL (7-18); BUN/CREATININE RATIO 16.3 (10.0-20.0); CALCIUM 8.9 MG/DL (8.5-10.1); CHLORIDE 93 MMOL/L (99-107); GLUCOSE 97 MG/DL (70-104); MAGNESIUM 2.6 MG/DL (1.5-2.4); SODIUM 132 MMOL/L (135-145); TOTAL CARBON DIOXIDE 32.3 MMOL/L (24-32); eCRCL 63 ML/MIN; eGFR 74 ML/MIN
[2024-08-30 06:37] LABS: ALBUMIN/GLOBULIN RATIO 0.8 (1.1-1.5); POTASSIUM 3.4 MMOL/L (3.5-5.1)
[2024-08-30 07:22] VITALS: RESP 18
[2024-08-30 07:30] VITALS: BP 101/68; PULSE 108; RESP 16; TEMP 97; O2SAT 97
--- NOTE | 2024-08-30 13:07 | PROGRESS NOTE ---
Progress Note Dictate Providers to CC ~ Central Line/PICC still needed: N\\A Antibiotic Ordered?: No MRSA Education MRSA Education Provided to pt: No Objective Vitals Vital Signs Date Time Temp Pulse Resp B/P (MAP) Pulse Ox O2 Delivery O2 Flow Rate FiO2 08/30/24 07:30 97.0 108 16 101/68 (79) 97 Room Air Lab Results: 08/30/24 0559 Problem\\Assessment\\Plan Problems/Diagnosis: (1) Schizoaffective disorder, bipolar type (2) Gravely disabled Psychiatrist's Progress Note Date of Service: Aug 30, 2024 Notes CHART REVIEW Kia is a 55-year-old female on the medical floor of [facility] referred for a mental health evaluation. Toxicology report positive for THC. Kia is an active client of [facility]. Per [place] clinician, client has been decompensating over the past three months. Reporting that she had not been letting them into her home, most recent visitation clinician discovered home to be an unlivable declined. She stated that the client although reporting she has been eating and has food in her home, this information is boss, and client's physical well-being and weight loss is evident, and evidence verify and there is no food in the home. Client lives on her own in his uncertain if she has been able to maintain a medication regiment. ASSESSMENT The patient is interviewed in observation room. Patient seen actively walking in hallway. The patient endorses "Good." The patient endorses no worsening mental health symptoms. Denies SI. Denies HI. Denies AVH. Patient endorses adequate sleep and food intake. The patient is stable no acute distress noted. The patient is calm, cooperative, and engaged during session. Per staff report no behavior issues. Per staff report patient is compliant with medication regimen. Will continue daily assessment and adjusting treatment as needed. Closely monitor behavior and response to medication during hospitalization Results Of any Diagn. Testing REVIEW OF LABS WBC 5.8 RBC 3.57 HEMOGLOBIN 13.3 HEMATOCRIT 39.0 PLATELET COUNT 262 SODIUM 129 POTASSIUM 3.6 ANION GAP11 BUN 21 CREATININE 1.66 HEMOGLOBIN A1C 5.4 CALCIUM 9.2 LITHIUM 2.1 ALBUMIN 3.4 TRIGLYCERIDES 143 CHOLESTEROL 240 LDL 136 HDL 73 TSH 0.48 URINE DRUG SCREEN POSITIVE FOR CANNABIS URINE ANALYSIS NEGATIVE Appearnace: Other (AVERAGE HEIGHT THIN FEMALE. WEARING GREEN SCRUBS. BLONDE GRAYING HAIR PULLED BACK IN A PONY TAIL) Speech: Other (CIRCUMSTANTIAL) Eye Contact: Other (INTERMITTENT) Motor Activity: Normal Affect: Constricted Orientation Impairment: None Memory Impairment: None Attention: Normal Hallucinations: None Other: None Suicidality: None Homicidality: None Delusions: None Behavior: Cooperative Insight: Poor Judgment: Poor Treatment ABILIFY 5 MG P.O. DAILY ZOLOFT 100 MG P.O. Q.H.S. OLANZAPINE 20 MG P.O. Q.H.S. Monitoring by Staff, Milieu, Group, and Individual counseling as needed -- According to the [place] Suicide Assessment the above named patient is on Q 15 MINUTE CHECKS. [id number]-Patient is unable to formulate a plan to safely meet their basic needs of food, clothing, and penitentiary due to the severity of their mental illness. We are still titrating medications to an effective dose while maintaining a therapeutic environment to prevent decompensation and readmission. REVIEW OF Clinical notes [X ] RN notes [X] PCT documentation [X] SW notes Labs [ X] Medications [X] Care trends/care activity [X] Vitals [X] DISCUSSION WITH prescription benefit specialist [X] Staff SW [X] Treatment Team [X] Discharge UNSURE AT THIS TIME. TCON CODING VISIT-PSYCHIATRY Date of Service: Aug 30, 2024 Billing Provider: KERRIE RIZO APRN Psych Common Visit Codes: [id number] INP/OBS CARE(Low) KERRIE RIZO APRN Aug 30, 2024 13:07
--- NOTE | 2024-08-30 18:18 | PROGRESS NOTE ---
Daily Progress Note Providers to CC ~ Antibiotic Timeout Antibiotic Ordered?: No Subjective Patient was seen in her room she mentioned her emesis episodes less now denied any pain over abdomen. Cooperated well during physical examination. Patient is feeling dizzy when she walks. It is strongly recommended to the patient to walk with the help of walker and to follow fall precautions Objective Vital Signs Date Time Temp Pulse Resp B/P (MAP) Pulse Ox O2 Delivery O2 Flow Rate FiO2 08/30/24 07:30 97.0 108 16 101/68 (79) 97 Room Air Result Diagram: 08/30/24 0559 General-patient not in any acute distress, awake chronically ill-appearing HEENT-atraumatic normocephalic, neck supple without elevated JVD, no thyromegaly or carotid bruit. No lymphadenopathy bilaterally. Eyes-no icterus or pallor seen in eyes Chest-clear to auscultation bilaterally, breathing nonlabored no tachypnea, no wheezing, no crepitation, no crackles. Heart-S1-S2 normal, regular heart rate no murmur Abdomen bowel sounds positive on auscultation, soft nondistended , signs of subjective discomfort, present over abdomen no guarding, no rigidity Skin no active skin rash Neurology-grossly intact, nonfocal alert awake oriented Extremity- no pedal edema able to move all 4 extremities Psychiatry - patient is not confused or agitated cooperated during physical examination Problem\Assessment\Plan Problems/Diagnosis: (1) Bipolar 1 disorder # bipolar disorder- on a 5150 due to being gravely disabled Psychiatry following # 4.8 x 8.5 x 7.6 cm irregular heterogeneous mass with central hypodense area along the body of the pancreas. Dr Romero informed the patient that this could be either a primary pancreatic malignancy versus a collection of matted lymph nodes which Elenita Izaguirre vocational psychologist contacted pt's oncology office of Dr Martinez and faxed over the CT scan results and was informed that the patient needs to follow up in the office and likely change her chemo therapy regimen unfortunately the patient is awaiting for an LPS conservatorship. # bone and lung cancer We will need to follow up with Oncology once no longer hospitalized on a 5150 # significant constipation with secondary nausea and vomiting- ordered KUB today # hypokalemia- daily CMP is ordered on the potassium replacement protocol # acute kidney injury Likely secondary to dehydration due to vomiting Significantly improved # gastritis- Maalox as ordered P.r.n. Zofreldon and p.r.n. Compazine #Hyponatremia-improved # Tobacco abuse- smoking cessation discussed with the patient by Dr Romero . The patient has accepted PRN nicotine lozenges and a 21 mg nicotine patch Patient's current condition is likely terminal if she does not get the follow up with Oncology Hospitalist team will continue to follow the patient while hospitalized at [facility] Date of Service: Aug 30, 2024 Billing Provider: ELÍAS SNOW MD Common Visit Codes: [id number] INP/OBS CARE(HIGH) ELÍAS SNOW MD Aug 30, 2024 18:18
[2024-08-30 19:00] VITALS: RESP 16; O2SAT 98
[2024-08-30 19:47] VITALS: BP 105/68; PULSE 110; RESP 16; TEMP 97.6; O2SAT 98
[2024-08-31 06:35] VITALS: RESP 18
--- NOTE | 2024-08-31 06:47 | PROGRESS NOTE ---
Progress Note Dictate Providers to CC ~ Central Line/PICC still needed: N\\A Antibiotic Ordered?: No MRSA Education MRSA Education Provided to pt: No Objective Vitals Vital Signs Date Time Temp Pulse Resp B/P (MAP) Pulse Ox O2 Delivery O2 Flow Rate FiO2 08/30/24 19:47 97.6 110 16 105/68 (80) 98 Room Air Lab Results: 08/30/24 0559 Counseling Services Smoking & Tobacco Cessation: > 10 Minutes Problem\\Assessment\\Plan Problems/Diagnosis: (1) Schizoaffective disorder, bipolar type (2) Gravely disabled Psychiatrist's Progress Note Date of Service: Aug 31, 2024 Notes CHART REVIEW Kia is a 55-year-old female on the medical floor of [facility] referred for a mental health evaluation. Toxicology report positive for THC. Kia is an active client of [facility]. Per [place] clinician, client has been decompensating over the past three months. Reporting that she had not been letting them into her home, most recent visitation clinician discovered home to be an unlivable declined. She stated that the client although reporting she has been eating and has food in her home, this information is boss, and client's physical well-being and weight loss is evident, and evidence verify and there is no food in the home. Client lives on her own in his uncertain if she has been able to maintain a medication regiment. ASSESSMENT The patient is interviewed in observation room. Patient seen actively sitting up in bed. The patient endorses "I am doing okay." The patient endorses she was nauseated today. The patient endorses no worsening mental health symptoms. Denies SI. Denies HI. Denies AVH. Patient endorses adequate sleep and food intake. The patient is stable no acute distress noted. The patient is calm, cooperative, and engaged during session. Per staff report no behavior issues. Per staff report patient is compliant with medication regimen. Will continue daily assessment and adjusting treatment as needed. Closely monitor behavior and response to medication during hospitalization Per note, Kia has an oncology appointment on 09/03/24 at 3 PM with the doctor. She has an appointment for her xgeva injection at 3:30 PM the same day. Her behavioral health case manager on the [place] team, Gretchen ([phone]), will pick her up around 2:30 PM for the appointment. Results Of any Diagn. Testing REVIEW OF LABS WBC 5.8 RBC 3.57 HEMOGLOBIN 13.3 HEMATOCRIT 39.0 PLATELET COUNT 262 SODIUM 129 POTASSIUM 3.6 ANION GAP11 BUN 21 CREATININE 1.66 HEMOGLOBIN A1C 5.4 CALCIUM 9.2 LITHIUM 2.1 ALBUMIN 3.4 TRIGLYCERIDES 143 CHOLESTEROL 240 LDL 136 HDL 73 TSH 0.48 URINE DRUG SCREEN POSITIVE FOR CANNABIS URINE ANALYSIS NEGATIVE Appearnace: Other (AVERAGE HEIGHT THIN FEMALE. WEARING GREEN SCRUBS. BLONDE GRAYING HAIR PULLED BACK IN A PONY TAIL) Speech: Other (CIRCUMSTANTIAL) Eye Contact: Other (INTERMITTENT) Motor Activity: Normal Affect: Constricted Orientation Impairment: None Memory Impairment: None Attention: Normal Hallucinations: None Other: None Suicidality: None Homicidality: None Delusions: None Behavior: Cooperative Insight: Poor Judgment: Poor Treatment ABILIFY 5 MG P.O. DAILY ZOLOFT 100 MG P.O. Q.H.S. OLANZAPINE 20 MG P.O. Q.H.S. Monitoring by Staff, Milieu, Group, and Individual counseling as needed -- According to the [place] Suicide Assessment the above named patient is on Q 15 MINUTE CHECKS. [id number]-Patient is unable to formulate a plan to safely meet their basic needs of food, clothing, and usp due to the severity of their mental illness. We are still titrating medications to an effective dose while maintaining a therapeutic environment to prevent decompensation and readmission. REVIEW OF Clinical notes [X ] RN notes [X] PCT documentation [X] SW notes Labs [ X] Medications [X] Care trends/care activity [X] Vitals [X] DISCUSSION WITH network development coordinator [X] Staff SW [X] Treatment Team [X] Discharge UNSURE AT THIS TIME. TCON CODING VISIT-PSYCHIATRY Date of Service: Aug 31, 2024 Billing Provider: KERRIE RIZO APRN Psych Common Visit Codes: [id number] INP/OBS CARE(Low) KERRIE RIZO APRN Aug 31, 2024 06:47
[2024-08-31 07:31] LABS: ALANINE AMINOTRANSFERASE 202 U/L (12-78); ALBUMIN 2.8 G/DL (3.4-5.0); ALKALINE PHOSPHATASE 598 IU/L (46-116); ANION GAP 5 (8-16); ASPARTATE AMINO TRANSFERASE 150 U/L (10-37); BILIRUBIN,TOTAL 6.9 MG/DL (0.1-1.0); BLOOD UREA NITROGEN 17 MG/DL (7-18); BUN/CREATININE RATIO 19.8 (10.0-20.0); CALCIUM 9.2 MG/DL (8.5-10.1); CHLORIDE 94 MMOL/L (99-107); CREATININE 0.86 MG/DL (0.40-0.90); GLUCOSE 100 MG/DL (70-104); MAGNESIUM 2.6 MG/DL (1.5-2.4); POTASSIUM 3.3 MMOL/L (3.5-5.1); SODIUM 131 MMOL/L (135-145); TOTAL CARBON DIOXIDE 32.1 MMOL/L (24-32); eCRCL 58 ML/MIN; eGFR 68 ML/MIN
[2024-08-31 07:33] VITALS: BP 106/72; PULSE 110; RESP 16; TEMP 97.9; O2SAT 98
[2024-08-31 08:07] LABS: ALBUMIN/GLOBULIN RATIO 0.8 (1.1-1.5); TOTAL PROTEIN 6.3 G/DL (6.4-8.2)
[2024-08-31] MEDS ORDERED: potassium Cl 40MEQ/1/2NS 520ml 520 ML IV PRN (12:10)
[2024-08-31] MEDS ORDERED: magnesium sulf-water 2g/50mL 50 ML IV PRN (12:10)
[2024-08-31] MEDS ORDERED: potassium Cl 20 mEq SR tablet PO PRN (12:10)
[2024-08-31] MEDS ORDERED: magnesium sulf-water 4G/100mL 100 ML IV PRN (12:10)
[2024-08-31] MEDS ORDERED: magnesium Cl slow-release 64mg tablet PO PRN (12:10)
[2024-08-31] MEDS: UREA 15GM/PACKET 15 GM POWD.PACK PO SCH (16:56)
[2024-08-31 19:00] VITALS: RESP 14; O2SAT 97
[2024-08-31 20:00] VITALS: BP 92/56; PULSE 95; RESP 14; TEMP 98; O2SAT 97
[2024-08-31] MEDS: potassium Cl 20 mEq SR tablet PO PRN (20:26)
[2024-08-31] MEDS: K and/or MAG REPLACEMENT MC SCH (20:27)
[2024-09-01 07:32] VITALS: RESP 16
[2024-09-01 08:00] VITALS: BP 102/60; PULSE 74; RESP 16; TEMP 98.3; O2SAT 100
[2024-09-01 08:03] LABS: ALANINE AMINOTRANSFERASE 174 U/L (12-78); ALBUMIN 2.7 G/DL (3.4-5.0); ALBUMIN/GLOBULIN RATIO 0.8 (1.1-1.5); ALKALINE PHOSPHATASE 571 IU/L (46-116); ANION GAP 6 (8-16); ASPARTATE AMINO TRANSFERASE 140 U/L (10-37); BILIRUBIN,TOTAL 7.5 MG/DL (0.1-1.0); BLOOD UREA NITROGEN 20 MG/DL (7-18); CALCIUM 8.9 MG/DL (8.5-10.1); CHLORIDE 93 MMOL/L (99-107); CREATININE 0.77 MG/DL (0.40-0.90); GLUCOSE 116 MG/DL (70-104); POTASSIUM 3.2 MMOL/L (3.5-5.1); SODIUM 131 MMOL/L (135-145); TOTAL CARBON DIOXIDE 32.1 MMOL/L (24-32); TOTAL PROTEIN 6.1 G/DL (6.4-8.2); eCRCL 65 ML/MIN; eGFR 78 ML/MIN
[2024-09-01] MEDS ORDERED: POTASSIUM CHLORIDE 20 MEQ/15 ML oral solution PO PRN ×2 (08:25→08:26)
[2024-09-01 14:40] LABS: BASOPHILS % (AUTO) 0.2 % (0-1); EOSINOPHILS # (AUTO) 0.1 X10'3 (0-0.9); EOSINOPHILS % (AUTO) 0.9 % (0-6); HEMATOCRIT 31.7 % (35.0-45.0); LYMPHOCYTES # (AUTO) 1.1 X10'3 (1.1-4.8); LYMPHOCYTES % (AUTO) 12.1 % (21-51); MEAN CORPUSCULAR HEMOGLOBIN 36.4 PG (27.0-31.0); MEAN CORPUSCULAR HGB CONC 34.7 g/dL (33.0-36.5); MEAN PLATELET VOLUME 7.8 FL (7.4-10.4); MONOCYTES # (AUTO) 1.1 X10'3 (0-0.9); MONOCYTES % (AUTO) 12.1 % (2-12); NEUTROPHILS # (AUTO) 6.7 X10'3 (1.8-7.7); NEUTROPHILS % (AUTO) 74.7 % (42-75); PLATELET COUNT 314 X10'3 (140-440); RED BLOOD COUNT 3.01 X10'6 (4.20-5.60); RED CELL DISTRIBUTION WIDTH 14.4 % (11.5-14.5)
[2024-09-01 15:01] LABS: TOTAL CELLS COUNTED 100
[2024-09-01 15:02] LABS: LARGE PLATELETS FEW; PLATELET ESTIMATE NORMAL
--- NOTE | 2024-09-01 15:08 | PROGRESS NOTE ---
Progress Note Dictate Providers to CC ~ Central Line/PICC still needed: N\\A Antibiotic Ordered?: No MRSA Education MRSA Education Provided to pt: No Objective Vitals Vital Signs Date Time Temp Pulse Resp B/P (MAP) Pulse Ox O2 Delivery O2 Flow Rate FiO2 09/01/24 08:00 98.3 74 16 102/60 (74) 100 Room Air Lab Results: 09/01/24 1425 09/01/24 0718 Problem\\Assessment\\Plan Problems/Diagnosis: (1) Schizoaffective disorder, bipolar type (2) Gravely disabled Psychiatrist's Progress Note Date of Service: Sep 01, 2024 Notes CHART REVIEW Kia is a 55-year-old female on the medical floor of [facility] referred for a mental health evaluation. Toxicology report positive for THC. Kia is an active client of [facility]. Per [place] clinician, client has been decompensating over the past three months. Reporting that she had not been letting them into her home, most recent visitation clinician discovered home to be an unlivable declined. She stated that the client although reporting she has been eating and has food in her home, this information is boss, and client's physical well-being and weight loss is evident, and evidence verify and there is no food in the home. Client lives on her own in his uncertain if she has been able to maintain a medication regiment. ASSESSMENT The patient is interviewed in observation room. Patient seen actively sitting up in bed. The patient endorses "Loly." The patient endorses no worsening mental health symptoms. Denies SI. Denies HI. Denies AVH. Patient endorses adequate sleep and food intake. The patient is stable no acute distress noted. The patient is calm, cooperative, and engaged during session. Per staff report no behavior issues. Per staff report patient is compliant with medication regimen. Will continue daily assessment and adjusting treatment as needed. Closely monitor behavior and response to medication during hospitalization Results Of any Diagn. Testing REVIEW OF LABS WBC 5.8 RBC 3.57 HEMOGLOBIN 13.3 HEMATOCRIT 39.0 PLATELET COUNT 262 SODIUM 129 POTASSIUM 3.6 ANION GAP11 BUN 21 CREATININE 1.66 HEMOGLOBIN A1C 5.4 CALCIUM 9.2 LITHIUM 2.1 ALBUMIN 3.4 TRIGLYCERIDES 143 CHOLESTEROL 240 LDL 136 HDL 73 TSH 0.48 URINE DRUG SCREEN POSITIVE FOR CANNABIS URINE ANALYSIS NEGATIVE Appearnace: Other (AVERAGE HEIGHT THIN FEMALE. WEARING GREEN SCRUBS. BLONDE GRAYING HAIR PULLED BACK IN A PONY TAIL) Speech: Other (CIRCUMSTANTIAL) Eye Contact: Other (INTERMITTENT) Motor Activity: Normal Affect: Constricted Memory Impairment: None Attention: Normal Hallucinations: None Other: None Suicidality: None Homicidality: None Delusions: None Behavior: Cooperative Insight: Poor Judgment: Poor Treatment ABILIFY 5 MG P.O. DAILY ZOLOFT 100 MG P.O. Q.H.S. OLANZAPINE 20 MG P.O. Q.H.S. Monitoring by Staff, Milieu, Group, and Individual counseling as needed -- According to the [place] Suicide Assessment the above named patient is on Q 15 MINUTE CHECKS. [id number]-Patient is unable to formulate a plan to safely meet their basic needs of food, clothing, and senior care due to the severity of their mental illness. We are still titrating medications to an effective dose while maintaining a therapeutic environment to prevent decompensation and readmission. REVIEW OF Clinical notes [X ] RN notes [X] PCT documentation [X] SW notes Labs [ X] Medications [X] Care trends/care activity [X] Vitals [X] DISCUSSION WITH mainframe systems programmer [X] Staff SW [X] Treatment Team [X] Discharge UNSURE AT THIS TIME. TCON CODING VISIT-PSYCHIATRY Date of Service: Sep 01, 2024 Billing Provider: KERRIE RIZO APRN Psych Common Visit Codes: [id number] INP/OBS CARE(Low) KERRIE RIZO APRN Sep 01, 2024 15:08
--- NOTE | 2024-09-01 18:54 | PROGRESS NOTE ---
Daily Progress Note Providers to CC ~ Antibiotic Timeout Antibiotic Ordered?: No Subjective Patient is seen in mental health unit in presence of mental health nursing staff. Patient is able to ambulate without any assistance. Patient is able to engage in conversation. Patient denied any "esophagus pressure," to me she mentioned that she has pain both sides of her belly around umbilical area pointed out with her two fingers by herself. Even though patient has electrolyte imbalance and vomiting and other issues her kidney function is normal. We will continue to monitor labs as ordered. Objective Vital Signs Date Time Temp Pulse Resp B/P (MAP) Pulse Ox O2 Delivery O2 Flow Rate FiO2 09/01/24 08:00 98.3 74 16 102/60 (74) 100 Room Air Result Diagram: 09/01/24 1425 09/01/24 0718 General-patient not in any acute distress, awake chronically ill-appearing HEENT-atraumatic normocephalic, neck supple without elevated JVD, no thyromegaly or carotid bruit. No lymphadenopathy bilaterally. Eyes- no icterus or pallor seen in eyes Chest-clear to auscultation bilaterally, breathing nonlabored no tachypnea, no wheezing, no crepitation, no crackles. Heart-S1-S2 normal, regular heart rate no murmur Abdomen bowel sounds positive on auscultation, soft nondistended , signs of subjective discomfort present bilaterally around umbilicus, no guarding, no rigidity Skin - skin appear pale Neurology-grossly intact, nonfocal alert awake Extremity- no pedal edema able to move all 4 extremities Psychiatry - patient is not confused or agitated cooperated during physical examination Problem\\Assessment\\Plan Problems/Diagnosis: (1) Bipolar 1 disorder # bipolar disorder- on a 5150 due to being gravely disabled Psychiatry following # 4.8 x 8.5 x 7.6 cm irregular heterogeneous mass with central hypodense area along the body of the pancreas. Dr Romero informed the patient that this could be either a primary pancreatic malignancy versus a collection of matted lymph nodes which Elenita Izaguirre director of psychiatry contacted pt's oncology office of Dr Martinez and faxed over the CT scan results and was informed that the patient needs to follow up in the office and likely change her chemo therapy regimen unfortunately the patient is awaiting for an LPS conservatorship. # bone and lung cancer We will need to follow up with Oncology once no longer hospitalized on a 5150 # Chronic constipation-Colace 100 mg b.i.d. not started as patient prefers Dulcolax suppository as per mental health nursing staff, # Hyponatremia-chronic , stable, urea added for chronic hyponatremia. Please discuss side effects of all psychiatric medications which can contribute to patient's chronic hyponatremia. patient is currently on multiple psychiatric medication which include Abilify, Cogentin, lithium, olanzapine, sertraline and can contribute to patient's current symptoms of hyponatremia, possible SIADH # Hypokalemia-do the replacement as per protocol based on CMP ordered today. As per nursing staff patient is refusing for potassium replacement # acute kidney injury- resolved # gastritis- Maalox as ordered P.r.n. Andrew and p.r.n. Compazine # Tobacco abuse- smoking cessation discussed with the patient by Dr Romero . The patient has accepted PRN nicotine lozenges and a 21 mg nicotine patch Hospitalist team will continue to follow the patient [place] [facility] Date of Service: Sep 01, 2024 Billing Provider: ELÍAS SNOW MD Common Visit Codes: [id number] INP/OBS CARE(MOD) ELÍAS SNOW MD Sep 01, 2024 18:54
[2024-09-01 19:00] VITALS: RESP 16; O2SAT 99
[2024-09-01 20:30] VITALS: BP 104/71; PULSE 103; RESP 16; TEMP 97.7; O2SAT 99
[2024-09-02 07:00] VITALS: RESP 16; O2SAT 94
[2024-09-02 07:38] LABS: MAGNESIUM 2.7 MG/DL (1.5-2.4)
[2024-09-02 07:45] LABS: POTASSIUM 3.5 MMOL/L (3.5-5.1)
[2024-09-02 08:00] VITALS: BP 87/60; PULSE 93; RESP 16; TEMP 97.6; O2SAT 94
--- NOTE | 2024-09-02 13:22 | PROGRESS NOTE ---
Progress Note Dictate Providers to CC ~ Central Line/PICC still needed: N\\A Antibiotic Ordered?: No MRSA Education MRSA Education Provided to pt: No Objective Vitals Vital Signs Date Time Temp Pulse Resp B/P (MAP) Pulse Ox O2 Delivery O2 Flow Rate FiO2 09/02/24 08:00 97.6 93 16 87/60 (69) 94 Room Air Lab Results: 09/01/24 1425 09/02/24 0702 Counseling Services Smoking & Tobacco Cessation: > 10 Minutes Problem\\Assessment\\Plan Problems/Diagnosis: (1) Schizoaffective disorder, bipolar type (2) Gravely disabled Psychiatrist's Progress Note Date of Service: Sep 02, 2024 Notes CHART REVIEW Kia is a 55-year-old female on the medical floor of [facility] referred for a mental health evaluation. Toxicology report positive for THC. Kia is an active client of [facility]. Per [place] clinician, client has been decompensating over the past three months. Reporting that she had not been letting them into her home, most recent visitation clinician discovered home to be an unlivable declined. She stated that the client although reporting she has been eating and has food in her home, this information is boss, and client's physical well-being and weight loss is evident, and evidence verify and there is no food in the home. Client lives on her own in his uncertain if she has been able to maintain a medication regiment. ASSESSMENT The patient is interviewed in observation room. Patient seen actively sitting in rec room. The patient endorses "Okay." The patient endorses no worsening mental health symptoms. Denies SI. Denies HI. Denies AVH. Patient endorses adequate sleep and food intake. The patient is stable no acute distress noted. The patient is calm, cooperative, and engaged during session. Per staff report no behavior issues. Per staff report patient is compliant with medication regimen. Will continue daily assessment and adjusting treatment as needed. Closely monitor behavior and response to medication during hospitalization Results Of any Diagn. Testing REVIEW OF LABS WBC 5.8 RBC 3.57 HEMOGLOBIN 13.3 HEMATOCRIT 39.0 PLATELET COUNT 262 SODIUM 129 POTASSIUM 3.6 ANION GAP11 BUN 21 CREATININE 1.66 HEMOGLOBIN A1C 5.4 CALCIUM 9.2 LITHIUM 2.1 ALBUMIN 3.4 TRIGLYCERIDES 143 CHOLESTEROL 240 LDL 136 HDL 73 TSH 0.48 URINE DRUG SCREEN POSITIVE FOR CANNABIS URINE ANALYSIS NEGATIVE Appearnace: Other (AVERAGE HEIGHT THIN FEMALE. WEARING GREEN SCRUBS. BLONDE GRAYING HAIR PULLED BACK IN A PONY TAIL) Speech: Impoverished Eye Contact: Other (INTERMITTENT) Affect: Constricted Orientation Impairment: None Memory Impairment: None Attention: Normal Other: None Suicidality: None Homicidality: None Delusions: None Behavior: Cooperative Insight: Poor Judgment: Poor Treatment ABILIFY 5 MG P.O. DAILY ZOLOFT 100 MG P.O. Q.H.S. OLANZAPINE 20 MG P.O. Q.H.S. Monitoring by Staff, Milieu, Group, and Individual counseling as needed -- According to the [place] Suicide Assessment the above named patient is on Q 15 MINUTE CHECKS. [id number]-Patient is unable to formulate a plan to safely meet their basic needs of food, clothing, and care home due to the severity of their mental illness. We are still titrating medications to an effective dose while maintaining a therapeutic environment to prevent decompensation and readmission. REVIEW OF Clinical notes [X ] RN notes [X] PCT documentation [X] SW notes Labs [ X] Medications [X] Care trends/care activity [X] Vitals [X] DISCUSSION WITH refrigeration lead [X] Staff SW [X] Treatment Team [X] Discharge UNSURE AT THIS TIME. TCON CODING VISIT-PSYCHIATRY Date of Service: Sep 02, 2024 Billing Provider: KERRIE RIZO APRN Psych Common Visit Codes: [id number] INP/OBS CARE(Mod) KERRIE RIZO APRN Sep 02, 2024 13:22
[2024-09-02 19:00] VITALS: RESP 18; O2SAT 94
[2024-09-02 20:00] VITALS: BP 111/75; PULSE 62; RESP 18; TEMP 98.8; O2SAT 94
[2024-09-03 07:00] VITALS: RESP 15; O2SAT 95
[2024-09-03 08:00] VITALS: BP 98/65; PULSE 100; RESP 15; TEMP 98; O2SAT 95
[2024-09-03] MEDS: LORazepam 0.5 MG tablet PO PRN (14:02)
--- NOTE | 2024-09-03 14:10 | PROGRESS NOTE ---
Progress Note Dictate Providers to CC ~ Central Line/PICC still needed: N\\A Antibiotic Ordered?: No MRSA Education MRSA Education Provided to pt: No Objective Vitals Vital Signs Date Time Temp Pulse Resp B/P (MAP) Pulse Ox O2 Delivery O2 Flow Rate FiO2 09/03/24 08:00 98.0 100 15 98/65 (76) 95 Room Air Lab Results: 09/01/24 1425 09/02/24 0702 Counseling Services Smoking & Tobacco Cessation: > 10 Minutes Problem\\Assessment\\Plan Problems/Diagnosis: (1) Schizoaffective disorder, bipolar type (2) Gravely disabled Psychiatrist's Progress Note Date of Service: Sep 03, 2024 Notes CHART REVIEW Kia is a 55-year-old female on the medical floor of [facility] referred for a mental health evaluation. Toxicology report positive for THC. Kia is an active client of [facility]. Per [place] clinician, client has been decompensating over the past three months. Reporting that she had not been letting them into her home, most recent visitation clinician discovered home to be an unlivable declined. She stated that the client although reporting she has been eating and has food in her home, this information is boss, and client's physical well-being and weight loss is evident, and evidence verify and there is no food in the home. Client lives on her own in his uncertain if she has been able to maintain a medication regiment. ASSESSMENT The patient is interviewed in observation room. Patient seen actively sitting in chair in room. The patient endorses "Okay." The patient endorses she is a little anxious about her appointment today with her oncologist. "I have been having all this pain on my side I wonder if there is anything wrong that he will tell me." The patient endorses no worsening mental health symptoms. Denies SI. Denies HI. Denies AVH. Patient endorses adequate sleep and food intake. The patient is stable no acute distress noted. The patient is a bit anxious, cooperative, and engaged during session. Per staff report no behavior issues. Per staff report patient is compliant with medication regimen. Will continue daily assessment and adjusting treatment as needed. Closely monitor behavior and response to medication during hospitalization Results Of any Diagn. Testing REVIEW OF LABS WBC 5.8 RBC 3.57 HEMOGLOBIN 13.3 HEMATOCRIT 39.0 PLATELET COUNT 262 SODIUM 129 POTASSIUM 3.6 ANION GAP11 BUN 21 CREATININE 1.66 HEMOGLOBIN A1C 5.4 CALCIUM 9.2 LITHIUM 2.1 ALBUMIN 3.4 TRIGLYCERIDES 143 CHOLESTEROL 240 LDL 136 HDL 73 TSH 0.48 URINE DRUG SCREEN POSITIVE FOR CANNABIS URINE ANALYSIS NEGATIVE Appearnace: Other Speech: Impoverished Eye Contact: Normal Motor Activity: Normal Affect: Constricted Orientation Impairment: None Memory Impairment: None Attention: Normal Hallucinations: None Other: None Suicidality: None Homicidality: None Delusions: None Behavior: Cooperative Insight: Poor Judgment: Poor Treatment ABILIFY 5 MG P.O. DAILY ZOLOFT 100 MG P.O. Q.H.S. OLANZAPINE 20 MG P.O. Q.H.S. Monitoring by Staff, Milieu, Group, and Individual counseling as needed -- According to the [place] Suicide Assessment the above named patient is on Q 15 MINUTE CHECKS. [id number]-Patient is unable to formulate a plan to safely meet their basic needs of food, clothing, and fpc due to the severity of their mental illness. We are still titrating medications to an effective dose while maintaining a therapeutic environment to prevent decompensation and readmission. REVIEW OF Clinical notes [X ] RN notes [X] PCT documentation [X] SW notes Labs [ X] Medications [X] Care trends/care activity [X] Vitals [X] DISCUSSION WITH attendance clerk [X] Staff SW [X] Treatment Team [X] Discharge UNSURE AT THIS TIME. TCON CODING VISIT-PSYCHIATRY Date of Service: Sep 03, 2024 Billing Provider: KERRIE RIZO APRN Psych Common Visit Codes: [id number] INP/OBS CARE(Mod) KERRIE RIZO APRN Sep 03, 2024 14:10
--- NOTE | 2024-09-03 18:24 | PROGRESS NOTE- Residence ---
Progress Note - Resident Providers to CC Resident Creating Document: PILAR ARAMBULA, NAREN ~ Antibiotic Timeout Antibiotic Ordered?: No Subjective Patient was seen in the mental health unit today, she denied any complaint Objective Vital Signs Date Time Temp Pulse Resp B/P (MAP) Pulse Ox O2 Delivery O2 Flow Rate FiO2 09/03/24 08:00 98.0 100 15 98/65 (76) 95 Room Air Result Diagram: 09/01/24 1425 09/02/24 0702 General: Cachectic lady, Awake and Alert, no acute distress. HEENT: Conjunctiva pink, Sclera clear, Mucus Membranes moist. Neck: Supple without masses and tenderness. Resp: Lungs clear to auscultation bilaterally. Heart: Regular Rate and rhythm, normal S1 and S2 without murmur, rub or gallop. Abdomen: Soft and non tender Extremities: No cyanosis,clubbing or edema. Skin: Warm and Dry. Neurological: Speech is clear, alert, and oriented x 4, no gross neurological deficits Assessment Assessment # bipolar disorder- on a 5150 due to being gravely disabled Management per Psychiatry # history of hypokalemia- 3.5 today # acute kidney injury Likely secondary to dehydration due to vomiting Significantly improved # gastritis Maalox as ordered P.r.n. Zofran and p.r.n. Compazine #Hyponatremia-improved to 131 today Pilar Arambula Internal [facility] Resident, Date of Service: Sep 03, 2024 Billing Provider: HUNTER OTERO MD Common Visit Codes: [id number] INP/OBS CARE(LOW) PILAR ARAMBULA, NAREN Sep 03, 2024 18:24 HUNTER OTERO MD Sep 05, 2024 09:18
[2024-09-03 18:35] VITALS: RESP 15; O2SAT 96
[2024-09-03 19:33] VITALS: BP 102/73; PULSE 104; RESP 20; TEMP 98.2; O2SAT 98
[2024-09-04 07:00] VITALS: RESP 16; O2SAT 100
[2024-09-04 07:40] LABS: ALANINE AMINOTRANSFERASE 121 U/L (12-78); ALBUMIN 2.4 G/DL (3.4-5.0); ALKALINE PHOSPHATASE 563 IU/L (46-116); ANION GAP 6 (8-16); ASPARTATE AMINO TRANSFERASE 120 U/L (10-37); BILIRUBIN,TOTAL 9.8 MG/DL (0.1-1.0); BLOOD UREA NITROGEN 17 MG/DL (7-18); BUN/CREATININE RATIO 26.6 (10.0-20.0); CALCIUM 9.3 MG/DL (8.5-10.1); CHLORIDE 93 MMOL/L (99-107); CREATININE 0.64 MG/DL (0.40-0.90); GLUCOSE 101 MG/DL (70-104); SODIUM 132 MMOL/L (135-145); eCRCL 79 ML/MIN; eGFR > 90 ML/MIN
[2024-09-04 07:42] LABS: ALBUMIN/GLOBULIN RATIO 0.7 (1.1-1.5); POTASSIUM 3.5 MMOL/L (3.5-5.1); TOTAL PROTEIN 5.8 G/DL (6.4-8.2)
[2024-09-04 08:00] VITALS: BP 96/58; PULSE 100; RESP 16; TEMP 97.5; O2SAT 100
--- NOTE | 2024-09-04 08:00 | PROGRESS NOTE ---
Progress Note Dictate Providers to CC ~ Central Line/PICC still needed: N\\A Antibiotic Ordered?: No MRSA Education MRSA Education Provided to pt: No Objective Vitals Vital Signs Date Time Temp Pulse Resp B/P (MAP) Pulse Ox O2 Delivery O2 Flow Rate FiO2 09/03/24 19:33 98.2 104 20 102/73 (83) 98 Room Air Lab Results: 09/01/24 1425 09/04/24 0652 Counseling Services Smoking & Tobacco Cessation: > 10 Minutes Problem\\Assessment\\Plan Problems/Diagnosis: (1) Schizoaffective disorder, bipolar type (2) Gravely disabled Psychiatrist's Progress Note Date of Service: Sep 04, 2024 Notes CHART REVIEW Kia is a 55-year-old female on the medical floor of [facility] referred for a mental health evaluation. Toxicology report positive for THC. Kia is an active client of [facility]. Per [place] clinician, client has been decompensating over the past three months. Reporting that she had not been letting them into her home, most recent visitation clinician discovered home to be an unlivable declined. She stated that the client although reporting she has been eating and has food in her home, this information is boss, and client's physical well-being and weight loss is evident, and evidence verify and there is no food in the home. Client lives on her own in his uncertain if she has been able to maintain a medication regiment. ASSESSMENT The patient is interviewed in observation room. Patient seen actively walking back to room after in breakfast in dining area. The patient endorses "alright." The patient endorses "the doctor didn't say much yesterday, so I guess everything is going okay." "He did give me my injection and I feel better." The patient endorses no worsening mental health symptoms. Denies SI. Denies HI. Denies AVH. Patient endorses adequate sleep and food intake. The patient is stable no acute distress noted. The patient is calm, cooperative, and engaged during session. Per staff report no behavior issues. Per staff report patient is compliant with medication regimen. Will continue daily assessment and adjusting treatment as needed. Closely monitor behavior and response to medication during hospitalization Results Of any Diagn. Testing REVIEW OF LABS WBC 5.8 RBC 3.57 HEMOGLOBIN 13.3 HEMATOCRIT 39.0 PLATELET COUNT 262 SODIUM 129 POTASSIUM 3.6 ANION GAP11 BUN 21 CREATININE 1.66 HEMOGLOBIN A1C 5.4 CALCIUM 9.2 LITHIUM 2.1 ALBUMIN 3.4 TRIGLYCERIDES 143 CHOLESTEROL 240 LDL 136 HDL 73 TSH 0.48 URINE DRUG SCREEN POSITIVE FOR CANNABIS URINE ANALYSIS NEGATIVE Appearnace: Other Speech: Other (CIRCUMSTANTIAL) Eye Contact: Other (INTERMITTENT) Motor Activity: Normal Affect: Constricted Orientation Impairment: None Memory Impairment: None Attention: Normal Hallucinations: None Other: None Suicidality: None Homicidality: None Delusions: None Behavior: Cooperative Insight: Poor Judgment: Poor Treatment ABILIFY 5 MG P.O. DAILY ZOLOFT 100 MG P.O. Q.H.S. OLANZAPINE 20 MG P.O. Q.H.S. Monitoring by Staff, Milieu, Group, and Individual counseling as needed -- According to the [place] Suicide Assessment the above named patient is on Q 15 MINUTE CHECKS. [id number]-Patient is unable to formulate a plan to safely meet their basic needs of food, clothing, and mcc due to the severity of their mental illness. We are still titrating medications to an effective dose while maintaining a therapeutic environment to prevent decompensation and readmission. REVIEW OF Clinical notes [X ] RN notes [X] PCT documentation [X] SW notes Labs [ X] Medications [X] Care trends/care activity [X] Vitals [X] DISCUSSION WITH repatcher [X] Staff SW [X] Treatment Team [X] Discharge UNSURE AT THIS TIME. TCON CODING VISIT-PSYCHIATRY Date of Service: Sep 04, 2024 Billing Provider: KERRIE RIZO APRN Psych Common Visit Codes: [id number] INP/OBS CARE(Low) KERRIE RIZO APRN Sep 04, 2024 08:00
[2024-09-04] MEDS: bisacodyl 10mg suppository rectal RC PRN (09:30)
[2024-09-04 18:27] VITALS: RESP 15; O2SAT 98
[2024-09-04 19:32] VITALS: BP 102/74; PULSE 99; RESP 16; TEMP 97.5; O2SAT 98
[2024-09-05 07:00] VITALS: RESP 16; O2SAT 97
[2024-09-05 08:00] VITALS: BP 105/53; PULSE 106; RESP 16; TEMP 97.4; O2SAT 97
--- NOTE | 2024-09-05 09:18 | PROGRESS NOTE ---
Daily Progress Note Providers to CC ~ Antibiotic Timeout Antibiotic Ordered?: No Subjective Chief complaint none patient is sleeping comfortably easily arousable Objective Vital Signs Date Time Temp Pulse Resp B/P (MAP) Pulse Ox O2 Delivery O2 Flow Rate FiO2 09/04/24 19:32 97.5 99 16 102/74 (83) 98 Room Air Result Diagram: 09/01/24 1425 09/04/24 0652 HEENT: Conjunctiva pink, Sclera clear, Mucus Membranes moist. Neck: Supple without masses and tenderness. Resp: Lungs clear to auscultation bilaterally. Heart: Regular Rate and rhythm, normal S1 and S2 without murmur, rub or gallop. Abdomen: Soft and non tender Extremities: No cyanosis,clubbing or edema. Problem\Assessment\Plan Problems/Diagnosis: (1) Bipolar 1 disorder # bipolar disorder- on a 5150 due to being gravely disabled Psychiatry following # 4.8 x 8.5 x 7.6 cm irregular heterogeneous mass with central hypodense area along the body of the pancreas. Dr Romero informed the patient that this could be either a primary pancreatic malignancy versus a collection of matted lymph nodes which Elenita Izaguirre personnel psychologist contacted pt's oncology office of Dr Martinez and faxed over the CT scan results and was informed that the patient needs to follow up in the office and likely change her chemo therapy regimen unfortunately the patient is awaiting for an LPS conservatorship. # bone and lung cancer We will need to follow up with Oncology once no longer hospitalized on a 5150 # Chronic constipation-Colace 100 mg b.i.d. not started as patient prefers Dulcolax suppository as per mental health nursing staff, # Hyponatremia-chronic , stable, urea added for chronic hyponatremia. Please discuss side effects of all psychiatric medications which can contribute to patient's chronic hyponatremia. patient is currently on multiple psychiatric medication which include Abilify, Cogentin, lithium, olanzapine, sertraline and can contribute to patient's current symptoms of hyponatremia, possible SIADH # Hypokalemia-do the replacement as per protocol based on CMP ordered today. As per nursing staff patient is refusing for potassium replacement # acute kidney injury- resolved # gastritis- Maalox as ordered P.r.n. Andrew and p.r.n. Compazine # Tobacco abuse- smoking cessation discussed with the patient by Dr Romero . The patient has accepted PRN nicotine lozenges and a 21 mg nicotine patch Hospitalist team will continue to follow the patient while hospitalized at [facility] Date of Service: Sep 05, 2024 Billing Provider: HUNTER OTERO MD Common Visit Codes: [id number] INP/OBS CARE(LOW) HUNTER OTERO MD Sep 05, 2024 09:18
--- NOTE | 2024-09-05 11:03 | PROGRESS NOTE ---
Progress Note Dictate Providers to CC ~ Central Line/PICC still needed: N\\A Antibiotic Ordered?: No MRSA Education MRSA Education Provided to pt: No Objective Vitals Vital Signs Date Time Temp Pulse Resp B/P (MAP) Pulse Ox O2 Delivery O2 Flow Rate FiO2 09/05/24 08:00 97.4 106 16 105/53 (70) 97 Room Air Lab Results: 09/01/24 1425 09/04/24 0652 Problem\\Assessment\\Plan Problems/Diagnosis: (1) Schizoaffective disorder, bipolar type (2) Gravely disabled Psychiatrist's Progress Note Date of Service: Sep 05, 2024 Notes CHART REVIEW Kia is a 55-year-old female on the medical floor of [facility] referred for a mental health evaluation. Toxicology report positive for THC. Kia is an active client of [facility]. Per [place] clinician, client has been decompensating over the past three months. Reporting that she had not been letting them into her home, most recent visitation clinician discovered home to be an unlivable declined. She stated that the client although reporting she has been eating and has food in her home, this information is boss, and client's physical well-being and weight loss is evident, and evidence verify and there is no food in the home. Client lives on her own in his uncertain if she has been able to maintain a medication regiment. ASSESSMENT The patient is interviewed in observation room. Patient seen actively sitting edge of bed. The patient endorses "My eyes are yellow." "Can you call my cancer doctor and ask him for my cancer medication, he said he would send it here." The patient endorses no worsening mental health symptoms. Denies SI. Denies HI. Denies AVH. Patient endorses adequate sleep and food intake. The patient is stable no acute distress noted. The patient is calm, cooperative, and engaged during session. Will follow with oncologist on Saturday, regarding medication. Per staff report no behavior issues. Per staff report patient is compliant with medication regimen. Will continue daily assessment and adjusting treatment as needed. Closely monitor behavior and response to medication during hospitalization Results Of any Diagn. Testing REVIEW OF LABS WBC 5.8 RBC 3.57 HEMOGLOBIN 13.3 HEMATOCRIT 39.0 PLATELET COUNT 262 SODIUM 129 POTASSIUM 3.6 ANION GAP11 BUN 21 CREATININE 1.66 HEMOGLOBIN A1C 5.4 CALCIUM 9.2 LITHIUM 2.1 ALBUMIN 3.4 TRIGLYCERIDES 143 CHOLESTEROL 240 LDL 136 HDL 73 TSH 0.48 URINE DRUG SCREEN POSITIVE FOR CANNABIS URINE ANALYSIS NEGATIVE Appearnace: Other Speech: Impoverished Eye Contact: Normal Motor Activity: Normal Affect: Constricted Orientation Impairment: None Memory Impairment: None Attention: Normal Hallucinations: None Other: None Suicidality: None Homicidality: None Delusions: None Behavior: Cooperative Insight: Poor Judgment: Poor Treatment ABILIFY 5 MG P.O. DAILY ZOLOFT 100 MG P.O. Q.H.S. OLANZAPINE 20 MG P.O. Q.H.S. Monitoring by Staff, Milieu, Group, and Individual counseling as needed -- According to the [place] Suicide Assessment the above named patient is on Q 15 MINUTE CHECKS. [id number]-Patient is unable to formulate a plan to safely meet their basic needs of food, clothing, and skilled nursing due to the severity of their mental illness. We are still titrating medications to an effective dose while maintaining a therapeutic environment to prevent decompensation and readmission. REVIEW OF Clinical notes [X ] RN notes [X] PCT documentation [X] SW notes Labs [ X] Medications [X] Care trends/care activity [X] Vitals [X] DISCUSSION WITH papeterie table assembler [X] Staff SW [X] Treatment Team [X] Discharge UNSURE AT THIS TIME. TCON CODING VISIT-PSYCHIATRY Date of Service: Sep 05, 2024 Billing Provider: KERRIE RIZO APRN Psych Common Visit Codes: [id number] INP/OBS CARE(Mod) KERRIE RIZO APRN Sep 05, 2024 11:03
[2024-09-05 18:34] VITALS: RESP 16; O2SAT 98
[2024-09-05 19:27] VITALS: BP 97/73; PULSE 70; RESP 16; TEMP 98.8; O2SAT 97
[2024-09-06 07:00] VITALS: BP 96/60; PULSE 96; RESP 15; TEMP 97.1; O2SAT 97
--- NOTE | 2024-09-06 12:04 | PROGRESS NOTE ---
Progress Note Dictate Providers to CC ~ Central Line/PICC still needed: N\\A Antibiotic Ordered?: No MRSA Education MRSA Education Provided to pt: No Objective Vitals Vital Signs Date Time Temp Pulse Resp B/P (MAP) Pulse Ox O2 Delivery O2 Flow Rate FiO2 09/06/24 07:00 97.1 96 15 96/60 (72) 97 Room Air Lab Results: 09/04/24 0652 Problem\\Assessment\\Plan Problems/Diagnosis: (1) Schizoaffective disorder, bipolar type (2) Gravely disabled Psychiatrist's Progress Note Date of Service: Sep 06, 2024 Notes CHART REVIEW Kia is a 55-year-old female on the medical floor of [facility] referred for a mental health evaluation. Toxicology report positive for THC. Kia is an active client of [facility]. Per [place] clinician, client has been decompensating over the past three months. Reporting that she had not been letting them into her home, most recent visitation clinician discovered home to be an unlivable declined. She stated that the client although reporting she has been eating and has food in her home, this information is boss, and client's physical well-being and weight loss is evident, and evidence verify and there is no food in the home. Client lives on her own in his uncertain if she has been able to maintain a medication regiment. ASSESSMENT The patient is interviewed in observation room. Patient seen actively sitting in rec room. The patient endorses "Okay." The patient endorses no worsening mental health symptoms. Denies SI. Denies HI. Denies AVH. Patient endorses adequate sleep and food intake. The patient is stable no acute distress noted. The patient is calm, cooperative, and engaged during session. Will follow with oncologist on Saturday, regarding medication. Per staff report no behavior issues. Per staff report patient is compliant with medication regimen. Will continue daily assessment and adjusting treatment as needed. Closely monitor behavior and response to medication during hospitalization Results Of any Diagn. Testing REVIEW OF LABS WBC 5.8 RBC 3.57 HEMOGLOBIN 13.3 HEMATOCRIT 39.0 PLATELET COUNT 262 SODIUM 129 POTASSIUM 3.6 ANION GAP11 BUN 21 CREATININE 1.66 HEMOGLOBIN A1C 5.4 CALCIUM 9.2 LITHIUM 2.1 ALBUMIN 3.4 TRIGLYCERIDES 143 CHOLESTEROL 240 LDL 136 HDL 73 TSH 0.48 URINE DRUG SCREEN POSITIVE FOR CANNABIS URINE ANALYSIS NEGATIVE Appearnace: Disheveled Speech: Other (CIRCUMSTANTIAL) Eye Contact: Normal Motor Activity: Normal Affect: Constricted Orientation Impairment: None Memory Impairment: None Attention: Normal Hallucinations: None Other: None Suicidality: None Homicidality: None Delusions: None Behavior: Cooperative Insight: Poor Judgment: Poor Treatment ABILIFY 5 MG P.O. DAILY ZOLOFT 100 MG P.O. Q.H.S. OLANZAPINE 20 MG P.O. Q.H.S. Monitoring by Staff, Milieu, Group, and Individual counseling as needed -- According to the [place] Suicide Assessment the above named patient is on Q 15 MINUTE CHECKS. [id number]-Patient is unable to formulate a plan to safely meet their basic needs of food, clothing, and alf due to the severity of their mental illness. We are still titrating medications to an effective dose while maintaining a therapeutic environment to prevent decompensation and readmission. REVIEW OF Clinical notes [X ] RN notes [X] PCT documentation [X] SW notes Labs [ X] Medications [X] Care trends/care activity [X] Vitals [X] DISCUSSION WITH engraver ornamental design [X] Staff SW [X] Treatment Team [X] Discharge UNSURE AT THIS TIME. TCON CODING VISIT-PSYCHIATRY Date of Service: Sep 06, 2024 Billing Provider: KERRIE RIZO APRN Psych Common Visit Codes: [id number] INP/OBS CARE(Low) KERRIE RIZO APRN Sep 06, 2024 12:04
[2024-09-06 19:00] VITALS: RESP 20; O2SAT 97
[2024-09-06 20:00] VITALS: BP 106/55; PULSE 100; RESP 20; TEMP 98.5; O2SAT 97
[2024-09-07 07:00] VITALS: BP 95/68; PULSE 78; RESP 15; TEMP 97.8; O2SAT 96
[2024-09-07 07:24] LABS: ALANINE AMINOTRANSFERASE 97 U/L (12-78); ALBUMIN 2.2 G/DL (3.4-5.0); ALKALINE PHOSPHATASE 579 IU/L (46-116); ANION GAP 6 (8-16); ASPARTATE AMINO TRANSFERASE 115 U/L (10-37); BILIRUBIN,TOTAL 12.3 MG/DL (0.1-1.0); BLOOD UREA NITROGEN 16 MG/DL (7-18); BUN/CREATININE RATIO 23.9 (10.0-20.0); CALCIUM 8.7 MG/DL (8.5-10.1); CHLORIDE 95 MMOL/L (99-107); CREATININE 0.67 MG/DL (0.40-0.90); GLUCOSE 89 MG/DL (70-104); SODIUM 133 MMOL/L (135-145); TOTAL CARBON DIOXIDE 32.1 MMOL/L (24-32); eCRCL 75 ML/MIN; eGFR > 90 ML/MIN
[2024-09-07 07:29] LABS: ALBUMIN/GLOBULIN RATIO 0.7 (1.1-1.5); POTASSIUM 3.1 MMOL/L (3.5-5.1); TOTAL PROTEIN 5.5 G/DL (6.4-8.2)
[2024-09-07] MEDS ORDERED: potassium Cl 20 mEq SR tablet PO PRN (08:25)
[2024-09-07] MEDS ORDERED: potassium Cl 40MEQ/1/2NS 520ml 520 ML IV PRN (08:25)
[2024-09-07] MEDS: potassium Cl 20 mEq SR tablet PO PRN (08:52)
--- NOTE | 2024-09-07 11:46 | PROGRESS NOTE ---
Progress Note Dictate Providers to CC ~ Central Line/PICC still needed: N\\A Antibiotic Ordered?: No MRSA Education MRSA Education Provided to pt: No Objective Vitals Vital Signs Date Time Temp Pulse Resp B/P (MAP) Pulse Ox O2 Delivery O2 Flow Rate FiO2 09/07/24 07:00 15 96 Room Air 09/07/24 07:00 97.8 78 95/68 (77) Lab Results: 09/07/24 0630 Problem\\Assessment\\Plan Problems/Diagnosis: (1) Schizoaffective disorder, bipolar type (2) Gravely disabled Psychiatrist's Progress Note Date of Service: Sep 07, 2024 Notes CHART REVIEW Kia is a 55-year-old female on the medical floor of [facility] referred for a mental health evaluation. Toxicology report positive for THC. Kia is an active client of [facility]. Per [place] clinician, client has been decompensating over the past three months. Reporting that she had not been letting them into her home, most recent visitation clinician discovered home to be an unlivable declined. She stated that the client although reporting she has been eating and has food in her home, this information is boss, and client's physical well-being and weight loss is evident, and evidence verify and there is no food in the home. Client lives on her own in his uncertain if she has been able to maintain a medication regiment. ASSESSMENT The patient is interviewed in observation room. Patient seen actively sitting up in bed. The patient endorses "Alright." The patient endorses no worsening mental health symptoms. Denies SI. Denies HI. Denies AVH. Patient endorses adequate sleep and food intake. The patient is stable no acute distress noted. The patient is calm, cooperative, and engaged during session. Per staff report no behavior issues. Per staff report patient is compliant with medication regimen. Will continue daily assessment and adjusting treatment as needed. Closely monitor behavior and response to medication during hospitalization Clinician spoke with Marlee Branham, nurse at [facility] where Kia had a follow-up oncology appointment at last Saturday. Marlee is going to scheduled Kia another follow-up appointment sometime this week with . Results Of any Diagn. Testing REVIEW OF LABS WBC 5.8 RBC 3.57 HEMOGLOBIN 13.3 HEMATOCRIT 39.0 PLATELET COUNT 262 SODIUM 129 POTASSIUM 3.6 ANION GAP11 BUN 21 CREATININE 1.66 HEMOGLOBIN A1C 5.4 CALCIUM 9.2 LITHIUM 2.1 ALBUMIN 3.4 TRIGLYCERIDES 143 CHOLESTEROL 240 LDL 136 HDL 73 TSH 0.48 URINE DRUG SCREEN POSITIVE FOR CANNABIS URINE ANALYSIS NEGATIVE Appearnace: Disheveled Speech: Other (CIRCUMSTANTIAL) Eye Contact: Other (INTERMITTENT) Motor Activity: Normal Affect: Flat Orientation Impairment: None Memory Impairment: None Attention: Normal Hallucinations: None Other: None Suicidality: None Homicidality: None Delusions: None Behavior: Cooperative Insight: Poor Judgment: Poor Treatment ABILIFY 5 MG P.O. DAILY ZOLOFT 100 MG P.O. Q.H.S. OLANZAPINE 20 MG P.O. Q.H.S. Monitoring by Staff, Milieu, Group, and Individual counseling as needed -- According to the [place] Suicide Assessment the above named patient is on Q 15 MINUTE CHECKS. [id number]-Patient is unable to formulate a plan to safely meet their basic needs of food, clothing, and alf due to the severity of their mental illness. We are still titrating medications to an effective dose while maintaining a therapeutic environment to prevent decompensation and readmission. REVIEW OF Clinical notes [X ] RN notes [X] PCT documentation [X] SW notes Labs [ X] Medications [X] Care trends/care activity [X] Vitals [X] DISCUSSION WITH primary special education teacher [X] Staff SW [X] Treatment Team [X] Discharge UNSURE AT THIS TIME. TCON CODING VISIT-PSYCHIATRY Date of Service: Sep 07, 2024 Billing Provider: KERRIE RIZO APRN Psych Common Visit Codes: [id number] INP/OBS CARE(Mod) KERRIE RIZO APRN Sep 07, 2024 11:46
--- NOTE | 2024-09-07 16:50 | PROGRESS NOTE- Residence ---
Progress Note - Resident Providers to CC Resident Creating Document: GEN ARCOS, NAREN ~ Antibiotic Timeout Antibiotic Ordered?: No Subjective Patient was seen in the mental health unit today, she denied any complaint. She asked if she could get OxyContin for pain. She said that she has been in her points all over her body Objective Vital Signs Date Time Temp Pulse Resp B/P (MAP) Pulse Ox O2 Delivery O2 Flow Rate FiO2 09/07/24 07:00 15 96 Room Air 09/07/24 07:00 97.8 78 95/68 (77) Result Diagram: 09/07/24 0630 General: Awake and Alert, no acute distress. Patient did not consent for examination Assessment Assessment # bipolar disorder- on a 5150 due to being gravely disabled Management per Psychiatry # history of hypokalemia- 3.5 today # acute kidney injury Likely secondary to dehydration due to vomiting Significantly improved # gastritis Maalox as ordered P.r.n. Zofran and p.r.n. Compazine #Hyponatremia-improved to 133 today #Hypokalemia-potassium 3.1, started on potassium replacement protocol Gen Arcos M.D PGY1 Patient is seen Date of Service: Sep 07, 2024 Billing Provider: HUNTER OTERO MD Common Visit Codes: [id number] INP/OBS CARE(LOW) GEN ARCOS, NAREN Sep 07, 2024 16:50 HUNTER OTERO MD Sep 07, 2024 17:40
[2024-09-07 20:00] VITALS: BP 102/71; PULSE 100; RESP 19; TEMP 97.8; O2SAT 97
[2024-09-07] MEDS: K and/or MAG REPLACEMENT MC SCH (20:00)
[2024-09-07 22:24] VITALS: RESP 19; O2SAT 97
[2024-09-08 07:00] VITALS: BP 82/54; PULSE 81; RESP 18; TEMP 95.3; O2SAT 99
[2024-09-08 08:50] VITALS: RESP 18; O2SAT 99
[2024-09-08 09:00] VITALS: BP 90/58
[2024-09-08 09:30] VITALS: BP 90/58
--- NOTE | 2024-09-08 14:25 | PROGRESS NOTE ---
Progress Note Dictate Providers to CC ~ Central Line/PICC still needed: N\\A Antibiotic Ordered?: No MRSA Education MRSA Education Provided to pt: No Objective Vitals Vital Signs Date Time Temp Pulse Resp B/P (MAP) Pulse Ox O2 Delivery O2 Flow Rate FiO2 09/08/24 09:30 90/58 (69) 09/08/24 08:50 18 99 Room Air 09/08/24 07:00 95.3 81 Lab Results: 09/07/24 0630 Problem\\Assessment\\Plan Problems/Diagnosis: (1) Schizoaffective disorder, bipolar type (2) Gravely disabled Psychiatrist's Progress Note Date of Service: Sep 08, 2024 Notes CHART REVIEW Kia is a 55-year-old female on the medical floor of [facility] referred for a mental health evaluation. Toxicology report positive for THC. Kia is an active client of [facility]. Per [place] clinician, client has been decompensating over the past three months. Reporting that she had not been letting them into her home, most recent visitation clinician discovered home to be an unlivable declined. She stated that the client although reporting she has been eating and has food in her home, this information is boss, and client's physical well-being and weight loss is evident, and evidence verify and there is no food in the home. Client lives on her own in his uncertain if she has been able to maintain a medication regiment. ASSESSMENT The patient is interviewed in observation room. Patient seen actively sitting in rec room. The patient endorses "Okay." The patient endorses no worsening mental health symptoms. Denies SI. Denies HI. Denies AVH. Patient endorses adequate sleep and food intake. The patient is stable no acute distress noted. The patient is calm, cooperative, and engaged during session. Per staff report no behavior issues. Per staff report patient is compliant with medication regimen. Will continue daily assessment and adjusting treatment as needed. Closely monitor behavior and response to medication during hospitalization Results Of any Diagn. Testing REVIEW OF LABS WBC 5.8 RBC 3.57 HEMOGLOBIN 13.3 HEMATOCRIT 39.0 PLATELET COUNT 262 SODIUM 129 POTASSIUM 3.6 ANION GAP11 BUN 21 CREATININE 1.66 HEMOGLOBIN A1C 5.4 CALCIUM 9.2 LITHIUM 2.1 ALBUMIN 3.4 TRIGLYCERIDES 143 CHOLESTEROL 240 LDL 136 HDL 73 TSH 0.48 URINE DRUG SCREEN POSITIVE FOR CANNABIS URINE ANALYSIS NEGATIVE Appearnace: Other Speech: Other (CIRCUMSTANTIAL) Eye Contact: Other (INTERMITTENT) Motor Activity: Normal Affect: Constricted Orientation Impairment: None Memory Impairment: None Attention: Normal Hallucinations: None Other: None Suicidality: None Homicidality: None Delusions: None Behavior: Cooperative Insight: Poor Judgment: Poor Treatment ABILIFY 5 MG P.O. DAILY ZOLOFT 100 MG P.O. Q.H.S. OLANZAPINE 20 MG P.O. Q.H.S. Monitoring by Staff, Milieu, Group, and Individual counseling as needed -- According to the [place] Suicide Assessment the above named patient is on Q 15 MINUTE CHECKS. [id number]-Patient is unable to formulate a plan to safely meet their basic needs of food, clothing, and jail due to the severity of their mental illness. We are still titrating medications to an effective dose while maintaining a therapeutic environment to prevent decompensation and readmission. REVIEW OF Clinical notes [X ] RN notes [X] PCT documentation [X] SW notes Labs [ X] Medications [X] Care trends/care activity [X] Vitals [X] DISCUSSION WITH carroter [X] Staff SW [X] Treatment Team [X] Discharge UNSURE AT THIS TIME. TCON CODING VISIT-PSYCHIATRY Date of Service: Sep 08, 2024 Billing Provider: KERRIE RIZO APRN Psych Common Visit Codes: [id number] INP/OBS CARE(Low) KERRIE RIZO APRN Sep 08, 2024 14:24
[2024-09-08 19:30] VITALS: RESP 18; O2SAT 97
[2024-09-08 19:37] VITALS: BP 100/67; PULSE 105; RESP 18; TEMP 98.6; O2SAT 97
[2024-09-09 07:00] VITALS: BP 91/65; PULSE 107; RESP 20; TEMP 96.9; O2SAT 97
--- NOTE | 2024-09-09 11:33 | PROGRESS NOTE ---
Progress Note Dictate Providers to CC ~ Antibiotic Ordered?: No MRSA Education MRSA Education Provided to pt: No Objective Vitals Vital Signs Date Time Temp Pulse Resp B/P (MAP) Pulse Ox O2 Delivery O2 Flow Rate FiO2 09/08/24 19:37 98.6 105 18 100/67 (78) 97 Room Air Lab Results: 09/07/24 0630 Counseling Services Smoking & Tobacco Cessation: > 10 Minutes Problem\\Assessment\\Plan Problems/Diagnosis: (1) Schizoaffective disorder, bipolar type (2) Gravely disabled Psychiatrist's Progress Note Date of Service: Sep 09, 2024 Notes CHART REVIEW Kia is a 55-year-old female on the medical floor of [facility] referred for a mental health evaluation. Toxicology report positive for THC. Kia is an active client of [facility]. Per [place] clinician, client has been decompensating over the past three months. Reporting that she had not been letting them into her home, most recent visitation clinician discovered home to be an unlivable declined. She stated that the client although reporting she has been eating and has food in her home, this information is boss, and client's physical well-being and weight loss is evident, and evidence verify and there is no food in the home. Client lives on her own in his uncertain if she has been able to maintain a medication regiment. ASSESSMENT The patient is interviewed in observation room. Patient seen actively sitting in rec room. The patient endorses "alright." "i would like to get out of here and have a cigarette." The patient endorses no worsening mental health symptoms. Denies SI. Denies HI. Denies AVH. Patient endorses adequate sleep and food intake. The patient is stable no acute distress noted. The patient is calm, cooperative, and engaged during session. Per staff report no behavior issues. Per staff report patient is compliant with medication regimen. Will continue daily assessment and adjusting treatment as needed. Closely monitor behavior and response to medication during hospitalization Results Of any Diagn. Testing REVIEW OF LABS WBC 5.8 RBC 3.57 HEMOGLOBIN 13.3 HEMATOCRIT 39.0 PLATELET COUNT 262 SODIUM 129 POTASSIUM 3.6 ANION GAP11 BUN 21 CREATININE 1.66 HEMOGLOBIN A1C 5.4 CALCIUM 9.2 LITHIUM 2.1 ALBUMIN 3.4 TRIGLYCERIDES 143 CHOLESTEROL 240 LDL 136 HDL 73 TSH 0.48 URINE DRUG SCREEN POSITIVE FOR CANNABIS URINE ANALYSIS NEGATIVE Appearnace: Other Speech: Other (CIRCUMSTANTIAL) Eye Contact: Normal Motor Activity: Normal Affect: Constricted Orientation Impairment: None Memory Impairment: None Attention: Normal Hallucinations: None Other: None Suicidality: None Homicidality: None Delusions: None Behavior: Cooperative Insight: Poor Judgment: Poor Treatment ABILIFY 5 MG P.O. DAILY ZOLOFT 100 MG P.O. Q.H.S. OLANZAPINE 20 MG P.O. Q.H.S. Monitoring by Staff, Milieu, Group, and Individual counseling as needed -- According to the [place] Suicide Assessment the above named patient is on Q 15 MINUTE CHECKS. [id number]-Patient is unable to formulate a plan to safely meet their basic needs of food, clothing, and senior care due to the severity of their mental illness. We are still titrating medications to an effective dose while maintaining a therapeutic environment to prevent decompensation and readmission. REVIEW OF Clinical notes [X ] RN notes [X] PCT documentation [X] SW notes Labs [ X] Medications [X] Care trends/care activity [X] Vitals [X] DISCUSSION WITH cnc manufacturing engineer [X] Staff SW [X] Treatment Team [X] Discharge UNSURE AT THIS TIME. TCON CODING VISIT-PSYCHIATRY Date of Service: Sep 09, 2024 Billing Provider: KERRIE RIZO APRN Psych Common Visit Codes: [id number] INP/OBS CARE(Mod) KERRIE RIZO APRN Sep 09, 2024 11:33
--- NOTE | 2024-09-09 18:35 | PROGRESS NOTE- Residence ---
Progress Note - Resident Providers to CC Resident Creating Document: GEN ARCOS, NAREN ~ Antibiotic Timeout Antibiotic Ordered?: No Subjective Patient was seen in the mental health unit today, she denied any complaint. She asked if she could get OxyContin for pain. Objective Vital Signs Date Time Temp Pulse Resp B/P (MAP) Pulse Ox O2 Delivery O2 Flow Rate FiO2 09/09/24 07:00 20 97 Room Air 09/09/24 07:00 96.9 107 91/65 (74) Result Diagram: 09/07/24 0630 General: Awake and Alert, no acute distress. Patient did not consent for examination Assessment Assessment # bipolar disorder- on a 5150 due to being gravely disabled Management per Psychiatry # acute kidney injury Likely secondary to dehydration due to vomiting Significantly improved # gastritis Maalox as ordered P.r.n. Zofran and p.r.n. Compazine #Hyponatremia-improved to 133 today #Hypokalemia-potassium 3.1, started on potassium replacement protocol. Continue to monitor potassium levels Gen Arcos M.D PGY1 Date of Service: Sep 09, 2024 Billing Provider: JOANN MORRISSEY MD Common Visit Codes: [id number] INP/OBS CARE(MOD) GEN ARCOS RES Sep 09, 2024 18:35 JOANN MORRISSEY MD Sep 09, 2024 19:28
[2024-09-09 19:56] VITALS: BP 122/72; PULSE 100; RESP 16; TEMP 98; O2SAT 97
[2024-09-10 07:00] VITALS: BP 109/74; PULSE 99; RESP 16; TEMP 98.3; O2SAT 98
[2024-09-10 07:45] VITALS: RESP 18; O2SAT 99
[2024-09-10 08:26] LABS: ALANINE AMINOTRANSFERASE 92 U/L (12-78); ALBUMIN 2.3 G/DL (3.4-5.0); ALBUMIN/GLOBULIN RATIO 0.6 (1.1-1.5); ALKALINE PHOSPHATASE 594 IU/L (46-116); ANION GAP 6 (8-16); ASPARTATE AMINO TRANSFERASE 128 U/L (10-37); BILIRUBIN,TOTAL 16.7 MG/DL (0.1-1.0); BLOOD UREA NITROGEN 17 MG/DL (7-18); BUN/CREATININE RATIO 24.6 (10.0-20.0); CHLORIDE 95 MMOL/L (99-107); CREATININE 0.69 MG/DL (0.40-0.90); GLUCOSE 102 MG/DL (70-104); POTASSIUM 3.8 MMOL/L (3.5-5.1); SODIUM 131 MMOL/L (135-145); TOTAL CARBON DIOXIDE 30.1 MMOL/L (24-32); eCRCL 72 ML/MIN; eGFR 88 ML/MIN
--- NOTE | 2024-09-10 12:41 | PROGRESS NOTE ---
Progress Note Dictate Providers to CC ~ Central Line/PICC still needed: N\\A Antibiotic Ordered?: No MRSA Education MRSA Education Provided to pt: No Objective Vitals Vital Signs Date Time Temp Pulse Resp B/P (MAP) Pulse Ox O2 Delivery O2 Flow Rate FiO2 09/10/24 07:45 18 99 Room Air 09/10/24 07:00 98.3 99 109/74 (86) Lab Results: 09/10/24 0746 Counseling Services Smoking & Tobacco Cessation: > 10 Minutes Problem\\Assessment\\Plan Problems/Diagnosis: (1) Schizoaffective disorder, bipolar type (2) Gravely disabled Psychiatrist's Progress Note Date of Service: Sep 10, 2024 Notes CHART REVIEW Kia is a 55-year-old female on the medical floor of [facility] referred for a mental health evaluation. Toxicology report positive for THC. Kia is an active client of [facility]. Per [place] clinician, client has been decompensating over the past three months. Reporting that she had not been letting them into her home, most recent visitation clinician discovered home to be an unlivable declined. She stated that the client although reporting she has been eating and has food in her home, this information is boss, and client's physical well-being and weight loss is evident, and evidence verify and there is no food in the home. Client lives on her own in his uncertain if she has been able to maintain a medication regiment. ASSESSMENT The patient is interviewed in observation room. Patient seen actively sitting up in bed. The patient endorses "I am doing good" The patient endorses no worsening mental health symptoms. Denies SI. Denies HI. Denies AVH. Patient endorses adequate sleep and food intake. The patient is stable no acute distress noted. The patient is calm, cooperative, and engaged during session. Per staff report no behavior issues. Per staff report patient is compliant with medication regimen. The patient has shown improvement since admission. Will continue daily assessment and adjusting treatment as needed. Closely monitor behavior and response to medication during hospitalization Results Of any Diagn. Testing REVIEW OF LABS WBC 5.8 RBC 3.57 HEMOGLOBIN 13.3 HEMATOCRIT 39.0 PLATELET COUNT 262 SODIUM 129 POTASSIUM 3.6 ANION GAP11 BUN 21 CREATININE 1.66 HEMOGLOBIN A1C 5.4 CALCIUM 9.2 LITHIUM 2.1 ALBUMIN 3.4 TRIGLYCERIDES 143 CHOLESTEROL 240 LDL 136 HDL 73 TSH 0.48 URINE DRUG SCREEN POSITIVE FOR CANNABIS URINE ANALYSIS NEGATIVE Speech: Other (CIRCUMSTANTIAL) Eye Contact: Normal Motor Activity: Normal Affect: Constricted Orientation Impairment: None Memory Impairment: None Attention: Normal Hallucinations: None Other: None Suicidality: None Homicidality: None Delusions: None Behavior: Cooperative Insight: Poor Judgment: Poor Treatment ABILIFY 5 MG P.O. DAILY ZOLOFT 100 MG P.O. Q.H.S. OLANZAPINE 20 MG P.O. Q.H.S. Monitoring by Staff, Milieu, Group, and Individual counseling as needed -- According to the [place] Suicide Assessment the above named patient is on Q 15 MINUTE CHECKS. [id number]-Patient is unable to formulate a plan to safely meet their basic needs of food, clothing, and nursing home due to the severity of their mental illness. We are still titrating medications to an effective dose while maintaining a therapeutic environment to prevent decompensation and readmission. REVIEW OF Clinical notes [X ] RN notes [X] PCT documentation [X] SW notes Labs [ X] Medications [X] Care trends/care activity [X] Vitals [X] DISCUSSION WITH talent coordinator [X] Staff SW [X] Treatment Team [X] Discharge UNSURE AT THIS TIME. TCON CODING VISIT-PSYCHIATRY Date of Service: Sep 10, 2024 Billing Provider: KERRIE RIZO APRN Psych Common Visit Codes: [id number] INP/OBS CARE(Low) KERRIE RIZO APRN Sep 10, 2024 12:40
[2024-09-10] MEDS: sodium chloride 1gm tablet PO SCH (16:04)
[2024-09-10 16:20] LABS: CLARITY,URINE CLEAR (Clear)
[2024-09-10 16:28] LABS: UA COLLECTION TYPE CLN CATCH MIDSTREAM
[2024-09-10 16:29] LABS: COLOR,URINE ORANGE (Yellow)
[2024-09-10 16:40] LABS: BACTERIA,URINE 1+ /HPF (Neg); MUCUS STRANDS FEW /LPF (Neg); RENAL CELLS, URINE FEW /HPF; SQUAMOUS EPITHELIAL CELL,UR MANY /LPF (FEW); TRANSITIONAL EPI CELLS,URINE MODERATE /HPF
[2024-09-10 16:57] LABS: OSMOLALITY 276 MOSM/K (280-300)
[2024-09-10 17:09] LABS: LIPASE 37 U/L (16-77); THYROID STIMULATING HORMONE 0.78 ulU/ml (0.34-4.50)
[2024-09-10 19:00] VITALS: RESP 16; O2SAT 97
[2024-09-10 20:00] VITALS: BP 111/72; PULSE 101; RESP 16; TEMP 97.9; O2SAT 97
[2024-09-11 07:00] VITALS: RESP 12; O2SAT 98
[2024-09-11 08:00] VITALS: BP 88/55; PULSE 92; RESP 14; TEMP 98.5; O2SAT 98
[2024-09-11 09:00] VITALS: BP 90/58
--- NOTE | 2024-09-11 16:41 | PROGRESS NOTE ---
Progress Note Dictate Providers to CC ~ Antibiotic Ordered?: No Objective Vitals Vital Signs Date Time Temp Pulse Resp B/P (MAP) Pulse Ox O2 Delivery O2 Flow Rate FiO2 09/11/24 09:00 90/58 (69) 09/11/24 08:00 98.5 92 14 98 Room Air Lab Results: 09/10/24 0746 Psychiatrist's Progress Note Date of Service: Sep 11, 2024 Notes CHART REVIEW Kia is a 55-year-old female on the medical floor of [facility] referred for a mental health evaluation. Toxicology report positive for THC. Kia is an active client of [facility]. Per [place] clinician, client has been decompensating over the past three months. Reporting that she had not been letting them into her home, most recent visitation clinician discovered home to be an unlivable declined. She stated that the client although reporting she has been eating and has food in her home, this information is boss, and client's physical well-being and weight loss is evident, and evidence verify and there is no food in the home. Client lives on her own in his uncertain if she has been able to maintain a medication regiment. ASSESSMENT The patient is interviewed in conference room.The patient is stable no acute distress noted. The patient is calm, cooperative, and engaged during session. She denies any acute psychiatric symptoms/none noted. No behavioral or safety concerns reported by staff.. . The patient has shown improvement since admission. Will continue daily assessment and adjusting treatment as needed. Closely monitor behavior and response to medication during hospitalization Results Of any Diagn. Testing REVIEW OF LABS WBC 5.8 RBC 3.57 HEMOGLOBIN 13.3 HEMATOCRIT 39.0 PLATELET COUNT 262 SODIUM 129 POTASSIUM 3.6 ANION GAP11 BUN 21 CREATININE 1.66 HEMOGLOBIN A1C 5.4 CALCIUM 9.2 LITHIUM 2.1 ALBUMIN 3.4 TRIGLYCERIDES 143 CHOLESTEROL 240 LDL 136 HDL 73 TSH 0.48 URINE DRUG SCREEN POSITIVE FOR CANNABIS URINE ANALYSIS NEGATIVE Speech: Normal rate.tone Eye Contact: Normal Motor Activity: Normal Affect: Constricted Orientation Impairment: None Memory Impairment: None Attention: Normal Hallucinations: None Other: None Suicidality: None Homicidality: None Delusions: None Behavior: Cooperative Insight: Poor Judgment: Poor Treatment ABILIFY 5 MG P.O. DAILY ZOLOFT 100 MG P.O. Q.H.S. OLANZAPINE 20 MG P.O. Q.H.S. Monitoring by Staff, Milieu, Group, and Individual counseling as needed -- According to the [place] Suicide Assessment the above named patient is on Q 15 MINUTE CHECKS. [id number]-Patient is unable to formulate a plan to safely meet their basic needs of food, clothing, and fci due to the severity of their mental illness. We are still titrating medications to an effective dose while maintaining a therapeutic environment to prevent decompensation and readmission. REVIEW OF Clinical notes [X ] RN notes [X] PCT documentation [X] SW notes Labs [ X] Medications [X] Care trends/care activity [X] Vitals [X] DISCUSSION WITH shorts sifter [X] Staff SW [X] Treatment Team [X] Discharge UNSURE AT THIS TIME. TCON CODING VISIT-PSYCHIATRY Date of Service: Sep 11, 2024 Billing Provider: DANNIE WAYNE DNP Psych Common Visit Codes: [id number] INP/OBS CARE(Mod) DANNIE WAYNE DNP Sep 11, 2024 16:41
--- NOTE | 2024-09-11 17:39 | PROGRESS NOTE ---
Daily Progress Note Providers to CC ~ no additional complaint, resting comfortably in the bed Central Line/PICC still needed: No Perdue-Non Protocol Perdue Indications Met/Not Met: F/C Indications Not Met Antibiotic Timeout Antibiotic Ordered?: No MRSA Education MRSA Education Provided to pt: No Subjective As above Objective Vital Signs Date Time Temp Pulse Resp B/P (MAP) Pulse Ox O2 Delivery O2 Flow Rate FiO2 09/11/24 09:00 90/58 (69) 09/11/24 08:00 98.5 92 14 98 Room Air Vital signs, stable ,afebrile. Pulse Oximetry reflects adequate oxygenation General: well developed, well nourished. Awake , alert, and oriented x4, resting comfortably in the bed, in no acute distress . Skin: Warm, dry, no pallor, no rash or petechiae. HEENT: Atraumatic, normocephalic, EOMI, has icteric sclera B; pink conjunctiva; PERRLA, normal oropharynx, moist oral and nasal mucosa. Tympanic membrane , nose , throat clear. Neck: Trachea midline. Supple, full range of motion, no JVD, bruit , hepatojugular reflex , lymphadenopathy or masses, or other lesions Cardiac: Regular rhythm, regular rate no murmurs, rubs, or gallops. Normal S1 and S2, no S3 noticed. PMI is normal. Respiratory: Equal breath sounds bilaterally, no tachypnea; lungs clear to auscultation bilaterally, no wheezing ,rub or rales, or crackles. Chest wall is symmetric and without deformity. No signs of trauma. Chest wall is nontender. No signs of respiratory distress. Resonance is normal upon percussion bilaterally. Gastrointestinal: Abdomen symmetric, non-distended, soft, non-tender, normal bowel sounds x4 quadrant, normoactive, no hepatosplenomegaly , no masses , no bruit, no flank pain bilaterally. No voluntary guarding, rebound, or rigidity. No tenderness to percussion. No pulsatile masses. Equal femoral pulses. No Vincent's sign or McBurney point tenderness. Back; no CVA tenderness bilaterally, no deformities. Neck and back are without deformity as well. No tenderness noted on palpation of the spinous processes. Spinous processes are midline. Cervical, thoracic, and lumbar paraspinal muscles are not tender and are without spasm. Musculoskeletal: Extremities, normal range of motion, non-tender, muscle strength 5/5 x 4. Negative Homans signs bilaterally on lower extremity. Distal pulses full symmetrical, no clubbing, cyanosis , edema. Neurological: Speech is clear, alert, and oriented x 4. No motor or sensory deficit, deep tendon reflexes normal, cerebellar intact. Cranial nerves II-XII intact. Psych: Alert and or appropriate, normal affect. Vascular: Good distal pulses, which are equal x4; capillary refill less than 2 seconds. Lymphatic, no lymphadenopathy. Result Diagram: 09/10/24 0746 Problem\Assessment\Plan Problems/Diagnosis: (1) Bipolar 1 disorder Assessment/plan # bipolar disorder- on a 5150 due to being gravely disabled Psychiatry following # 4.8 x 8.5 x 7.6 cm irregular heterogeneous mass with central hypodense area along the body of the pancreas. Dr Romero informed the patient that this could be either a primary pancreatic malignancy versus a collection of matted lymph nodes which Elenita Izaguirre health psychologist contacted pt's oncology office of Dr Martinez and faxed over the CT scan results and was informed that the patient needs to follow up in the office and likely change her chemo therapy regimen unfortunately the patient is awaiting for an LPS conservatorship. Recommended today biopsy of the pancreatic mass by interventional radiologist, patient refused procedure # bone and lung cancer We will need to follow up with Oncology once no longer hospitalized on a 5150 # Chronic constipation-Colace 100 mg b.i.d. not started as patient prefers Dulcolax suppository as per mental health nursing staff, # Hyponatremia-chronic , stable, urea added for chronic hyponatremia. Please discuss side effects of all psychiatric medications which can contribute to patient's chronic hyponatremia. patient is currently on multiple psychiatric medication which include Abilify, Cogentin, lithium, olanzapine, sertraline and can contribute to patient's current symptoms of hyponatremia, possible SIADH # Hypokalemia-do the replacement as per protocol based on CMP ordered today. As per nursing staff patient is refusing for potassium replacement # acute kidney injury- resolved # gastritis- Maalox as ordered P.r.n. Andrew and p.r.n. Compazine # Tobacco abuse- The patient has accepted PRN nicotine lozenges and a 21 mg nicotine patch Hospitalist team will continue to follow the patient while hospitalized at [facility] mental health [facility] Sepsis Screening Reassessment Date: Sep 11, 2024 Date of Service: Sep 11, 2024 Billing Provider: PAPA BUCKLEY MD Common Visit Codes: [id number] INP/OBS CARE(MOD) PAPA BUCKLEY MD Sep 11, 2024 17:39
[2024-09-11 19:00] VITALS: RESP 20; O2SAT 94
[2024-09-11 20:00] VITALS: BP 95/80; PULSE 90; RESP 20; TEMP 98.4; O2SAT 94
[2024-09-12 07:00] VITALS: RESP 18; O2SAT 96
[2024-09-12 08:00] VITALS: BP 109/69; PULSE 68; RESP 18; TEMP 98.7; O2SAT 96
--- NOTE | 2024-09-12 16:25 | PROGRESS NOTE ---
Progress Note Dictate Providers to CC ~ Antibiotic Ordered?: No Objective Vitals Vital Signs Date Time Temp Pulse Resp B/P (MAP) Pulse Ox O2 Delivery O2 Flow Rate FiO2 09/12/24 08:00 98.7 68 18 109/69 (82) 96 Room Air Lab Results: 09/10/24 0746 Psychiatrist's Progress Note Date of Service: Sep 12, 2024 Notes CHART REVIEW Kia is a 55-year-old female on the medical floor of [facility] referred for a mental health evaluation. Toxicology report positive for THC. Kia is an active client of [facility]. Per [facility] clinician, client has been decompensating over the past three months. Reporting that she had not been letting them into her home, most recent visitation clinician discovered home to be an unlivable declined. She stated that the client although reporting she has been eating and has food in her home, this information is boss, and client's physical well-being and weight loss is evident, and evidence verify and there is no food in the home. Client lives on her own in his uncertain if she has been able to maintain a medication regiment. ASSESSMENT The patient is interviewed in conference room.The patient is calm, she denies any acute psychiatric symptoms. No behavioral or safety concerns reported by staff Will continue daily assessment and adjusting treatment as needed. Closely monitor behavior and response to medication during hospitalization Results Of any Diagn. Testing REVIEW OF LABS WBC 5.8 RBC 3.57 HEMOGLOBIN 13.3 HEMATOCRIT 39.0 PLATELET COUNT 262 SODIUM 129 POTASSIUM 3.6 ANION GAP11 BUN 21 CREATININE 1.66 HEMOGLOBIN A1C 5.4 CALCIUM 9.2 LITHIUM 2.1 ALBUMIN 3.4 TRIGLYCERIDES 143 CHOLESTEROL 240 LDL 136 HDL 73 TSH 0.48 URINE DRUG SCREEN POSITIVE FOR CANNABIS URINE ANALYSIS NEGATIVE Speech: Normal rate.tone Eye Contact: Normal Motor Activity: Normal Affect: Constricted Orientation Impairment: None Memory Impairment: None Attention: Normal Hallucinations: None Other: None Suicidality: None Homicidality: None Delusions: None Behavior: Cooperative Insight: Poor Judgment: Poor Treatment ABILIFY 5 MG P.O. DAILY ZOLOFT 100 MG P.O. Q.H.S. OLANZAPINE 20 MG P.O. Q.H.S. Monitoring by Staff, Milieu, Group, and Individual counseling as needed -- According to the [place] Suicide Assessment the above named patient is on Q 15 MINUTE CHECKS. [id number]-Patient is unable to formulate a plan to safely meet their basic needs of food, clothing, and usp due to the severity of their mental illness. We are still titrating medications to an effective dose while maintaining a therapeutic environment to prevent decompensation and readmission. REVIEW OF Clinical notes [X ] RN notes [X] PCT documentation [X] SW notes Labs [ X] Medications [X] Care trends/care activity [X] Vitals [X] DISCUSSION WITH inspector final assembly conveyor line [X] Staff SW [X] Treatment Team [X] Discharge UNSURE AT THIS TIME. TCON CODING VISIT-PSYCHIATRY Date of Service: Sep 12, 2024 Billing Provider: DANNIE WAYNE DNP Psych Common Visit Codes: [id number] INP/OBS CARE(Mod) DANNIE WAYNE DNP Sep 12, 2024 16:25
[2024-09-12 18:42] VITALS: RESP 18; O2SAT 97
[2024-09-12 20:19] VITALS: BP 111/57; PULSE 104; RESP 18; TEMP 97.6; O2SAT 97
[2024-09-13 07:59] LABS: ALANINE AMINOTRANSFERASE 90 U/L (12-78); ALKALINE PHOSPHATASE 569 IU/L (46-116); ANION GAP 6 (8-16); BILIRUBIN,TOTAL 17.4 MG/DL (0.1-1.0); BLOOD UREA NITROGEN 18 MG/DL (7-18); BUN/CREATININE RATIO 23.1 (10.0-20.0); CALCIUM 8.8 MG/DL (8.5-10.1); CHLORIDE 97 MMOL/L (99-107); CREATININE 0.78 MG/DL (0.40-0.90); SODIUM 133 MMOL/L (135-145); TOTAL CARBON DIOXIDE 30.2 MMOL/L (24-32); eCRCL 66 ML/MIN; eGFR 76 ML/MIN
[2024-09-13 08:00] VITALS: BP 105/70; PULSE 94; RESP 16; TEMP 97.7; O2SAT 98
[2024-09-13 08:01] LABS: ALBUMIN/GLOBULIN RATIO 0.6 (1.1-1.5); ASPARTATE AMINO TRANSFERASE 141 U/L (10-37); GLUCOSE 93 MG/DL (70-104); POTASSIUM 4.3 MMOL/L (3.5-5.1); TOTAL PROTEIN 5.4 G/DL (6.4-8.2)
[2024-09-13 19:00] VITALS: RESP 16; O2SAT 96
--- NOTE | 2024-09-13 19:22 | PROGRESS NOTE- Residence ---
Progress Note - Resident Providers to CC Resident Creating Document: AUDIE SANCHEZ, RES ~ Antibiotic Timeout Antibiotic Ordered?: No Subjective The patient was evaluated at the bedside. The patient denies any medical complaint. Objective Vital Signs Date Time Temp Pulse Resp B/P (MAP) Pulse Ox O2 Delivery O2 Flow Rate FiO2 09/13/24 08:00 97.7 94 16 105/70 (82) 98 Room Air Physical exam: General: Well alert, well oriented, not confused, not agitated, not in acute distress, malnourished, well cooperated during the physical. HEENT: Conjunctive are pink, sclerae clear, no icterus, pupil is equal in both sides, reactive to light, no ear discharge, no pharyngeal erythema or an edema. Neck: Supple, no JVD, no lymphadenopathy and thyromegaly. Chest: Equal air entry on both lungs, no additional sounds no rhonchi no wheezing at the moment. Cardiovascular: S1-S2 regular sinus rhythm and, regular rate, no gallops, no rubs, no murmurs Abdomen: No visible peristalsis, Bowel sounds present on auscultation, soft, nontender, no guarding, no rigidity Extremities: No obvious deformities, no pitting edema bilaterally, capillary refill intact, peripheral pulsations are intact on both sides Central Nervous System: No focal neurological deficits, no motor or sensory weakness in all 4 extremities, could move all 4 extremities, 2+ deep tendon reflexes, negative Babinski. Musculoskeletal: No joint swelling, deformities, inflammations, and no scoliosis and back tenderness Skin: Warm and dry. Result Diagram: 09/13/24 0732 Assessment Assessment Bipolar disorder- on a 5150 due to being gravely disabled Management per Psychiatry Acute kidney injury-resolved Likely secondary to dehydration due to vomiting Currently within reference range. Gastritis Maalox as ordered P.r.n. Zofran and p.r.n. Compazine Hyponatremia-improved. Current sodium 133. Hypokalemia-resolved: potassium 3.1, started on potassium replacement protocol. Continue to monitor potassium levels Disposition: Hospitalist team will continue to monitor the patient. Audie Sal Internal Medicine Resident [facility] Date of Service: Sep 13, 2024 Billing Provider: JASWANT RIOS MD Common Visit Codes: [id number] INP/OBS CARE(MOD) AUDIE SANCHEZ, RES Sep 13, 2024 19:22 JASWANT RIOS MD September 27, 2024 17:52
--- NOTE | 2024-09-13 19:25 | PROGRESS NOTE ---
Progress Note Dictate Providers to CC ~ Antibiotic Ordered?: No Objective Vitals Vital Signs Date Time Temp Pulse Resp B/P (MAP) Pulse Ox O2 Delivery O2 Flow Rate FiO2 09/13/24 08:00 97.7 94 16 105/70 (82) 98 Room Air Lab Results: 09/13/24 0732 Psychiatrist's Progress Note Date of Service: Sep 13, 2024 Since PT.'S Admission CHART REVIEW Kia is a 55-year-old female on the medical floor of [facility] referred for a mental health evaluation. Toxicology report positive for THC. Kia is an active client of [facility]. Per [place] clinician, client has been decompensating over the past three months. Reporting that she had not been letting them into her home, most recent visitation clinician discovered home to be an unlivable declined. She stated that the client although reporting she has been eating and has food in her home, this information is boss, and client's physical well-being and weight loss is evident, and evidence verify and there is no food in the home. Client lives on her own in his uncertain if she has been able to maintain a medication regiment. ASSESSMENT The patient is interviewed in conference room.The patient is stable no acute distress noted. States she feels good " I had a BM today" denies any recent stressors or changes in her mental condition, No behavioral or safety concerns reported by staff. patient is on Tcon. Will continue daily assessment and adjusting treatment as needed. Closely monitor behavior and response to medication during hospitalization Results Of any Diagn. Testing REVIEW OF LABS WBC 5.8 RBC 3.57 HEMOGLOBIN 13.3 HEMATOCRIT 39.0 PLATELET COUNT 262 SODIUM 129 POTASSIUM 3.6 ANION GAP11 BUN 21 CREATININE 1.66 HEMOGLOBIN A1C 5.4 CALCIUM 9.2 LITHIUM 2.1 ALBUMIN 3.4 TRIGLYCERIDES 143 CHOLESTEROL 240 LDL 136 HDL 73 TSH 0.48 URINE DRUG SCREEN POSITIVE FOR CANNABIS URINE ANALYSIS NEGATIVE Speech: Normal rate.tone Eye Contact: Normal Motor Activity: Normal Affect: Constricted Orientation Impairment: None Memory Impairment: None Attention: Normal Hallucinations: None Other: None Suicidality: None Homicidality: None Delusions: None Behavior: Cooperative Insight: fair Judgment: fair Treatment ABILIFY 5 MG P.O. DAILY ZOLOFT 100 MG P.O. Q.H.S. OLANZAPINE 20 MG P.O. Q.H.S. Monitoring by Staff, Milieu, Group, and Individual counseling as needed -- According to the [place] Suicide Assessment the above named patient is on Q 15 MINUTE CHECKS. [id number]-Patient is unable to formulate a plan to safely meet their basic needs of food, clothing, and residential due to the severity of their mental illness. We are still titrating medications to an effective dose while maintaining a therapeutic environment to prevent decompensation and readmission. REVIEW OF Clinical notes [X ] RN notes [X] PCT documentation [X] SW notes Labs [ X] Medications [X] Care trends/care activity [X] Vitals [X] DISCUSSION WITH manager of recruiting [X] Staff SW [X] Treatment Team [X] Discharge UNSURE AT THIS TIME. TCON CODING VISIT-PSYCHIATRY Date of Service: Sep 13, 2024 Billing Provider: DANNIE WAYNE DNP Psych Common Visit Codes: [id number] INP/OBS CARE(Mod) DANNIE WAYNE DNP Sep 13, 2024 19:24
[2024-09-13 20:00] VITALS: BP 101/69; PULSE 105; RESP 16; TEMP 97.9; O2SAT 96
[2024-09-14 06:30] VITALS: BP 98/68; PULSE 92; RESP 16; TEMP 98.5; O2SAT 96
[2024-09-14 08:00] VITALS: RESP 16; O2SAT 96
--- NOTE | 2024-09-14 10:00 | PROGRESS NOTE ---
Progress Note Dictate Providers to CC ~ Central Line/PICC still needed: N\\A Antibiotic Ordered?: No MRSA Education MRSA Education Provided to pt: No Objective Vitals Vital Signs Date Time Temp Pulse Resp B/P (MAP) Pulse Ox O2 Delivery O2 Flow Rate FiO2 09/14/24 06:30 98.5 92 16 98/68 (78) 96 Room Air Lab Results: 09/13/24 0732 Counseling Services Smoking & Tobacco Cessation: > 10 Minutes Problem\\Assessment\\Plan Problems/Diagnosis: (1) Schizoaffective disorder, bipolar type (2) Gravely disabled Psychiatrist's Progress Note Date of Service: Sep 14, 2024 Notes CHART REVIEW Kai is a 55-year-old female on the medical floor of [facility] referred for a mental health evaluation. Toxicology report positive for THC. Kia is an [place] [facility] Per [place] clinician, client has been decompensating over the past three months. Reporting that she had not been letting them into her home, most recent visitation clinician discovered home to be an unlivable declined. She stated that the client although reporting she has been eating and has food in her home, this information is boss, and client's physical well-being and weight loss is evident, and evidence verify and there is no food in the home. Client lives on her own in his uncertain if she has been able to maintain a medication regiment. ASSESSMENT ASSESSMENT The patient is interviewed in observation room. Patient seen actively sitting up in bed. The patient endorses "okay." The patient endorses no worsening mental health symptoms. Denies SI. Denies HI. Denies AVH. Patient endorses adequate sleep and food intake. The patient is stable no acute distress noted. The patient is calm, cooperative, and engaged during session. Per staff report no behavior issues. Per staff report patient is compliant with medication regimen. The patient has shown improvement since admission. Will continue daily assessment and adjusting treatment as needed. Closely monitor behavior and response to medication during hospitalization Results Of any Diagn. Testing REVIEW OF LABS WBC 5.8 RBC 3.57 HEMOGLOBIN 13.3 HEMATOCRIT 39.0 PLATELET COUNT 262 SODIUM 129 POTASSIUM 3.6 ANION GAP11 BUN 21 CREATININE 1.66 HEMOGLOBIN A1C 5.4 CALCIUM 9.2 LITHIUM 2.1 ALBUMIN 3.4 TRIGLYCERIDES 143 CHOLESTEROL 240 LDL 136 HDL 73 TSH 0.48 URINE DRUG SCREEN POSITIVE FOR CANNABIS URINE ANALYSIS NEGATIVE Appearnace: Disheveled Speech: Other (CIRCUMSTANTIAL) Eye Contact: Other (INTERMITTENT) Motor Activity: Normal Affect: Constricted Orientation Impairment: None Memory Impairment: None Attention: Normal Hallucinations: None Other: None Suicidality: None Homicidality: None Delusions: None Behavior: Cooperative Insight: Fair Judgment: Fair Treatment ABILIFY 5 MG P.O. DAILY ZOLOFT 100 MG P.O. Q.H.S. OLANZAPINE 20 MG P.O. Q.H.S. Monitoring by Staff, Milieu, Group, and Individual counseling as needed -- According to the [place] Suicide Assessment the above named patient is on Q 15 MINUTE CHECKS. VOLUNTARY REVIEW OF Clinical notes [X ] RN notes [X] PCT documentation [X] SW notes Labs [ X] Medications [X] Care trends/care activity [X] Vitals [X] DISCUSSION WITH system dispatcher [X] Staff SW [X] Treatment Team [X] Discharge UNSURE AT THIS TIME. TCON CODING VISIT-PSYCHIATRY Date of Service: Sep 14, 2024 Billing Provider: KERRIE RIZO APRN Psych Common Visit Codes: [id number] INP/OBS CARE(Mod) KERRIE RIZO APRN Sep 14, 2024 10:00
[2024-09-14 19:50] VITALS: RESP 16; O2SAT 95
[2024-09-14 19:54] VITALS: BP 106/70; PULSE 85; RESP 16; TEMP 97.9; O2SAT 99
[2024-09-15 07:00] VITALS: BP 99/66; PULSE 68; RESP 16; TEMP 98; O2SAT 95
[2024-09-15 07:25] VITALS: RESP 16; O2SAT 95
--- NOTE | 2024-09-15 12:36 | PROGRESS NOTE ---
Progress Note Dictate Providers to CC ~ Central Line/PICC still needed: N\\A Antibiotic Ordered?: No MRSA Education MRSA Education Provided to pt: No Objective Vitals Vital Signs Date Time Temp Pulse Resp B/P (MAP) Pulse Ox O2 Delivery O2 Flow Rate FiO2 09/15/24 07:25 16 95 09/15/24 07:00 98.0 68 99/66 (77) Room Air Lab Results: 09/13/24 0732 Problem\\Assessment\\Plan Problems/Diagnosis: (1) Schizoaffective disorder, bipolar type (2) Gravely disabled Psychiatrist's Progress Note Date of Service: Sep 15, 2024 Notes CHART REVIEW Kia is a 55-year-old female on the medical floor of [facility] referred for a mental health evaluation. Toxicology report positive for THC. Kia is an active client of [facility]. Per [place] clinician, client has been decompensating over the past three months. Reporting that she had not been letting them into her home, most recent visitation clinician discovered home to be an unlivable declined. She stated that the client although reporting she has been eating and has food in her home, this information is boss, and client's physical well-being and weight loss is evident, and evidence verify and there is no food in the home. Client lives on her own in his uncertain if she has been able to maintain a medication regiment. ASSESSMENT The patient is interviewed in observation room. Patient seen actively sitting in rec room. The patient endorses "I am doing okay." The patient endorses no worsening mental health symptoms. Denies SI. Denies HI. Denies AVH. Patient endorses adequate sleep and food intake. The patient is stable no acute distress noted. The patient is calm, cooperative, and engaged during session. Per staff report no behavior issues. Per staff report patient is compliant with medication regimen. The patient has shown improvement since admission. Will continue daily assessment and adjusting treatment as needed. Closely monitor behavior and response to medication during hospitalization Results Of any Diagn. Testing REVIEW OF LABS WBC 5.8 RBC 3.57 HEMOGLOBIN 13.3 HEMATOCRIT 39.0 PLATELET COUNT 262 SODIUM 129 POTASSIUM 3.6 ANION GAP11 BUN 21 CREATININE 1.66 HEMOGLOBIN A1C 5.4 CALCIUM 9.2 LITHIUM 2.1 ALBUMIN 3.4 TRIGLYCERIDES 143 CHOLESTEROL 240 LDL 136 HDL 73 TSH 0.48 URINE DRUG SCREEN POSITIVE FOR CANNABIS URINE ANALYSIS NEGATIVE Speech: Other (Circumstantial) Eye Contact: Other (Intermittent) Motor Activity: Normal Affect: Full Orientation Impairment: None Memory Impairment: None Attention: Normal Hallucinations: None Other: None Suicidality: None Homicidality: None Delusions: None Behavior: Cooperative Insight: Fair, Poor Judgment: Poor Treatment ABILIFY 5 MG P.O. DAILY ZOLOFT 100 MG P.O. Q.H.S. OLANZAPINE 20 MG P.O. Q.H.S. Monitoring by Staff, Milieu, Group, and Individual counseling as needed -- According to the [place] Suicide Assessment the above named patient is on Q 15 MINUTE CHECKS. VOLUNTARY REVIEW OF Clinical notes [X ] RN notes [X] PCT documentation [X] SW notes Labs [ X] Medications [X] Care trends/care activity [X] Vitals [X] DISCUSSION WITH dye maker [X] Staff SW [X] Treatment Team [X] Discharge UNSURE AT THIS TIME. TCON CODING VISIT-PSYCHIATRY Date of Service: Sep 15, 2024 Billing Provider: KERRIE RIZO APRN Psych Common Visit Codes: [id number] INP/OBS CARE(Low) KERRIE RIZO APRN Sep 15, 2024 12:36
--- NOTE | 2024-09-15 19:56 | PROGRESS NOTE ---
Daily Progress Note Providers to CC ~ Antibiotic Timeout Antibiotic Ordered?: No Subjective Patient was taking shower she is able to ambulate but as per nursing staff her jaundice is getting more worse. Later she refused to get examined Objective Vital Signs Date Time Temp Pulse Resp B/P (MAP) Pulse Ox O2 Delivery O2 Flow Rate FiO2 09/15/24 19:22 Room Air 09/15/24 07:25 16 95 09/15/24 07:00 98.0 68 99/66 (77) Result Diagram: 09/13/24 0732 General-patient not in any acute distress, awake chronically ill-appearing Eyes- no icterus or pallor seen in eyes Skin - skin appear pale Neurology-grossly intact, nonfocal alert awake Extremity- able to walk Problem\Assessment\Plan Problems/Diagnosis: (1) Bipolar 1 disorder Assessment/plan # bipolar disorder- on a 0 due to being gravely disabled Psychiatry following # 4.8 x 8.5 x 7.6 cm irregular heterogeneous mass with central hypodense area along the body of the pancreas. Dr Romero informed the patient that this could be either a primary pancreatic malignancy versus a collection of matted lymph nodes which Elenita Izaguirre director of psychology contacted pt's oncology office of Dr Martinez and faxed over the CT scan results and was informed that the patient needs to follow up in the office and likely change her chemo therapy regimen unfortunately the patient is awaiting for an LPS conservatorship. Recommended today biopsy of the pancreatic mass by interventional radiologist, patient refused procedure # bone and lung cancer We will need to follow up with Oncology once no longer hospitalized on a 5150 # Chronic constipation-Colace 100 mg b.i.d. not started as patient prefers Dulcolax suppository as per mental health nursing staff, # Hyponatremia-chronic , stable, urea added for chronic hyponatremia. Please discuss side effects of all psychiatric medications which can contribute to patient's chronic hyponatremia. patient is currently on multiple psychiatric medication which include Abilify, Cogentin, lithium, olanzapine, sertraline and can contribute to patient's current symptoms of hyponatremia, possible SIADH # Hypokalemia-do the replacement as per protocol based on CMP ordered today. As per nursing staff patient is refusing for potassium replacement # acute kidney injury- resolved # gastritis- Maalox as ordered P.r.n. Andrew and p.r.n. Compazine # Tobacco abuse- The patient has accepted PRN nicotine lozenges and a 21 mg nicotine patch Hospitalist team will continue to follow the patient while hospitalized at [facility] [place] Date of Service: Sep 15, 2024 Billing Provider: ELÍAS SNOW MD Common Visit Codes: [id number] INP/OBS CARE (LOW), [id number] INP/OBS CARE(LOW) ELÍAS SNOW MD Sep 15, 2024 19:56
[2024-09-15 20:00] VITALS: BP 104/66; PULSE 96; RESP 20; TEMP 98.5; O2SAT 97
[2024-09-15 23:59] VITALS: BP 104/66; PULSE 70; RESP 20; TEMP 98.5; O2SAT 97
[2024-09-16 07:00] VITALS: RESP 12; O2SAT 99
[2024-09-16 08:00] VITALS: BP 89/53; PULSE 52; RESP 12; TEMP 97.9; O2SAT 99
[2024-09-16 08:26] LABS: ALANINE AMINOTRANSFERASE 73 U/L (12-78); ALBUMIN 1.9 G/DL (3.4-5.0); ALKALINE PHOSPHATASE 569 IU/L (46-116); ANION GAP 6 (8-16); BILIRUBIN,TOTAL 18.4 MG/DL (0.1-1.0); BLOOD UREA NITROGEN 16 MG/DL (7-18); CALCIUM 8.6 MG/DL (8.5-10.1); CHLORIDE 100 MMOL/L (99-107); SODIUM 134 MMOL/L (135-145); TOTAL CARBON DIOXIDE 28.4 MMOL/L (24-32)
[2024-09-16 08:29] LABS: ALBUMIN/GLOBULIN RATIO 0.6 (1.1-1.5); ASPARTATE AMINO TRANSFERASE 125 U/L (10-37); BUN/CREATININE RATIO 21.1 (10.0-20.0); CREATININE 0.76 MG/DL (0.40-0.90); GLUCOSE 102 MG/DL (70-104); POTASSIUM 3.5 MMOL/L (3.5-5.1); TOTAL PROTEIN 5.3 G/DL (6.4-8.2); eCRCL 68 ML/MIN; eGFR 79 ML/MIN
--- NOTE | 2024-09-16 11:52 | PROGRESS NOTE ---
Progress Note Dictate Providers to CC ~ Central Line/PICC still needed: N\\A Antibiotic Ordered?: No MRSA Education MRSA Education Provided to pt: No Objective Vitals Vital Signs Date Time Temp Pulse Resp B/P (MAP) Pulse Ox O2 Delivery O2 Flow Rate FiO2 09/16/24 08:00 97.9 52 12 89/53 (65) 99 Room Air Lab Results: 09/16/24 0756 Problem\\Assessment\\Plan Problems/Diagnosis: (1) Schizoaffective disorder, bipolar type (2) Gravely disabled Psychiatrist's Progress Note Date of Service: Sep 16, 2024 Notes CHART REVIEW Kia is a 55-year-old female on the medical floor of [facility] referred for a mental health evaluation. Toxicology report positive for THC. Kia is an active client of [facility]. Per [place] clinician, client has been decompensating over the past three months. Reporting that she had not been letting them into her home, most recent visitation clinician discovered home to be an unlivable declined. She stated that the client although reporting she has been eating and has food in her home, this information is boss, and client's physical well-being and weight loss is evident, and evidence verify and there is no food in the home. Client lives on her own in his uncertain if she has been able to maintain a medication regiment. ASSESSMENT The patient is interviewed in observation room. Patient seen actively sitting up in bed. The patient endorses "okay." The patient endorses no worsening mental health symptoms. Denies SI. Denies HI. Denies AVH. Patient endorses adequate sleep and food intake. The patient is stable no acute distress noted. The patient is calm, cooperative, and engaged during session. Per staff report no behavior issues. Per staff report patient is compliant with medication regimen. The patient has shown improvement since admission. Will continue daily assessment and adjusting treatment as needed. Closely monitor behavior and response to medication during hospitalization Results Of any Diagn. Testing REVIEW OF LABS WBC 5.8 RBC 3.57 HEMOGLOBIN 13.3 HEMATOCRIT 39.0 PLATELET COUNT 262 SODIUM 129 POTASSIUM 3.6 ANION GAP11 BUN 21 CREATININE 1.66 HEMOGLOBIN A1C 5.4 CALCIUM 9.2 LITHIUM 2.1 ALBUMIN 3.4 TRIGLYCERIDES 143 CHOLESTEROL 240 LDL 136 HDL 73 TSH 0.48 URINE DRUG SCREEN POSITIVE FOR CANNABIS URINE ANALYSIS NEGATIVE Appearnace: Other Speech: Other (CIRCUMSTANTIAL) Eye Contact: Other (INTERMITTENT) Motor Activity: Normal Affect: Constricted Orientation Impairment: None Memory Impairment: None Attention: Normal Hallucinations: None Other: None Suicidality: None Homicidality: None Delusions: None Behavior: Cooperative Insight: Poor Judgment: Poor Treatment ABILIFY 5 MG P.O. DAILY ZOLOFT 100 MG P.O. Q.H.S. OLANZAPINE 20 MG P.O. Q.H.S. Monitoring by Staff, Milieu, Group, and Individual counseling as needed -- According to the [place] Suicide Assessment the above named patient is on Q 15 MINUTE CHECKS. VOLUNTARY REVIEW OF Clinical notes [X ] RN notes [X] PCT documentation [X] SW notes Labs [ X] Medications [X] Care trends/care activity [X] Vitals [X] DISCUSSION WITH in home baby sitter [X] Staff SW [X] Treatment Team [X] Discharge UNSURE AT THIS TIME. TCON CODING VISIT-PSYCHIATRY Date of Service: Sep 16, 2024 Billing Provider: KERRIE RIZO APRN Psych Common Visit Codes: [id number] INP/OBS CARE(Low) KERRIE RIZO APRN Sep 16, 2024 11:52
[2024-09-16 18:39] VITALS: RESP 12; O2SAT 98
[2024-09-16 19:16] VITALS: BP 102/60; PULSE 96; RESP 18; TEMP 98.3; O2SAT 100
[2024-09-16] MEDS ORDERED: mag hydrox/Alum hydrox/simeth 30ml oral suspension PO ONE (20:20)
[2024-09-16] MEDS: mag hydrox/Alum hydrox/simeth 30ml oral suspension PO PRN (20:25)
[2024-09-16] MEDS: traZODone 50mg tablet PO PRN (20:26)
[2024-09-17 07:00] VITALS: RESP 14; O2SAT 97
[2024-09-17 08:00] VITALS: BP 87/52; PULSE 100; RESP 14; TEMP 97.8; O2SAT 97
--- NOTE | 2024-09-17 14:19 | PROGRESS NOTE ---
Progress Note Dictate Providers to CC ~ Central Line/PICC still needed: N\\A Antibiotic Ordered?: No MRSA Education MRSA Education Provided to pt: No Objective Vitals Vital Signs Date Time Temp Pulse Resp B/P (MAP) Pulse Ox O2 Delivery O2 Flow Rate FiO2 09/17/24 08:00 97.8 100 14 87/52 (64) 97 Room Air Lab Results: 09/16/24 0756 Problem\\Assessment\\Plan Problems/Diagnosis: (1) Schizoaffective disorder, bipolar type (2) Gravely disabled Psychiatrist's Progress Note Date of Service: September 17, 2024 Notes CHART REVIEW Kia is a 55-year-old female on the medical floor of [facility] referred for a mental health evaluation. Toxicology report positive for THC. Kia is an active client of [facility]. Per [place] clinician, client has been decompensating over the past three months. Reporting that she had not been letting them into her home, most recent visitation clinician discovered home to be an unlivable declined. She stated that the client although reporting she has been eating and has food in her home, this information is boss, and client's physical well-being and weight loss is evident, and evidence verify and there is no food in the home. Client lives on her own in his uncertain if she has been able to maintain a medication regiment. ASSESSMENT The patient is interviewed in observation room. Patient seen actively walking in hallway. The patient endorses "okay." The patient endorses no worsening mental health symptoms. Denies SI. Denies HI. Denies AVH. Patient endorses adequate sleep and food intake. The patient is stable no acute distress noted. The patient is calm, cooperative, and engaged during session. Per staff report no behavior issues. Per staff report patient is compliant with medication regimen. The patient has shown improvement since admission. Will continue daily assessment and adjusting treatment as needed. Closely monitor behavior and response to medication during hospitalization Results Of any Diagn. Testing REVIEW OF LABS WBC 5.8 RBC 3.57 HEMOGLOBIN 13.3 HEMATOCRIT 39.0 PLATELET COUNT 262 SODIUM 129 POTASSIUM 3.6 ANION GAP11 BUN 21 CREATININE 1.66 HEMOGLOBIN A1C 5.4 CALCIUM 9.2 LITHIUM 2.1 ALBUMIN 3.4 TRIGLYCERIDES 143 CHOLESTEROL 240 LDL 136 HDL 73 TSH 0.48 URINE DRUG SCREEN POSITIVE FOR CANNABIS URINE ANALYSIS NEGATIVE Appearnace: Other Speech: Other (CIRCUMSTANTIAL) Eye Contact: Other (INTERMITTENT) Motor Activity: Normal Affect: Constricted Orientation Impairment: None Memory Impairment: None Attention: Normal Hallucinations: None Other: None Suicidality: None Homicidality: None Delusions: None Behavior: Cooperative Insight: Poor Judgment: Poor Treatment ABILIFY 5 MG P.O. DAILY ZOLOFT 100 MG P.O. Q.H.S. OLANZAPINE 20 MG P.O. Q.H.S. Monitoring by Staff, Milieu, Group, and Individual counseling as needed -- According to the [place] Suicide Assessment the above named patient is on Q 15 MINUTE CHECKS. VOLUNTARY REVIEW OF Clinical notes [X ] RN notes [X] PCT documentation [X] SW notes Labs [ X] Medications [X] Care trends/care activity [X] Vitals [X] DISCUSSION WITH chairman emeritus [X] Staff SW [X] Treatment Team [X] Discharge UNSURE AT THIS TIME. TCON CODING VISIT-PSYCHIATRY Date of Service: September 17, 2024 Billing Provider: KERRIE RIZO APRN Psych Common Visit Codes: [id number] INP/OBS CARE(Low) KERRIE RIZO APRN September 17, 2024 14:19
--- NOTE | 2024-09-17 17:21 | PROGRESS NOTE- Residence ---
Progress Note - Resident Providers to CC Resident Creating Document: SANDRA RICE, NAREN ~ Antibiotic Timeout Antibiotic Ordered?: No Subjective The patient was seen in the corridor of Behavioral Health unit. Patient denied being seen by a doctor and denied physical examination. Objective Vital Signs Date Time Temp Pulse Resp B/P (MAP) Pulse Ox O2 Delivery O2 Flow Rate FiO2 09/17/24 08:00 97.8 100 14 87/52 (64) 97 Room Air Result Diagram: 09/16/24 0756 Patient denied physical examination Assessment Assessment Bipolar disorder- on a 5150 due to being gravely disabled Management per Psychiatry Acute kidney injury-resolved Likely secondary to dehydration due to vomiting Currently within reference range. Gastritis Continue Maalox P.r.n. Zofran and p.r.n. Compazine Hyponatremia-improved. Hypokalemia-resolved: Disposition: Hospitalist team will continue to monitor the patient. Sandra Rice MD Internal Medicine Resident, PGY-1 Date of Service: September 17, 2024 Billing Provider: JOANN MORRISSEY MD Common Visit Codes: [id number] INP/OBS CARE(MOD) SANDRA RICE RES September 17, 2024 17:21 JOANN MORRISSEY MD September 17, 2024 21:10
[2024-09-17 18:36] VITALS: RESP 14; O2SAT 98
[2024-09-17 19:50] VITALS: BP 109/67; PULSE 75; RESP 16; TEMP 98.2; O2SAT 97
[2024-09-18] MEDS: HYDROcodone/acetaminophen 5mg/325mg tablet PO ONE (02:48)
[2024-09-18 07:00] VITALS: RESP 18; O2SAT 98
--- NOTE | 2024-09-18 07:49 | PROGRESS NOTE ---
Progress Note Dictate Providers to CC ~ Central Line/PICC still needed: N\\A Antibiotic Ordered?: No MRSA Education MRSA Education Provided to pt: No Objective Vitals Vital Signs Date Time Temp Pulse Resp B/P (MAP) Pulse Ox O2 Delivery O2 Flow Rate FiO2 09/18/24 03:48 14 09/17/24 19:50 98.2 75 109/67 (81) 97 09/17/24 18:36 Room Air Lab Results: 09/16/24 0756 Counseling Services Smoking & Tobacco Cessation: > 10 Minutes Problem\\Assessment\\Plan Problems/Diagnosis: (1) Schizoaffective disorder, bipolar type (2) Gravely disabled Psychiatrist's Progress Note Date of Service: September 18, 2024 Notes CHART REVIEW Kia is a 55-year-old female on the medical floor of [facility] referred for a mental health evaluation. Toxicology report positive for THC. Kia is an active client of [facility]. Per [place] clinician, client has been decompensating over the past three months. Reporting that she had not been letting them into her home, most recent visitation clinician discovered home to be an unlivable declined. She stated that the client although reporting she has been eating and has food in her home, this information is boss, and client's physical well-being and weight loss is evident, and evidence verify and there is no food in the home. Client lives on her own in his uncertain if she has been able to maintain a medication regiment. ASSESSMENT The patient is interviewed in observation room. Patient seen actively walking in hallway. The patient endorses "I am doing good." The patient endorses no worsening mental health symptoms. Denies SI. Denies HI. Denies AVH. Patient endorses adequate sleep and food intake. The patient is stable no acute distress noted. The patient is calm, cooperative, and engaged during session. Per staff report no behavior issues. Per staff report patient is compliant with medication regimen. The patient has shown improvement since admission. Will continue daily assessment and adjusting treatment as needed. Closely monitor behavior and response to medication during hospitalization Results Of any Diagn. Testing REVIEW OF LABS WBC 5.8 RBC 3.57 HEMOGLOBIN 13.3 HEMATOCRIT 39.0 PLATELET COUNT 262 SODIUM 129 POTASSIUM 3.6 ANION GAP11 BUN 21 CREATININE 1.66 HEMOGLOBIN A1C 5.4 CALCIUM 9.2 LITHIUM 2.1 ALBUMIN 3.4 TRIGLYCERIDES 143 CHOLESTEROL 240 LDL 136 HDL 73 TSH 0.48 URINE DRUG SCREEN POSITIVE FOR CANNABIS URINE ANALYSIS NEGATIVE Appearnace: Other Speech: Other (CIRCUMSTANTIAL) Eye Contact: Normal Motor Activity: Normal Affect: Full Orientation Impairment: None Memory Impairment: None Attention: Normal Hallucinations: None Other: None Suicidality: None Homicidality: None Delusions: None Behavior: Cooperative Insight: Poor Judgment: Poor Treatment ABILIFY 5 MG P.O. DAILY ZOLOFT 100 MG P.O. Q.H.S. OLANZAPINE 20 MG P.O. Q.H.S. Monitoring by Staff, Milieu, Group, and Individual counseling as needed -- According to the [place] Suicide Assessment the above named patient is on Q 15 MINUTE CHECKS. VOLUNTARY REVIEW OF Clinical notes [X ] RN notes [X] PCT documentation [X] SW notes Labs [ X] Medications [X] Care trends/care activity [X] Vitals [X] DISCUSSION WITH accounting administrator [X] Staff SW [X] Treatment Team [X] Discharge UNSURE AT THIS TIME. TCON CODING VISIT-PSYCHIATRY Date of Service: September 18, 2024 Billing Provider: KERRIE RIZO APRN Psych Common Visit Codes: [id number] INP/OBS CARE(Low) KERRIE RIZO APRN September 18, 2024 07:49
[2024-09-18 08:00] VITALS: BP 90/62; PULSE 73; RESP 18; TEMP 96.6; O2SAT 98
[2024-09-18] MEDS: traMADol 50MG tablet PO PRN (13:12)
[2024-09-18 19:00] VITALS: RESP 17; O2SAT 98
[2024-09-18 20:00] VITALS: BP 92/64; PULSE 70; RESP 17; TEMP 98.1; O2SAT 98
[2024-09-19] MEDS: acetaminophen 325mg tablet PO PRN (01:39)
[2024-09-19 07:00] VITALS: RESP 16; O2SAT 97
[2024-09-19 08:00] VITALS: PULSE 77; RESP 16; TEMP 98.1; O2SAT 97
[2024-09-19 08:11] LABS: ALANINE AMINOTRANSFERASE 73 U/L (12-78); ALBUMIN 1.8 G/DL (3.4-5.0); ALKALINE PHOSPHATASE 598 IU/L (46-116); ANION GAP 5 (8-16); BILIRUBIN,TOTAL 19.9 MG/DL (0.1-1.0); BLOOD UREA NITROGEN 16 MG/DL (7-18); CALCIUM 8.6 MG/DL (8.5-10.1); CHLORIDE 99 MMOL/L (99-107); SODIUM 132 MMOL/L (135-145); TOTAL CARBON DIOXIDE 27.6 MMOL/L (24-32)
[2024-09-19 08:21] LABS: ALBUMIN/GLOBULIN RATIO 0.5 (1.1-1.5); ASPARTATE AMINO TRANSFERASE 131 U/L (10-37); BUN/CREATININE RATIO 21.1 (10.0-20.0); CREATININE 0.76 MG/DL (0.40-0.90); GLUCOSE 76 MG/DL (70-104); POTASSIUM 3.8 MMOL/L (3.5-5.1); TOTAL PROTEIN 5.1 G/DL (6.4-8.2); eCRCL 68 ML/MIN; eGFR 79 ML/MIN
--- NOTE | 2024-09-19 10:48 | PROGRESS NOTE ---
Daily Progress Note Providers to CC ~ no new complaint today, resting comfortably in the bed Central Line/PICC still needed: No Perdue-Non Protocol Perdue Indications Met/Not Met: F/C Indications Not Met Antibiotic Timeout Antibiotic Ordered?: No MRSA Education MRSA Education Provided to pt: No Subjective As above Objective Vital Signs Date Time Temp Pulse Resp B/P (MAP) Pulse Ox O2 Delivery O2 Flow Rate FiO2 09/19/24 10:14 16 09/18/24 20:00 98.1 70 92/64 (73) 98 Room Air Vital signs, stable ,afebrile. Pulse Oximetry reflects adequate oxygenation. General: well developed, well nourished. Awake , alert, and oriented x4, resting comfortably in the bed, in no acute distress . Skin: Warm, dry, no pallor, no rash or petechiae. HEENT: Atraumatic, normocephalic, EOMI, anicteric sclera B; pink conjunctiva; PERRLA, normal oropharynx, moist oral and nasal mucosa. Tympanic membrane , nose , throat clear. Neck: Trachea midline. Supple, full range of motion, no JVD, bruit , hepatojugular reflex , lymphadenopathy or masses, or other lesions Cardiac: Regular rhythm, regular rate no murmurs, rubs, or gallops. Normal S1 and S2, no S3 noticed. PMI is normal. Respiratory: Equal breath sounds bilaterally, no tachypnea; lungs clear to auscultation bilaterally, no wheezing ,rub or rales, or crackles. Chest wall is symmetric and without deformity. No signs of trauma. Chest wall is nontender. No signs of respiratory distress. Resonance is normal upon percussion bilaterally. Gastrointestinal: Abdomen symmetric, non-distended, soft, non-tender, normal bowel sounds x4 quadrant, normoactive, no hepatosplenomegaly , no masses , no bruit, no flank pain bilaterally. No voluntary guarding, rebound, or rigidity. No tenderness to percussion. No pulsatile masses. Equal femoral pulses. No Vincent's sign or McBurney point tenderness. Back; no CVA tenderness bilaterally, no deformities. Neck and back are without deformity as well. No tenderness noted on palpation of the spinous processes. Spinous processes are midline. Cervical, thoracic, and lumbar paraspinal muscles are not tender and are without spasm. Musculoskeletal: Extremities, normal range of motion, non-tender, muscle strength 5/5 x 4. Negative Homans signs bilaterally on lower extremity. Distal pulses full symmetrical, no clubbing, cyanosis , edema. Neurological: Speech is clear, alert, and oriented x 4. No motor or sensory deficit, deep tendon reflexes normal, cerebellar intact. Cranial nerves II-XII intact. Psych: Alert and or appropriate, normal affect. Vascular: Good distal pulses, which are equal x4; capillary refill less than 2 seconds. Lymphatic, no lymphadenopathy. Result Diagram: 09/19/24 0705 Problem\Assessment\Plan Problems/Diagnosis: (1) Bipolar 1 disorder Assessment/plan # bipolar disorder- on a 5150 due to being gravely disabled Psychiatry following # 4.8 x 8.5 x 7.6 cm irregular heterogeneous mass with central hypodense area along the body of the pancreas. Dr Romero informed the patient that this could be either a primary pancreatic malignancy versus a collection of matted lymph nodes which Elenita Izaguirre consulting psychiatrist contacted pt's oncology office of Dr Martinez and faxed over the CT scan results and was informed that the patient needs to follow up in the office and likely change her chemo therapy regimen unfortunately the patient is awaiting for an LPS conservatorship. Recommended today biopsy of the pancreatic mass by interventional radiologist, patient refused procedure Malnutrition, BMI 18, Nutrition consult # bone and lung cancer We will need to follow up with Oncology once no longer hospitalized on a 5150 # Chronic constipation-Colace 100 mg b.i.d. not started as patient prefers Dulcolax suppository as per mental health nursing staff, # Hyponatremia-chronic , stable, mild, Pl psychiatric medications which can contribute to patient's chronic hyponatremia. patient is currently on multiple psychiatric medication which include Abilify, Cogentin, lithium, olanzapine, sertraline and can contribute to patient's current symptoms of hyponatremia, possible SIADH # Hypokalemia-do the replacement as per protocol based on CMP ordered today. As per nursing staff patient is refusing for potassium replacement # acute kidney injury- resolved # gastritis- Maalox as ordered P.r.n. Andrew and p.r.n. Compazine # Tobacco abuse- The patient has accepted PRN nicotine lozenges and a 21 mg nicotine patch Hospitalist team will continue to follow the patient while hospitalized at [facility] mental health [facility] Sepsis Screening Reassessment Date: September 19, 2024 Date of Service: September 19, 2024 Billing Provider: PAPA BUCKLEY MD Common Visit Codes: [id number] INP/OBS CARE(LOW) PAPA BUCKLEY MD September 19, 2024 10:48
--- NOTE | 2024-09-19 11:43 | PROGRESS NOTE ---
Progress Note Dictate Providers to CC ~ Central Line/PICC still needed: N\\A Antibiotic Ordered?: No MRSA Education MRSA Education Provided to pt: No Objective Vitals Vital Signs Date Time Temp Pulse Resp B/P (MAP) Pulse Ox O2 Delivery O2 Flow Rate FiO2 09/19/24 10:14 16 09/18/24 20:00 98.1 70 92/64 (73) 98 Room Air Lab Results: 09/19/24 0705 Problem\\Assessment\\Plan Problems/Diagnosis: (1) Schizoaffective disorder, bipolar type (2) Gravely disabled Psychiatrist's Progress Note Date of Service: September 19, 2024 Notes CHART REVIEW Kia is a 55-year-old female on the medical floor of [facility] referred for a mental health evaluation. Toxicology report positive for THC. Kia is an active client of [facility]. Per [place] clinician, client has been decompensating over the past three months. Reporting that she had not been letting them into her home, most recent visitation clinician discovered home to be an unlivable declined. She stated that the client although reporting she has been eating and has food in her home, this information is boss, and client's physical well-being and weight loss is evident, and evidence verify and there is no food in the home. Client lives on her own in his uncertain if she has been able to maintain a medication regiment. ASSESSMENT The patient is interviewed in observation room. Patient seen actively resting in bed with eyes closed. The patient endorses "Okay." The patient endorses "I like it here and staff is nice but I am ready to go home." The patient endorses no worsening mental health symptoms. Denies SI. Denies HI. Denies AVH. Patient endorses adequate sleep and food intake. The patient is stable no acute distress noted. The patient is calm, cooperative, and engaged during session. Per staff report no behavior issues. Per staff report patient is compliant with medication regimen. The patient has shown improvement since admission. Will continue daily assessment and adjusting treatment as needed. Closely monitor behavior and response to medication during hospitalization Results Of any Diagn. Testing REVIEW OF LABS WBC 5.8 RBC 3.57 HEMOGLOBIN 13.3 HEMATOCRIT 39.0 PLATELET COUNT 262 SODIUM 129 POTASSIUM 3.6 ANION GAP11 BUN 21 CREATININE 1.66 HEMOGLOBIN A1C 5.4 CALCIUM 9.2 LITHIUM 2.1 ALBUMIN 3.4 TRIGLYCERIDES 143 CHOLESTEROL 240 LDL 136 HDL 73 TSH 0.48 URINE DRUG SCREEN POSITIVE FOR CANNABIS URINE ANALYSIS NEGATIVE Appearnace: Other Speech: Other (CIRCUMSTANTIAL) Eye Contact: Normal Motor Activity: Normal Affect: Full Orientation Impairment: None Memory Impairment: None Attention: Normal Hallucinations: None Other: None Suicidality: None Homicidality: None Delusions: None Behavior: Cooperative Insight: Poor Judgment: Poor Treatment ABILIFY 5 MG P.O. DAILY ZOLOFT 100 MG P.O. Q.H.S. OLANZAPINE 20 MG P.O. Q.H.S. Monitoring by Staff, Milieu, Group, and Individual counseling as needed -- According to the [place] Suicide Assessment the above named patient is on Q 15 MINUTE CHECKS. VOLUNTARY REVIEW OF Clinical notes [X ] RN notes [X] PCT documentation [X] SW notes Labs [ X] Medications [X] Care trends/care activity [X] Vitals [X] DISCUSSION WITH bottle cleaner [X] Staff SW [X] Treatment Team [X] Discharge UNSURE AT THIS TIME. TCON CODING VISIT-PSYCHIATRY Date of Service: September 19, 2024 Billing Provider: KERRIE RIZO APRN Psych Common Visit Codes: [id number] INP/OBS CARE(Low) KERRIE RIZO APRN September 19, 2024 11:43
[2024-09-19 14:10] LABS: MEAN CORPUSCULAR HGB CONC 34.6 g/dL (33.0-36.5); WHITE BLOOD COUNT 7.3 X10'3 (4.5-11.0)
[2024-09-19 14:11] LABS: HEMATOCRIT 27.3 % (35.0-45.0); HEMOGLOBIN 9.4 g/dl (12.0-16.0); MEAN CORPUSCULAR HEMOGLOBIN 35.8 PG (27.0-31.0); MEAN CORPUSCULAR VOLUME 103.6 FL (78-98); MEAN PLATELET VOLUME 8.5 FL (7.4-10.4); PLATELET COUNT 361 X10'3 (140-440); RED BLOOD COUNT 2.63 X10'6 (4.20-5.60); RED CELL DISTRIBUTION WIDTH 19.6 % (11.5-14.5)
[2024-09-19 14:46] LABS: TOTAL CELLS COUNTED 100
[2024-09-19 14:47] LABS: ANISOCYTOSIS 2+; PLATELET ESTIMATE NORMAL; POLYCHROMASIA 1+; TARGET CELLS 2+
[2024-09-19 19:00] VITALS: RESP 18; O2SAT 99
[2024-09-19 20:00] VITALS: BP 94/60; PULSE 85; RESP 18; TEMP 98.2; O2SAT 99
[2024-09-20 07:00] VITALS: RESP 21; O2SAT 99
[2024-09-20 08:00] VITALS: BP 84/50; PULSE 95; RESP 21; TEMP 97; O2SAT 99
--- NOTE | 2024-09-20 10:43 | PROGRESS NOTE ---
Progress Note Dictate Providers to CC ~ Central Line/PICC still needed: N\\A Antibiotic Ordered?: No MRSA Education MRSA Education Provided to pt: No Objective Vitals Vital Signs Date Time Temp Pulse Resp B/P (MAP) Pulse Ox O2 Delivery O2 Flow Rate FiO2 09/20/24 08:00 97.0 95 21 84/50 (61) 99 Room Air Lab Results: 09/19/24 0705 09/19/24 0705 Counseling Services Smoking & Tobacco Cessation: > 10 Minutes Problem\\Assessment\\Plan Problems/Diagnosis: (1) Schizoaffective disorder, bipolar type (2) Gravely disabled Psychiatrist's Progress Note Date of Service: September 20, 2024 Notes CHART REVIEW Kia is a 55-year-old female on the medical floor of [facility] referred for a mental health evaluation. Toxicology report positive for THC. Kia is an active client of [facility]. Per [place] clinician, client has been decompensating over the past three months. Reporting that she had not been letting them into her home, most recent visitation clinician discovered home to be an unlivable declined. She stated that the client although reporting she has been eating and has food in her home, this information is boss, and client's physical well-being and weight loss is evident, and evidence verify and there is no food in the home. Client lives on her own in his uncertain if she has been able to maintain a medication regiment. ASSESSMENT The patient is interviewed in observation room. Patient seen actively resting in bed with eyes closed. The patient endorses "Okay." The patient endorses no worsening mental health symptoms. Denies SI. Denies HI. Denies AVH. Patient endorses adequate sleep and food intake. The patient is stable no acute distress noted. The patient is calm, cooperative, and engaged during session. Per staff report no behavior issues. Per staff report patient is compliant with medication regimen. The patient has shown improvement since admission. Will continue daily assessment and adjusting treatment as needed. Closely monitor behavior and response to medication during hospitalization Results Of any Diagn. Testing REVIEW OF LABS WBC 5.8 RBC 3.57 HEMOGLOBIN 13.3 HEMATOCRIT 39.0 PLATELET COUNT 262 SODIUM 129 POTASSIUM 3.6 ANION GAP11 BUN 21 CREATININE 1.66 HEMOGLOBIN A1C 5.4 CALCIUM 9.2 LITHIUM 2.1 ALBUMIN 3.4 TRIGLYCERIDES 143 CHOLESTEROL 240 LDL 136 HDL 73 TSH 0.48 URINE DRUG SCREEN POSITIVE FOR CANNABIS URINE ANALYSIS NEGATIVE Appearnace: Other Speech: Impoverished Eye Contact: Other (INTERMITTENT) Motor Activity: Normal Affect: Constricted Orientation Impairment: None Attention: Normal Hallucinations: None Other: None Suicidality: None Homicidality: None Delusions: None Behavior: Cooperative Insight: Poor Judgment: Poor Treatment ABILIFY 5 MG P.O. DAILY ZOLOFT 100 MG P.O. Q.H.S. OLANZAPINE 20 MG P.O. Q.H.S. Monitoring by Staff, Milieu, Group, and Individual counseling as needed -- According to the [place] Suicide Assessment the above named patient is on Q 15 MINUTE CHECKS. VOLUNTARY REVIEW OF Clinical notes [X ] RN notes [X] PCT documentation [X] SW notes Labs [ X] Medications [X] Care trends/care activity [X] Vitals [X] DISCUSSION WITH library specialist [X] Staff SW [X] Treatment Team [X] Discharge UNSURE AT THIS TIME. TCON CODING VISIT-PSYCHIATRY Date of Service: September 20, 2024 Billing Provider: KERRIE RIZO APRN Psych Common Visit Codes: [id number] INP/OBS CARE(Low) KERRIE RIZO APRN September 20, 2024 10:43
[2024-09-20 19:00] VITALS: RESP 14; O2SAT 97
[2024-09-20 20:00] VITALS: BP 95/53; PULSE 96; RESP 14; TEMP 98; O2SAT 96
[2024-09-21 07:00] VITALS: RESP 16; O2SAT 93
[2024-09-21 08:00] VITALS: BP 90/62; PULSE 64; RESP 16; TEMP 97.7; O2SAT 93
[2024-09-21] MEDS: HYDROcodone/acetaminophen 5mg/325mg tablet PO PRN (10:58)
--- NOTE | 2024-09-21 13:02 | PROGRESS NOTE ---
Progress Note Dictate Providers to CC ~ Central Line/PICC still needed: N\\A Antibiotic Ordered?: No MRSA Education MRSA Education Provided to pt: No Objective Vitals Vital Signs Date Time Temp Pulse Resp B/P (MAP) Pulse Ox O2 Delivery O2 Flow Rate FiO2 09/21/24 10:58 16 09/21/24 08:00 97.7 64 90/62 (71) 93 Room Air Lab Results: 09/19/24 0705 09/19/24 0705 Counseling Services Smoking & Tobacco Cessation: > 10 Minutes Problem\\Assessment\\Plan Problems/Diagnosis: (1) Schizoaffective disorder, bipolar type (2) Gravely disabled Psychiatrist's Progress Note Date of Service: September 21, 2024 Notes CHART REVIEW Kia is a 55-year-old female on the medical floor of [facility] referred for a mental health evaluation. Toxicology report positive for THC. Kia is an active client of [facility]. Per [place] clinician, client has been decompensating over the past three months. Reporting that she had not been letting them into her home, most recent visitation clinician discovered home to be an unlivable declined. She stated that the client although reporting she has been eating and has food in her home, this information is boss, and client's physical well-being and weight loss is evident, and evidence verify and there is no food in the home. Client lives on her own in his uncertain if she has been able to maintain a medication regiment. ASSESSMENT The patient is interviewed in observation room. Patient seen actively walking in hallway. The patient endorses "fine." The patient endorses no worsening mental health symptoms. Denies SI. Denies HI. Denies AVH. Patient endorses adequate sleep and food intake. The patient is stable no acute distress noted. The patient is calm, cooperative, and engaged during session. Per staff report no behavior issues. Per staff report patient is compliant with medication regimen. The patient has shown improvement since admission. Will continue daily assessment and adjusting treatment as needed. Closely monitor behavior and response to medication during hospitalization Results Of any Diagn. Testing REVIEW OF LABS WBC 5.8 RBC 3.57 HEMOGLOBIN 13.3 HEMATOCRIT 39.0 PLATELET COUNT 262 SODIUM 129 POTASSIUM 3.6 ANION GAP11 BUN 21 CREATININE 1.66 HEMOGLOBIN A1C 5.4 CALCIUM 9.2 LITHIUM 2.1 ALBUMIN 3.4 TRIGLYCERIDES 143 CHOLESTEROL 240 LDL 136 HDL 73 TSH 0.48 URINE DRUG SCREEN POSITIVE FOR CANNABIS URINE ANALYSIS NEGATIVE Appearnace: Other Speech: Other (CIRCUMSTANTIAL) Eye Contact: Other Motor Activity: Normal Affect: Full Orientation Impairment: None Memory Impairment: None Attention: Normal Hallucinations: None Other: None Suicidality: None Homicidality: None Delusions: None Behavior: Cooperative Insight: Poor Judgment: Poor Treatment ABILIFY 5 MG P.O. DAILY ZOLOFT 100 MG P.O. Q.H.S. OLANZAPINE 20 MG P.O. Q.H.S. Monitoring by Staff, Milieu, Group, and Individual counseling as needed -- According to the [place] Suicide Assessment the above named patient is on Q 15 MINUTE CHECKS. VOLUNTARY REVIEW OF Clinical notes [X ] RN notes [X] PCT documentation [X] SW notes Labs [ X] Medications [X] Care trends/care activity [X] Vitals [X] DISCUSSION WITH cabin agent [X] Staff SW [X] Treatment Team [X] Discharge UNSURE AT THIS TIME. TCON CODING VISIT-PSYCHIATRY Date of Service: September 21, 2024 Billing Provider: KERRIE RIZO APRN Psych Common Visit Codes: [id number] INP/OBS CARE(Low) KERRIE RIZO APRN September 21, 2024 13:02
--- NOTE | 2024-09-21 18:40 | PROGRESS NOTE- Residence ---
Progress Note - Resident Providers to CC Resident Creating Document: LITZY ACEVES RES ~ Central Line/PICC still needed: No Perdue-Non Protocol Perdue Indications Met/Not Met: F/C Indications Not Met Antibiotic Timeout Antibiotic Ordered?: No Subjective Patient seen and be able. Reports pain that occasionally comes and goes. Received information from the nurses, patient has been in significant amount of pain and has been tossing in and out of bed. Baseline mental status with no change. Objective Vital Signs Date Time Temp Pulse Resp B/P (MAP) Pulse Ox O2 Delivery O2 Flow Rate FiO2 09/21/24 11:58 18 09/21/24 08:00 97.7 64 90/62 (71) 93 Room Air Result Diagram: 09/19/24 0705 09/19/24 07 Declined physical exam Assessment Assessment Bipolar disorder- on a 5150 due to being gravely disabled Management per Psychiatry Acute kidney injury-resolved Likely secondary to dehydration due to vomiting Currently within reference range. Gastritis Continue Maalox P.r.n. Zofran and p.r.n. Compazine Pancreatic mass Breast cancer Pain secondary to the malignancies Only pain medication is 50 mg p.r.n. tramadol q.8 hours; started the patient on [place] 10 q.4 hours PRN Being treated outpatient with likely an anti estrogen receptor medication, not on EMR. Pancreatic mass recently diagnosed in our hospital Disposition: Hospitalist team will continue to monitor the patient. Recommend hospice/palliative referral Litzy Aceves PGY2, Internal medicine resident Date of Service: September 21, 2024 Billing Provider: JOANN MORRISSEY MD Common Visit Codes: [id number] INP/OBS CARE(MOD) LITZY ACEVES RES September 21, 2024 18:40 JOANN MORRISSEY MD September 21, 2024 21:09
[2024-09-21 19:00] VITALS: RESP 16; O2SAT 94
[2024-09-21 20:00] VITALS: BP 90/57; PULSE 96; RESP 16; TEMP 98.8; O2SAT 94
[2024-09-21] MEDS: sodium chloride 1gm tablet PO SCH (20:52)
[2024-09-21] MEDS: HYDROcodone/acetaminophen 10/325mg tab PO PRN (20:53)
[2024-09-22 07:00] VITALS: BP 100/60; PULSE 135; RESP 16; TEMP 97.1; O2SAT 89
[2024-09-22 09:58] LABS: ALANINE AMINOTRANSFERASE 63 U/L (12-78); ALBUMIN 1.6 G/DL (3.4-5.0); ALKALINE PHOSPHATASE 669 IU/L (46-116); ANION GAP 9 (8-16); BILIRUBIN,TOTAL 22.1 MG/DL (0.1-1.0); BLOOD UREA NITROGEN 22 MG/DL (7-18); BUN/CREATININE RATIO 26.8 (10.0-20.0); CALCIUM 8.2 MG/DL (8.5-10.1); CHLORIDE 98 MMOL/L (99-107); CREATININE 0.82 MG/DL (0.40-0.90); SODIUM 132 MMOL/L (135-145); TOTAL CARBON DIOXIDE 25.5 MMOL/L (24-32); eCRCL 64 ML/MIN; eGFR 72 ML/MIN
[2024-09-22 10:19] LABS: ASPARTATE AMINO TRANSFERASE 167 U/L (10-37); GLUCOSE 79 MG/DL (70-104); POTASSIUM 3.3 MMOL/L (3.5-5.1)
[2024-09-22 10:35] LABS: ALBUMIN/GLOBULIN RATIO 0.6 (1.1-1.5); TOTAL PROTEIN 4.4 G/DL (6.4-8.2)
[2024-09-22] MEDS ORDERED: potassium Cl 40MEQ/1/2NS 520ml 520 ML IV PRN (12:10)
[2024-09-22] MEDS ORDERED: potassium Cl 20 mEq SR tablet PO PRN (12:10)
--- NOTE | 2024-09-22 14:14 | PROGRESS NOTE ---
Progress Note Dictate Providers to CC ~ Central Line/PICC still needed: N\\A Antibiotic Ordered?: No MRSA Education MRSA Education Provided to pt: No Objective Vitals Vital Signs Date Time Temp Pulse Resp B/P (MAP) Pulse Ox O2 Delivery O2 Flow Rate FiO2 09/22/24 07:43 16 09/22/24 07:00 89 Room Air 09/22/24 07:00 97.1 135 100/60 (73) Lab Results: 09/19/24 0705 09/22/24 0916 Counseling Services Smoking & Tobacco Cessation: > 10 Minutes Problem\\Assessment\\Plan Problems/Diagnosis: (1) Schizoaffective disorder, bipolar type (2) Gravely disabled Psychiatrist's Progress Note Date of Service: September 22, 2024 Notes CHART REVIEW Kia is a 55-year-old female on the medical floor of [facility] referred for a mental health evaluation. Toxicology report positive for THC. Kia is an active client of [facility]. Per [place] clinician, client has been decompensating over the past three months. Reporting that she had not been letting them into her home, most recent visitation clinician discovered home to be an unlivable declined. She stated that the client although reporting she has been eating and has food in her home, this information is boss, and client's physical well-being and weight loss is evident, and evidence verify and there is no food in the home. Client lives on her own in his uncertain if she has been able to maintain a medication regiment. ASSESSMENT The patient is interviewed in observation room. Patient seen actively resting with eyes . The patient endorses "Okay." "I really would like a cigarette." The patient endorses no worsening mental health symptoms. Denies SI. Denies HI. Denies AVH. Patient endorses adequate sleep and food intake. The patient is stable no acute distress noted. The patient is calm, cooperative, and engaged during session. Per staff report no behavior issues. Per staff report patient is compliant with medication regimen. The patient has shown improvement since admission. Will continue daily assessment and adjusting treatment as needed. Closely monitor behavior and response to medication during hospitalization Results Of any Diagn. Testing REVIEW OF LABS WBC 5.8 RBC 3.57 HEMOGLOBIN 13.3 HEMATOCRIT 39.0 PLATELET COUNT 262 SODIUM 129 POTASSIUM 3.6 ANION GAP11 BUN 21 CREATININE 1.66 HEMOGLOBIN A1C 5.4 CALCIUM 9.2 LITHIUM 2.1 ALBUMIN 3.4 TRIGLYCERIDES 143 CHOLESTEROL 240 LDL 136 HDL 73 TSH 0.48 URINE DRUG SCREEN POSITIVE FOR CANNABIS URINE ANALYSIS NEGATIVE Appearnace: Other Speech: Other (CIRCUMSTANTIAL) Eye Contact: Other (INTERMITTENT) Motor Activity: Normal Affect: Constricted Orientation Impairment: None Memory Impairment: None Attention: Normal Hallucinations: None Other: None Suicidality: None Homicidality: None Delusions: None Behavior: Cooperative Insight: Poor Judgment: Poor Treatment ABILIFY 5 MG P.O. DAILY [place] 100 MG P.O. Q.H.S. OLANZAPINE 20 MG P.O. Q.H.S. Monitoring by Staff, Milieu, Group, and Individual counseling as needed -- According to the [place] Suicide Assessment the above named patient is on Q 15 MINUTE CHECKS. VOLUNTARY REVIEW OF Clinical notes [X ] RN notes [X] PCT documentation [X] SW notes Labs [ X] Medications [X] Care trends/care activity [X] Vitals [X] DISCUSSION WITH computer analyst supervisor [X] Staff SW [X] Treatment Team [X] Discharge UNSURE AT THIS TIME. TCON CODING VISIT-PSYCHIATRY Date of Service: September 22, 2024 Billing Provider: KERRIE RIZO APRN Psych Common Visit Codes: [id number] INP/OBS CARE(Low) KERRIE RIZO APRN September 22, 2024 14:14
[2024-09-22 19:00] VITALS: RESP 20; O2SAT 95
[2024-09-22] MEDS: potassium Cl 20 mEq SR tablet PO PRN (19:48)
[2024-09-22 20:00] VITALS: PULSE 111; RESP 16; RESP 20; TEMP 97.9; O2SAT 95
[2024-09-23 07:00] VITALS: RESP 18; O2SAT 97
[2024-09-23 08:00] VITALS: BP 102/63; PULSE 120; RESP 18; TEMP 97.8; O2SAT 97
--- NOTE | 2024-09-23 10:45 | PROGRESS NOTE ---
Progress Note Dictate Providers to CC ~ Central Line/PICC still needed: N\\A Antibiotic Ordered?: No MRSA Education MRSA Education Provided to pt: No Objective Vitals Vital Signs Date Time Temp Pulse Resp B/P (MAP) Pulse Ox O2 Delivery O2 Flow Rate FiO2 09/23/24 08:00 97.8 120 18 102/63 (76) 97 Room Air Lab Results: 09/19/24 0705 09/22/24 0916 Problem\\Assessment\\Plan Problems/Diagnosis: (1) Schizoaffective disorder, bipolar type (2) Gravely disabled Psychiatrist's Progress Note Date of Service: September 23, 2024 Notes CHART REVIEW Kia is a 55-year-old female on the medical floor of [facility] referred for a mental health evaluation. Toxicology report positive for THC. Kia is an active client of [facility]. Per [place] clinician, client has been decompensating over the past three months. Reporting that she had not been letting them into her home, most recent visitation clinician discovered home to be an unlivable declined. She stated that the client although reporting she has been eating and has food in her home, this information is boss, and client's physical well-being and weight loss is evident, and evidence verify and there is no food in the home. Client lives on her own in his uncertain if she has been able to maintain a medication regiment. ASSESSMENT The patient is interviewed in observation room. Patient seen actively resting with eyes closed. The patient endorses "Okay." The patient endorses no worsening mental health symptoms. Denies SI. Denies HI. Denies AVH. Patient endorses adequate sleep and food intake. The patient is stable no acute distress noted. The patient is calm, cooperative, and engaged during session. Per staff report no behavior issues. Per staff report patient is compliant with medication regimen. The patient has shown improvement since admission. Will continue daily assessment and adjusting treatment as needed. Closely monitor behavior and response to medication during hospitalization Results Of any Diagn. Testing REVIEW OF LABS WBC 5.8 RBC 3.57 HEMOGLOBIN 13.3 HEMATOCRIT 39.0 PLATELET COUNT 262 SODIUM 129 POTASSIUM 3.6 ANION GAP11 BUN 21 CREATININE 1.66 HEMOGLOBIN A1C 5.4 CALCIUM 9.2 LITHIUM 2.1 ALBUMIN 3.4 TRIGLYCERIDES 143 CHOLESTEROL 240 LDL 136 HDL 73 TSH 0.48 URINE DRUG SCREEN POSITIVE FOR CANNABIS URINE ANALYSIS NEGATIVE Appearnace: Other Speech: Other (CIRCUMSTANTIAL) Eye Contact: Other (INTERMITTENT) Motor Activity: Normal Affect: Constricted Orientation Impairment: None Memory Impairment: None Attention: Normal Hallucinations: None Other: None Suicidality: None Homicidality: None Delusions: None Behavior: Cooperative Insight: Poor Judgment: Poor Treatment ABILIFY 5 MG P.O. DAILY [place] 100 MG P.O. Q.H.S. Decrease OLANZAPINE 10 MG P.O. Q.H.S. Monitoring by Staff, Milieu, Group, and Individual counseling as needed -- According to the [place] Suicide Assessment the above named patient is on Q 15 MINUTE CHECKS. VOLUNTARY REVIEW OF Clinical notes [X ] RN notes [X] PCT documentation [X] SW notes Labs [ X] Medications [X] Care trends/care activity [X] Vitals [X] DISCUSSION WITH lumber carrier operator [X] Staff SW [X] Treatment Team [X] Discharge DISCHARGE HOME ONCE STABLE. CODING VISIT-PSYCHIATRY Date of Service: September 23, 2024 Billing Provider: KERRIE RIZO APRN Psych Common Visit Codes: [id number] INP/OBS CARE(Low) KERRIE RIZO APRN September 23, 2024 10:45
[2024-09-23] MEDS: loperamide 2mg capsule PO PRN (12:29)
[2024-09-23] MEDS ORDERED: SERT-433 PO (12:49)
[2024-09-23] MEDS ORDERED: GABA-530 PO (12:49)
--- NOTE | 2024-09-23 18:50 | PROGRESS NOTE- Residence ---
Progress Note - Resident Providers to CC Resident Creating Document: JUSTIN STEVENS, NAREN ~ Antibiotic Timeout Antibiotic Ordered?: No Subjective Seen and examined the patient at bedside. No subjective complaints. Baseline mental status with no change. Objective Vital Signs Date Time Temp Pulse Resp B/P (MAP) Pulse Ox O2 Delivery O2 Flow Rate FiO2 09/23/24 08:00 97.8 120 18 102/63 (76) 97 Room Air Result Diagram: 09/19/24 0705 09/22/24 0916 Declined physical examination. Advance Care Planning Advanced Care plannin - 30 Minutes Assessment Assessment Bipolar disorder- on a 5150 due to being gravely disabled. Plan Plan Bipolar disorder- on a 5150 due to being gravely disabled Management per Psychiatry Acute kidney injury-resolved Likely secondary to dehydration due to vomiting Currently within reference range. Gastritis Continue Maalox P.r.n. Zofran and p.r.n. Compazine Pancreatic mass Breast cancer Pain secondary to the malignancies On 50 mg p.r.n. tramadol q.8 hours; started the patient on [place] 10 q.4 hours PRN Being treated outpatient with likely an anti estrogen receptor medication, not on EMR. Pancreatic mass recently diagnosed in our hospital Disposition: Hospitalist team will continue to monitor the patient. Justin Stevens PGY1, Internal medicine resident Date of Service: September 23, 2024 Billing Provider: JOANN MORRISSEY MD Common Visit Codes: [id number] INP/OBS CARE(MOD) JUSTIN STEVENS RES September 23, 2024 18:50 JOANN MORRISSEY MD September 23, 2024 21:26
[2024-09-23 19:00] VITALS: RESP 17
[2024-09-23 19:59] VITALS: BP 91/50; PULSE 101; RESP 17; TEMP 97.7; O2SAT 95
[2024-09-23] MEDS: aripiprazole 5mg tablet PO SCH (21:01)
[2024-09-23] MEDS: olanzapine 10mg tablet PO SCH (21:01)
[2024-09-24 07:30] VITALS: BP 90/40; PULSE 109; RESP 16; TEMP 96.9; O2SAT 92
[2024-09-24] MEDS: HALLS - SOOTHE MENTHOL 1.8 MG cough drop LOZENGE MM PRN (09:52)
--- NOTE | 2024-09-24 10:58 | PROGRESS NOTE- Residence ---
Progress Note - Resident Providers to CC Resident Creating Document: LITZY ACEVES RES ~ Central Line/PICC still needed: No Perdue-Non Protocol Perdue Indications Met/Not Met: F/C Indications Not Met Antibiotic Timeout Antibiotic Ordered?: No Subjective Mental health contacted for an acute worsening of the patient's condition with nausea vomiting and diarrhea. Drop in blood pressure associated with the same, intermittently delirious during this period as well. Objective Vital Signs Date Time Temp Pulse Resp B/P (MAP) Pulse Ox O2 Delivery O2 Flow Rate FiO2 09/24/24 09:28 16 09/23/24 19:59 97.7 101 91/50 (64) 95 Room Air Result Diagram: 09/22/24 0916 Assessment Assessment Bipolar disorder- on a 5150 due to being gravely disabled. Active breast cancer and apparent newly diagnosed pancreatic cancer Plan Plan Pancreatic mass Breast cancer Pain secondary to the malignancies Nausea, vomiting, and diarrhea Pancreatic mass likely obstructing CBD; significantly elevated bilirubin Pain well controlled with the regimen of tramadol 50 mg q.8 hours p.r.n. and [place] 10 q.4 hours p.r.n. Vomiting and nausea uncontrolled with Zofran or Compazine. 25 mL of Benadryl given for acute episodes of vomiting. We will try Haldol next if vomiting does not improve. Patient is already on olanzapine Discussed in great detail with the social service liaison and the nurse about the current condition of the patient. The patient is gravely disabled secondary to her underlying psychiatric illness. She lives at a facility and was scheduled for discharge today back to the facility to be followed by mental health. Considering the acute deterioration with the patient as well as her chronic medical problems that leave her to have significantly poor prognosis, discussion regarding comfort care was made. Case management made aware. No prior end of life care goals were all discussed, patient has no family either. Disposition: Hospitalist team will continue to monitor the patient. Litzy Aceves PGY2, Internal medicine resident Date of Service: September 24, 2024 Billing Provider: JOANN MORRISSEY MD, DEEPANJALI, RES September 24, 2024 10:58
[2024-09-24] MEDS: diphenhydrAMINE 25 MG/10 ML UD oral solution PO ONE (11:31)
[2024-09-24 12:03] LABS: HEMOGLOBIN 9.1 g/dl (12.0-16.0)
[2024-09-24 12:04] LABS: HEMATOCRIT 26.9 % (35.0-45.0); MEAN CORPUSCULAR HEMOGLOBIN 35.3 PG (27.0-31.0); MEAN CORPUSCULAR HGB CONC 33.9 g/dL (33.0-36.5); MEAN CORPUSCULAR VOLUME 104.1 FL (78-98); MEAN PLATELET VOLUME 7.7 FL (7.4-10.4); PLATELET COUNT 367 X10'3 (140-440); RED BLOOD COUNT 2.58 X10'6 (4.20-5.60); RED CELL DISTRIBUTION WIDTH 19.3 % (11.5-14.5)
[2024-09-24 12:45] LABS: ANISOCYTOSIS 2+; NUCLEATED RED BLOOD CELLS 1 /100WBC (0-0); PLATELET ESTIMATE NORMAL; TOTAL CELLS COUNTED 100
[2024-09-24 12:46] LABS: MICROCYTOSIS 1+; STOMATOCYTES 2+
[2024-09-24 12:48] LABS: POLYCHROMASIA 1+
[2024-09-24 12:51] LABS: TARGET CELLS 1+
--- NOTE | 2024-09-24 14:53 | PROGRESS NOTE ---
Progress Note Dictate Providers to CC ~ Antibiotic Ordered?: No MRSA Education MRSA Education Provided to pt: No Objective Vitals Vital Signs Date Time Temp Pulse Resp B/P (MAP) Pulse Ox O2 Delivery O2 Flow Rate FiO2 09/24/24 09:28 16 09/24/24 07:30 92 Room Air 09/24/24 07:30 96.9 109 90/40 (57) Lab Results: 09/24/24 1141 09/22/24 0916 Counseling Services Smoking & Tobacco Cessation: > 10 Minutes Problem\\Assessment\\Plan Problems/Diagnosis: (1) Schizoaffective disorder, bipolar type (2) Gravely disabled Psychiatrist's Progress Note Date of Service: September 24, 2024 Notes CHART REVIEW Kia is a 55-year-old female on the medical floor of [facility] referred for a mental health evaluation. Toxicology report positive for THC. Kia is an active client of [facility]. Per [place] clinician, client has been decompensating over the past three months. Reporting that she had not been letting them into her home, most recent visitation clinician discovered home to be an unlivable declined. She stated that the client although reporting she has been eating and has food in her home, this information is boss, and client's physical well-being and weight loss is evident, and evidence verify and there is no food in the home. Client lives on her own in his uncertain if she has been able to maintain a medication regiment. ASSESSMENT The patient is interviewed in observation room. Patient seen actively resting with eyes closed. The patient endorses "Okay." The patient endorses "they stole all my stuff; them over there." Denies SI. Denies HI. Denies AH. Patient endorses adequate sleep and food intake. The patient is stable no acute distress noted. The patient is delusional, and disengaged during session.The patient has regressed. Per staff report no behavior issues. Per staff report patient is compliant with medication regimen. Will continue daily assessment and adjusting treatment as needed. Closely monitor behavior and response to medication during hospitalization Results Of any Diagn. Testing REVIEW OF LABS WBC 5.8 RBC 3.57 HEMOGLOBIN 13.3 HEMATOCRIT 39.0 PLATELET COUNT 262 SODIUM 129 POTASSIUM 3.6 ANION GAP11 BUN 21 CREATININE 1.66 HEMOGLOBIN A1C 5.4 CALCIUM 9.2 LITHIUM 2.1 ALBUMIN 3.4 TRIGLYCERIDES 143 CHOLESTEROL 240 LDL 136 HDL 73 TSH 0.48 URINE DRUG SCREEN POSITIVE FOR CANNABIS URINE ANALYSIS NEGATIVE Appearnace: Inappropriate Speech: Tangential, Impoverished, Other Eye Contact: Other (INTERMITTENT) Motor Activity: Normal Affect: Constricted Orientation Impairment: Time Memory Impairment: None Attention: Distracted Hallucinations: Visual Other: None Suicidality: None Homicidality: None Delusions: Paraniod Behavior: Cooperative Insight: Poor Judgment: Poor Treatment ABILIFY 5 MG P.O. DAILY [place] 100 MG P.O. Q.H.S OLANZAPINE 10 MG P.O. Q.H.S. Monitoring by Staff, Milieu, Group, and Individual counseling as needed -- According to the [place] Suicide Assessment the above named patient is on Q 15 MINUTE CHECKS. VOLUNTARY REVIEW OF Clinical notes [X ] RN notes [X] PCT documentation [X] SW notes Labs [ X] Medications [X] Care trends/care activity [X] Vitals [X] DISCUSSION WITH switchboard operator receptionist [X] Staff SW [X] Treatment Team [X] Discharge DISCHARGE HOME ONCE STABLE. CODING VISIT-PSYCHIATRY Date of Service: September 24, 2024 Billing Provider: KERRIE RIZO APRN Psych Common Visit Codes: [id number] INP/OBS CARE(Mod) KERRIE RIZO APRN September 24, 2024 14:53
[2024-09-24 15:25] LABS: ALANINE AMINOTRANSFERASE 77 U/L (12-78); ALBUMIN 1.6 G/DL (3.4-5.0); ALKALINE PHOSPHATASE 849 IU/L (46-116); ANION GAP 8 (8-16); BILIRUBIN,TOTAL 23.9 MG/DL (0.1-1.0); BLOOD UREA NITROGEN 22 MG/DL (7-18); CALCIUM 8.5 MG/DL (8.5-10.1); CHLORIDE 104 MMOL/L (99-107); SODIUM 137 MMOL/L (135-145)
[2024-09-24 15:54] LABS: ALBUMIN/GLOBULIN RATIO 0.5 (1.1-1.5); ASPARTATE AMINO TRANSFERASE 164 U/L (10-37); BUN/CREATININE RATIO 23.2 (10.0-20.0); CREATININE 0.95 MG/DL (0.40-0.90); GLUCOSE 95 MG/DL (70-104); TOTAL PROTEIN 4.8 G/DL (6.4-8.2); eCRCL 56 ML/MIN; eGFR 61 ML/MIN
[2024-09-24 19:00] VITALS: RESP 20
[2024-09-24 20:00] VITALS: BP 119/52; PULSE 113; RESP 20; TEMP 99.2; O2SAT 93
[2024-09-24] MEDS ORDERED: traZODone 50mg tablet PO SCH (20:00)
[2024-09-25 07:30] VITALS: BP 80/40; PULSE 109; RESP 14; TEMP 97.3; O2SAT 88
--- NOTE | 2024-09-25 07:57 | PROGRESS NOTE ---
Progress Note Dictate Providers to CC ~ Central Line/PICC still needed: N\A Antibiotic Ordered?: No MRSA Education MRSA Education Provided to pt: No Objective Vitals Vital Signs Date Time Temp Pulse Resp B/P (MAP) Pulse Ox O2 Delivery O2 Flow Rate FiO2 09/25/24 07:14 20 09/24/24 20:00 99.2 113 119/52 (74) 93 Room Air Lab Results: 09/24/24 1141 09/24/24 1444 Problem\Assessment\Plan Problems/Diagnosis: (1) Schizoaffective disorder, bipolar type (2) Gravely disabled Psychiatrist's Progress Note Date of Service: September 25, 2024 CODING VISIT-PSYCHIATRY Date of Service: September 25, 2024 Billing Provider: KERRIE RIZO APRN Psych Common Visit Codes: [id number] INP/OBS CARE(Mod) KERRIE RIZO APRN September 25, 2024 07:57
[2024-09-25] MEDS ORDERED: FLUoxetine 20mg capsule PO SCH (08:00)
[2024-09-25] MEDS ORDERED: losartan 25mg tablet PO SCH (08:00)
--- NOTE | 2024-09-25 08:08 | PROGRESS NOTE ---
Progress Note Dictate Providers to CC ~ Central Line/PICC still needed: N\\A Antibiotic Ordered?: No Objective Vitals Vital Signs Date Time Temp Pulse Resp B/P (MAP) Pulse Ox O2 Delivery O2 Flow Rate FiO2 09/25/24 07:14 20 09/24/24 20:00 99.2 113 119/52 (74) 93 Room Air Lab Results: 09/24/24 1141 09/24/24 1444 Problem\\Assessment\\Plan Problems/Diagnosis: (1) Schizoaffective disorder, bipolar type (2) Gravely disabled Psychiatrist's Progress Note Date of Service: September 25, 2024 Notes CHART REVIEW Kia is a 55-year-old female on the medical floor of [facility] referred for a mental health evaluation. Toxicology report positive for THC. Kia is an active client of [facility]. Per [place] clinician, client has been decompensating over the past three months. Reporting that she had not been letting them into her home, most recent visitation clinician discovered home to be an unlivable declined. She stated that the client although reporting she has been eating and has food in her home, this information is boss, and client's physical well-being and weight loss is evident, and evidence verify and there is no food in the home. Client lives on her own in his uncertain if she has been able to maintain a medication regiment. ASSESSMENT The patient is interviewed in observation room. Patient seen actively resting with eyes closed. The patient endorses "fine." Denies SI. Denies HI. Denies AH. Patient endorses adequate sleep and food intake. The patient is stable no acute distress noted. The patient is less delusional, and disengaged during session. Per staff report no behavior issues. Per staff report patient is compliant with medication regimen. Will continue daily assessment and adjusting treatment as needed. Closely monitor behavior and response to medication during hospitalization Services is working to get patient admitted to hospice due to poor prognosis due to cancer. The patient has some acute medical issues, medical team is notified BP 80/40, O2 stats 88% on room air. Results Of any Diagn. Testing REVIEW OF LABS WBC 5.8 RBC 3.57 HEMOGLOBIN 13.3 HEMATOCRIT 39.0 PLATELET COUNT 262 SODIUM 129 POTASSIUM 3.6 ANION GAP11 BUN 21 CREATININE 1.66 HEMOGLOBIN A1C 5.4 CALCIUM 9.2 LITHIUM 2.1 ALBUMIN 3.4 TRIGLYCERIDES 143 CHOLESTEROL 240 LDL 136 HDL 73 TSH 0.48 URINE DRUG SCREEN POSITIVE FOR CANNABIS URINE ANALYSIS NEGATIVE Appearnace: Other Speech: Impoverished Eye Contact: Avoidant Motor Activity: Normal Affect: Constricted Insight: Poor Judgment: Poor Treatment ABILIFY 5 MG P.O. DAILY [place] 100 MG P.O. Q.H.S OLANZAPINE 10 MG P.O. Q.H.S. Monitoring by Staff, Milieu, Group, and Individual counseling as needed -- According to the [place] Suicide Assessment the above named patient is on Q 15 MINUTE CHECKS. VOLUNTARY REVIEW OF Clinical notes [X ] RN notes [X] PCT documentation [X] SW notes Labs [ X] Medications [X] Care trends/care activity [X] Vitals [X] DISCUSSION WITH manager store [X] Staff SW [X] Treatment Team [X] Discharge DISCHARGE HOME ONCE STABLE. CODING VISIT-PSYCHIATRY Date of Service: September 25, 2024 Billing Provider: KERRIE RIZO APRN Psych Common Visit Codes: [id number] INP/OBS CARE(High) KERRIE RIZO APRN September 25, 2024 08:08
[2024-09-25 08:34] VITALS: RESP 16
--- NOTE | 2024-10-02 18:40 | DISCHARGE SUMMARY ---
Discharge Summary Providers to CC ~ Discharge Summary Admission Diagnosis: SCHIZOAFFECTIVE DISORDER, BIPOLAR TYPE. GRAVELY DISABLED Hospital Course DATE OF ADMISSION: DATE OF DISCHARGE: Discharge Diagnosis\Comment: SCHIZOAFFECTIVE DISORDER, BIPOLAR TYPE. GRAVELY DISABLED Operations\Procedures: NONE Consultants: MEDICAL TEAM Complications: NONE Condition on DC: Stable for transfer 2 or more antipsychotic used: Yes 2/more antipsychotic addressed: Yes Does Patient smoke: Yes Smoking education given.: Yes Discharge Summary: Patient discharged to medical floor. [place]'s mental health is stable. *Problems/Diagnosis: (1) Schizoaffective disorder, bipolar type Status: Acute (2) Gravely disabled Status: Acute Total Time Spent on D/C: Up to 30 Minutes Counseling Services Smoking & Tobacco Cessation: 3-10 Minutes CODING VISIT-PSYCHIATRY Date of Service: September 25, 2024 Billing Provider: KERRIE RIZO APRN Psych Common Visit Codes: [id number] DISCH DAY <30min KERRIE RIZO APRN October 02, 2024 18:40
== END 2024-09-25 12:16 | disposition short-term general hospital (02) | DRG 885 ==
LOC: ADULT MH 17:45 → UNDOADMIN 17:45 → ADULT MH 23:25
PROVIDERS: ADMIT Psychiatry & Neurology Psychiatry; ATTEND Psychiatry & Neurology Psychiatry
PROC: GZHZZZZ Group Psychotherapy (ICD-10-PCS; principal; 2024-08-15)
PROC: GZ51ZZZ Individual Psychotherapy, Behavioral (ICD-10-PCS; 2024-08-15)
PROC: BW211ZZ Computerized Tomography (CT Scan) of Abdomen and Pelvis using Low Osmolar Contrast (ICD-10-PCS; 2024-08-19)
DX: F25.0 Schizoaffective disorder, bipolar type (principal); N17.9 Acute kidney failure, unspecified; E87.1 Hypo-osmolality and hyponatremia; E46 Unspecified protein-calorie malnutrition; C79.51 Secondary malignant neoplasm of bone; Z68.1 Body mass index [BMI] 19.9 or less, adult; C78.00 Secondary malignant neoplasm of unspecified lung; C78.89 Secondary malignant neoplasm of other digestive organs; E86.0 Dehydration; E87.6 Hypokalemia; F17.210 Nicotine dependence, cigarettes, uncomplicated; K59.09 Other constipation; F12.90 Cannabis use, unspecified, uncomplicated; K29.60 Other gastritis without bleeding; K76.0 Fatty (change of) liver, not elsewhere classified; F41.9 Anxiety disorder, unspecified; Z88.0 Allergy status to penicillin; Z79.899 Other long term (current) drug therapy; Z85.3 Personal history of malignant neoplasm of breast; Z51.5 Encounter for palliative care; Z88.8 Allergy status to other drugs, medicaments and biological substances
CPT/HCPCS: 36415; 70470; 74018; 74177; 80053; 80061; 81001; 83036; 83690; 83735; 83930; 84132; 84145; 84300; 84443; 85007; 85025; 85651; 87081; A6250; J0780; J1200; J3490; Q0163; Q0164; Q0177; Q9963; Q9967